=== PATIENT | male | born 1930 ===

== ENCOUNTER 2016-09-08 23:09 | Emergency (ER) | payer MEDICARE, MEDICAID ==
[2016-09-08 23:09] VITALS: BMI 18.9
[2016-09-08 23:18] VITALS: BP 151/88; PULSE 79; RESP 20; TEMP 97.9; O2SAT 99
[2016-09-09 01:02] LABS: BASO # 0.1 K/uL (0.0-0.2); EOS # 0.2 K/uL (0.0-0.7); EOS % 2.8 % (0.0-4.0); HEMATOCRIT 38.7 % (35.0-51.0); LYMPH # 1.1 K/uL (1.0-4.3); LYMPH % 13.1 % (20.0-40.0); MEAN CELL VOLUME 88.7 fl (80.0-94.0); MEAN CORPUSCULAR HEMOGLOBIN 29.8 pg (27.0-31.0); MEAN CORPUSCULAR HGB CONC 33.6 g/dL (33.0-37.0); MEAN PLATELET VOLUME 9.3 fl (7.2-11.7); MONO # 1.2 K/uL (0.0-0.8); MONO % 14.7 % (0.0-10.0); NEUT # 5.5 K/uL (1.8-7.0); NEUT % 68.4 % (50.0-75.0); NRBC % 0.1 % (0.0-0.0); RED CELL DISTRIBUTION WIDTH 14.8 % (11.5-14.5); WHITE BLOOD COUNT 8.1 K/uL (4.8-10.8)
[2016-09-09 01:03] LABS: BLOOD UREA NITROGEN 23 mg/dl (9-20); CALCIUM 8.6 mg/dL (8.4-10.2); CARBON DIOXIDE 27 mmol/L (22-30); CHLORIDE 104 mmol/L (98-107); GFR AFRICAN-AMERICAN > 60; GLUCOSE,RANDOM 75 mg/dL (75-110); POTASSIUM 4.3 MMOL/L (3.6-5.0); SODIUM 140 mmol/l (132-148)
--- NOTE | 2016-09-09 01:03 | ED PDOC ---
- ECG O2 Sat by Pulse Oximetry: 99 (RA) Pulse Ox Interpretation: Normal Medical Decision Making Medical Decision Making: Time: 2025 Initial impression: Strep Throat, Atypical ACS Initial plan: --EKG --BMP --TROPONIN I --EKG-ED --CBC --RAPID STREP GROUP Scribe Attestation: Documented by Sandee Alvares, acting as a scribe for Meliza Patino MD MD Scribe Attestation: All medical record entries made by the Scribe were at my direction and personally dictated by me. I have reviewed the chart and agree that the record accurately reflects my personal performance of the history, physical exam, medical decision making, and the department course for this patient. I have also personally directed, reviewed, and agree with the discharge instructions and disposition.
--- NOTE | 2016-09-09 01:06 | ED PDOC ---
HPI: General Adult Time Seen by Provider: 09/08/16 23:27 Chief Complaint (Nursing): Flu-like Symptoms Chief Complaint (Provider): Flu-Like Symptoms History Per: Patient History/Exam Limitations: no limitations Onset/Duration Of Symptoms: Persistent Have you had recent travel within the past 21 days to any of the following countries: [place], [place], [place] or [place]?: No Current Symptoms Are (Timing): Still Present Severity: Mild Recently: Treated By A Physician Additional Complaint(s): 85 y/o male patient presenting to the ED with throat pain. PT states that he has chronically been suffering from the throat pain and he has been seeing ENT physician Dr. Bustillos in addition to taking medication for the problem. What made him come to the ED tonight was the result of chills and shivering. He states that he only took Tylenol today and the PT denies chest pain and fever. The PT has a past medical history that includes: Atrial Fibrillation, diabetes and Hypertension. Past Medical History Reviewed: Historical Data, Nursing Documentation, Vital Signs Vital Signs: Last Vital Signs Temp 97.9 F 09/08/16 23:14 Pulse 79 09/08/16 23:14 Resp 20 09/08/16 23:14 BP 151/88 H 09/08/16 23:14 Pulse Ox 99 09/09/16 01:12 - Medical History PMH: Arthritis, Atrial Fibrillation, CAD, CHF, Diabetes, HTN, Hypothyroidism Denies: HIV, Chronic Kidney Disease - Surgical History Surgical History: CABG, Pacemaker - Family History Family History: States: Unknown Family Hx - Home Medications Home Medications: Ambulatory Orders Medication Instructions Recorded Aspirin [Ecotrin] 81 mg PO DAILY #0 tabec 07/21/14 Docusate Sodium/Sennosides A 1 tab PO DAILY 07/16/15 [Senokot S 50 MG-8.6 MG] Polyethylene Glycol 3350 [Miralax] 17 gm PO DAILY 07/16/15 Repaglinide [Prandin] 0.5 mg PO BID 07/16/15 Temazepam [Restoril] 30 mg PO HS 07/16/15 Levothyroxine [Synthroid] 50 mcg PO DAILY #30 tab 01/21/16 Atorvastatin [Lipitor] 10 mg PO DAILY 03/30/16 Metoprolol Tartrate [Lopressor] 25 mg PO DAILY 03/30/16 Pantoprazole Sodium [Protonix] 40 mg PO DAILY 03/30/16 Warfarin [Coumadin] 3 mg PO DAILY 03/30/16 Cetirizine HCl [Zyrtec] 10 mg PO DAILY #10 capsule 05/10/16 valACYclovir [Valtrex] 1 gm PO TID #30 tab 05/10/16 - Allergies Allergies/Adverse Reactions: Allergies Allergy/AdvReac Type Severity Reaction Status Date / Time No Known Allergies Allergy Verified 09/30/15 13:46 Review of Systems ROS Statement: Except As Marked, All Systems Reviewed And Found Negative Constitutional: Positive for: Chills. Negative for: Fever ENT: Positive for: Throat Pain Cardiovascular: Negative for: Chest Pain Respiratory: Negative for: Shortness of Breath Physical Exam - Reviewed Nursing Documentation Reviewed: Yes Vital Signs Reviewed: Yes - Physical Exam Appears: Positive for: Non-toxic, No Acute Distress Head Exam: Positive for: ATRAUMATIC, NORMAL INSPECTION, NORMOCEPHALIC Skin: Positive for: Normal Color, Warm ENT: Positive for: Normal ENT Inspection Neck: Positive for: Normal, Painless ROM, Supple Cardiovascular/Chest: Positive for: Regular Rate, Rhythm. Negative for: Murmur Respiratory: Positive for: Normal Breath Sounds. Negative for: Respiratory Distress Neurologic/Psych: Positive for: Alert, Oriented. Negative for: Motor/Sensory Deficits - Laboratory Results Result Diagrams: 09/09/16 00:01 09/09/16 00:01 - ECG O2 Sat by Pulse Oximetry: 99 (RA) Pulse Ox Interpretation: Normal Medical Decision Making Medical Decision Making: Time: 2016 Initial impression: Strep Throat, Atypical ACS Initial plan: --EKG --BMP --TROPONIN I --EKG-ED --CBC --RAPID STREP GROUP Scribe Attestation: Documented by Sandee Alvares, acting as a scribe for Meliza Patino MD MD Scribe Attestation: All medical record entries made by the Scribe were at my direction and personally dictated by me. I have reviewed the chart and agree that the record accurately reflects my personal performance of the history, physical exam, medical decision making, and the department course for this patient. I have also personally directed, reviewed, and agree with the discharge instructions and disposition. Disposition - Clinical Impression Clinical Impression: Pharyngitis - Patient ED Disposition Is Patient to be Admitted: No Doctor Will See Patient In The: Office Counseled Patient/Family Regarding: Studies Performed, Diagnosis, Need For Followup - Disposition Referrals: Lucio Carmen MD [Family Provider] - Jae Bustillos MD [Staff Provider] - Disposition: Routine/Home Disposition Time: 02:06 Condition: GOOD Additional Instructions: Follow up with your PCP in 2-3 days. Instructions: Pharyngitis (ED) Print Language: [place]LAND[place]
--- NOTE | 2016-09-09 13:59 | CARD ---
APPROVED REPORT EKG Measurement Heart [id number] <Conclusion> AV dual-paced rhythm with prolonged AV conduction Abnormal ECG
== END 2016-09-09 02:32 | disposition home or self-care (01) ==
LOC: H.ER 23:09
DX: J02.9 Acute pharyngitis, unspecified (principal)

== ENCOUNTER 2016-11-07 08:00 | Day surgery (SDC) | payer MEDICARE, MEDICAID ==
[2016-11-07] MEDS ORDERED: Lactated Ringer's 500 ML IV ONE (10:01)
[2016-11-07 10:25] VITALS: BP 143/733; PULSE 69; RESP 13; TEMP 96.4; O2SAT 100
[2016-11-07] MEDS ORDERED: Propofol 10 mg/ml Inj (20 ML) ONE (11:47)
== END 2016-11-07 13:01 | disposition home or self-care (01) ==
LOC: H.ENDO 08:00
PROVIDERS: ATTEND Internal Medicine Gastroenterology
DX: R13.10 Dysphagia, unspecified (principal); I48.91 Unspecified atrial fibrillation; E11.9 Type 2 diabetes mellitus without complications; E03.9 Hypothyroidism, unspecified; K44.9 Diaphragmatic hernia without obstruction or gangrene; K31.9 Disease of stomach and duodenum, unspecified; Z98.0 Intestinal bypass and anastomosis status
CPT/HCPCS: 43239; 88305; J2001; J2704; J7120

== ENCOUNTER 2016-12-15 08:45 | Inpatient (IN) | payer MEDICARE, MEDICAID ==
[2016-12-15 08:46] VITALS: BMI 18.9
--- NOTE | 2016-12-15 09:52 | ED PDOC ---
Syncope/Near Syncope/Dizziness Time Seen by Provider: 12/15/16 09:14 Chief Complaint (Nursing): Dizziness/Lightheaded Chief Complaint (Provider): Dizziness/Lightheaded History Per: Patient History/Exam Limitations: no limitations Current Symptoms Are (Timing): Still Present Additional Complaint(s): 86 y/o male presents to the emergency department after experiencing syncopal episode this morning. Associated with generalized weakness and lightheadedness. Reports he woke up around 6am, felt hot, walked to the bathroom, and when he made it back to the bed he passed out. States he then woke up and was still on the bed. Patient has been ambulating since syncopal episode. Also complaints of a throat pain x2 months, after evaluated by ears, nose, throat doctor and given Cepacol. Denies chest pain, palpitations, shortness of breath, headache, paresthesias, or focal weakness. Past Medical History Reviewed: Historical Data, Nursing Documentation, Vital Signs Vital Signs: Last Vital Signs Temp 96 F L 12/15/16 08:59 Pulse 69 12/15/16 08:59 Resp 18 12/15/16 08:59 BP 150/69 12/15/16 08:59 Pulse Ox 100 12/15/16 08:59 - Medical History PMH: Arthritis, Atrial Fibrillation, CAD, Cardia Arrhythmia (A-FIB), CHF, Diabetes, HTN, Hypothyroidism Denies: HIV, Chronic Kidney Disease - Surgical History Surgical History: CABG, Pacemaker - Family History Family History: States: Unknown Family Hx - Social History Current smoker - smoking cessation education provided: No Alcohol: None Drugs: Denies - Home Medications Home Medications: Ambulatory Orders Medication Instructions Recorded Atorvastatin [Lipitor] 10 mg PO HS 12/15/16 Hyoscyamine [Levsin] 0.125 mg PO BID 12/15/16 Loratadine [Claritin] 10 mg PO DAILY PRN 12/15/16 Metoprolol Tartrate [Lopressor] 25 mg PO DAILY 12/15/16 Repaglinide [Prandin] 0.5 mg PO BID 12/15/16 Temazepam [Restoril] 30 mg PO HS 12/15/16 Warfarin [Coumadin] 3 mg PO DAILY 12/15/16 - Allergies Allergies/Adverse Reactions: Allergies Allergy/AdvReac Type Severity Reaction Status Date / Time No Known Allergies Allergy Verified 09/30/15 13:46 Review of Systems ROS Statement: Except As Marked, All Systems Reviewed And Found Negative Constitutional: Positive for: Weakness (Generalized), Other (Lightheadedness) ENT: Positive for: Throat Pain Cardiovascular: Negative for: Chest Pain, Palpitations Respiratory: Negative for: Shortness of Breath Musculoskeletal: Negative for: Other (Paresthesias) Neurological: Positive for: Other (Syncope). Negative for: Weakness (No focal weakness), Headache Physical Exam - Reviewed Nursing Documentation Reviewed: Yes Vital Signs Reviewed: Yes - Physical Exam Appears: Positive for: Non-toxic, No Acute Distress Head Exam: Positive for: ATRAUMATIC, NORMAL INSPECTION, NORMOCEPHALIC Skin: Positive for: Normal Color, Warm, Dry Eye Exam: Positive for: Normal appearance ENT: Positive for: Normal ENT Inspection. Negative for: Pharyngeal Erythema, Tonsillar Swelling Neck: Positive for: Normal, Supple Cardiovascular/Chest: Positive for: Regular Rate, Rhythm. Negative for: Murmur Respiratory: Positive for: Normal Breath Sounds. Negative for: Accessory Muscle Use, Respiratory Distress Gastrointestinal/Abdominal: Positive for: Normal Exam, Soft. Negative for: Tenderness Back: Positive for: Normal Inspection Extremity: Positive for: Normal ROM. Negative for: Pedal Edema Neurologic/Psych: Positive for: Alert, diagnostic radiologist II-XII (Intact. ), Oriented (x3), Cerebellar Tests (Normal. ). Negative for: Motor/Sensory Deficits, Facial Droop - Laboratory Results Result Diagrams: 12/17/16 05:30 12/17/16 05:30 - ECG O2 Sat by Pulse Oximetry: 100 (RA) Pulse Ox Interpretation: Normal Medical Decision Making Medical Decision Making: Time: 09:37 Initial Impression: Syncope and chronic throat pain Initial Plan: --VBG Shock Panel --Head CT --EKG --CMP --Troponin I --Urine DIP --CBC w. diff --PTT & Prothrombin --Chest x-ray --Blood and throat culture --AccuCheck --Rapid Strep Group --Urinalysis --Reevaluation Time: 10:03 --Head CT FINDINGS: HEMORRHAGE: No acute hemorrhage. Bilateral frontal extra-axial low-density fluid collections with mild sulcal flattening likely representing chronic subdural hygromas. Differential diagnosis would include bilateral frontal atrophy. This is grossly unchanged in appearance and extent when compared to prior CT examination. No evidence of acute extra-axial hemorrhage. BRAIN: No mass effect or edema. Mild generalized atrophy consistent with patient age. VENTRICLES: Unremarkable. No hydrocephalus. CALVARIUM: Unremarkable. PARANASAL SINUSES: Minimal chronic right maxillary sinusitis. Small polyp/retention cyst at right frontoethmoidal recess. MASTOID AIR CELLS: Unremarkable as visualized. No inflammatory changes. OTHER FINDINGS: None. 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 No acute intracranial hemorrhage. No intracranial mass or evidence of acute infarct. Chronic right maxillary sinusitis. Small retention cyst/polyp at right frontoethmoidal recess. Time: 11:56 --Admit to hospital routine: As Inpatient in telemetry for syncope and throat pain under the care of Dr. vIette Farias MD Scribe Attestation: Documented by Marisol Clifford, acting as a scribe for Naa Hernandez MD. Provider Scribe Attestation: All medical record entries made by the Scribe were at my direction and personally dictated by me. I have reviewed the chart and agree that the record accurately reflects my personal performance of the history, physical exam, medical decision making, and the department course for this patient. I have also personally directed, reviewed, and agree with the discharge instructions and disposition. Disposition - Clinical Impression Clinical Impression: Syncope and collapse, Throat pain - Patient ED Disposition Is Patient to be Admitted: Yes (As Inpatient in telemetry under the care of Dr. Ivette Farias MD) Counseled Patient/Family Regarding: Studies Performed, Diagnosis - Disposition Disposition Time: 11:56 Condition: STABLE
--- NOTE | 2016-12-15 10:05 | CT ---
PROCEDURE: CT HEAD WITHOUT CONTRAST. HISTORY: Syncope COMPARISON: 01/21/2016 TECHNIQUE: Axial computed tomography images were obtained through the head/brain without intravenous contrast. Radiation dose: Total exam DLP = 888.51 mGy-cm. This CT exam was performed using one or more of the following dose reduction techniques: Automated exposure control, adjustment of the mA and/or kV according to patient size, and/or use of iterative reconstruction technique. FINDINGS: HEMORRHAGE: No acute hemorrhage. Bilateral frontal extra-axial low-density fluid collections with mild sulcal flattening likely representing chronic subdural hygromas. Differential diagnosis would include bilateral frontal atrophy. This is grossly unchanged in appearance and extent when compared to prior CT examination. No evidence of acute extra-axial hemorrhage. BRAIN: No mass effect or edema. Mild generalized atrophy consistent with patient age. VENTRICLES: Unremarkable. No hydrocephalus. CALVARIUM: Unremarkable. PARANASAL SINUSES: Minimal chronic right maxillary sinusitis. Small polyp/retention cyst at right frontoethmoidal recess. MASTOID AIR CELLS: Unremarkable as visualized. No inflammatory changes. OTHER FINDINGS: None. 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 No acute intracranial hemorrhage. No intracranial mass or evidence of acute infarct. Chronic right maxillary sinusitis. Small retention cyst/polyp at right frontoethmoidal recess.
[2016-12-15 10:17] LABS: BASO % 0.6 % (0.0-2.0); EOS # 0.1 K/uL (0.0-0.7); EOS % 1.5 % (0.0-4.0); HEMATOCRIT 43.8 % (35.0-51.0); LYMPH # 0.8 K/uL (1.0-4.3); LYMPH % 12.6 % (20.0-40.0); MEAN CELL VOLUME 88.1 fl (80.0-94.0); MEAN CORPUSCULAR HEMOGLOBIN 28.9 pg (27.0-31.0); MEAN CORPUSCULAR HGB CONC 32.8 g/dL (33.0-37.0); MEAN PLATELET VOLUME 9.2 fl (7.2-11.7); MONO # 0.7 K/uL (0.0-0.8); NEUT # 4.6 K/uL (1.8-7.0); NEUT % 74.3 % (50.0-75.0); NRBC % 0.1 % (0.0-0.0); WHITE BLOOD COUNT 6.2 K/uL (4.8-10.8)
[2016-12-15 10:22] LABS: VENOUS BLOOD GAS BASE EXCESS 5.7 mmol/L (0.0-2.0); VENOUS BLOOD GAS PCO2 53 mmHg (40-60); VENOUS BLOOD PH 7.39 (7.32-7.43)
[2016-12-15 10:27] LABS: ALB/GLOB RATIO 1.3 (1.0-2.1); ALKALINE PHOSPHATASE 115 U/L (38-126); ALT/SGPT 41 U/L (21-72); AST/SGOT 46 U/L (17-59); BILIRUBIN,TOTAL 0.7 mg/dl (0.2-1.3); BLOOD UREA NITROGEN 23 mg/dl (9-20); CALCIUM 9.7 mg/dL (8.4-10.2); CARBON DIOXIDE 27 mmol/L (22-30); CHLORIDE 103 mmol/L (98-107); GFR AFRICAN-AMERICAN > 60; GLUCOSE,RANDOM 110 mg/dL (75-110); SODIUM 146 mmol/l (132-148)
[2016-12-15 10:33] LABS: PARTIAL THROMBOPLASTIN TIME 39.8 Seconds (25.6-37.1); POTASSIUM 5.1 MMOL/L (3.6-5.0)
--- NOTE | 2016-12-15 11:53 | RAD ---
HISTORY: Syncope COMPARISON: No prior. FINDINGS: LUNGS: No infiltrate. Mild pulmonary hyperinflation suggestive of emphysema. Correlate clinically. PLEURA: No significant pleural effusion identified, no pneumothorax apparent. CARDIOVASCULAR: Normal heart size. Status post CABG. Permanent pacemaker. OSSEOUS STRUCTURES: No significant abnormalities. VISUALIZED UPPER ABDOMEN: Normal. OTHER FINDINGS: None. IMPRESSION: No acute infiltrate.
[2016-12-15 12:06] LABS: RBC URINE 1 /hpf (0-3); URINE BACTERIA RARE (<OCC); URINE BILIRUBIN NEGATIVE (NEGATIVE); URINE BLOOD NEGATIVE (NEGATIVE); URINE COLOR STRAW (YELLOW); URINE GLUCOSE (UA) NEG (Normal); URINE KETONE NEGATIVE (NEGATIVE); URINE LEUKOCYTE ESTERASE NEG Leu/uL (Negative); URINE PROTEIN NEGATIVE (NEGATIVE); URINE UROBILINOGEN 0.2-1.0 mg/dL (0.2-1.0); WBC URINE < 1 /hpf (0-5)
[2016-12-15] MEDS ORDERED: Iodixanol 320 mg/ml 50 ml Sol IV ONE (12:50)
[2016-12-15] MEDS ORDERED: Sodium Chloride 0.9% 50 ML IV ONE (12:50)
--- NOTE | 2016-12-15 14:19 | CP.PCM.CON ---
History of Present Illness - History of Present Illness History of Present Illness: Mr. Sarmiento is an 86-year-old man with a past medical history of arthritis, hearing loss, previous otitis media, Atrial Fibrillation, CAD, atrial fibrillation, CHF, Diabetes, HTN, Hypothyroidism, who presented to the ED after an episode of syncope. According to the patient, he got out of bed in the morning and felt light-headed, weak and thought he would pass out. He went back to bed, where he lost consciousness for about 5-10 minutes. He woke up and did not have any tongue biting, urinary/bowel incontinence or any evidence of convulsions or muscle aches. He woke up and was still feeling a little light -headed, but he was able to ambulate to the ED. Review of Systems - Review of Systems All systems: reviewed and no additional remarkable complaints except Past Patient History - Infectious Disease Hx of Infectious Diseases: None - Past Medical History & Family History Past Medical History?: Yes - Past Social History Alcohol: None Drugs: Denies - CARDIAC Hx Cardiac Disorders: Yes - PULMONARY Hx Respiratory Disorders: No - NEUROLOGICAL Hx Neurological Disorder: No - HEENT Hx HEENT Problems: No - RENAL Hx Chronic Kidney Disease: No - ENDOCRINE/METABOLIC Hx Endocrine Disorders: Yes - HEMATOLOGICAL/ONCOLOGICAL Hx Blood Disorders: No - INTEGUMENTARY Hx Dermatological Problems: No - MUSCULOSKELETAL/RHEUMATOLOGICAL Hx Musculoskeletal Disorders: No - GASTROINTESTINAL Hx Gastrointestinal Disorders: No - GENITOURINARY/GYNECOLOGICAL Hx Genitourinary Disorders: No - PSYCHIATRIC Hx Psychophysiologic Disorder: No - SURGICAL HISTORY Hx Coronary Artery Bypass Graft: Yes - ANESTHESIA Hx Anesthesia: Yes Hx Anesthesia Reactions: No Hx Malignant Hyperthermia: No Meds Allergies/Adverse Reactions: Allergies Allergy/AdvReac Type Severity Reaction Status Date / Time No Known Allergies Allergy Verified 09/30/15 13:46 - Medications Medications: Current Medications Aspirin (Ecotrin) 81 mg PO DAILY [facility] Last Admin: 12/15/16 12:20 Dose: 81 mg Atorvastatin Calcium (Lipitor) 10 mg PO DAILY [facility] Physical Exam - Constitutional Appears: Well - Head Exam Head Exam: ATRAUMATIC, NORMAL INSPECTION, NORMOCEPHALIC - Eye Exam Eye Exam: EOMI, Normal appearance, PERRL - ENT Exam ENT Exam: Mucous Membranes Moist, Normal Exam - Neck Exam Neck exam: Positive for: Normal Inspection - Respiratory Exam Respiratory Exam: Clear to Auscultation Bilateral, NORMAL BREATHING PATTERN - Cardiovascular Exam Cardiovascular Exam: Irregular Rhythm, +S1, +S2 - GI/Abdominal Exam GI & Abdominal Exam: Normal Bowel Sounds, Soft. absent: Tenderness - Rectal Exam Rectal Exam: Deferred - Extremities Exam Extremities exam: Positive for: normal inspection - Back Exam Back exam: NORMAL INSPECTION - Neurological Exam Neurological exam: Alert, CN II-XII Intact, Normal Gait, Oriented x3, Reflexes Normal - Expanded Neurological Exam Expanded Patient oriented to: person, place, time Ataxia: No Cerebellar Function: Finger to Nose: Normal, Heel to [place]: Normal Upper motor neuron: Babinski Sign: Normal Sensory exam: Lower Extremity Light Touch: Normal, Lower Extremity Pin Prick: Normal, Upper Extremity Light Touch: Normal, Upper Extremity Pin Prick: Normal Neuro motor strength exam: Left Upper Extremity: 5, Right Upper Extremity: 5, Left Lower Extremity: 5, Right Lower Extremity: 5 DTR: Achilles Tendon Left: 2+, Achilles Tendon Right: 2+, Bicep Left: 2+, Bicep Right: 2+, Brachioradialis Left: 2+, Brachioradialis Right: 2+, Patellar Left: 2 +, Patellar Right: 2+, Tricep Left: 2+, Tricep Right: 2+ - Psychiatric Exam Psychiatric exam: Normal Affect, Normal Mood - Skin Skin Exam: Dry, Intact, Normal Color, Warm Results - Vital Signs Recent Vital Signs: Last Vital Signs Temp 96 F L 12/15/16 08:59 Pulse 69 12/15/16 08:59 Resp 18 12/15/16 08:59 BP 150/69 12/15/16 08:59 Pulse Ox 100 12/15/16 12:00 - Labs Result Diagrams: 12/15/16 10:04 12/15/16 10:04 Labs: Laboratory Results - last 24 hr 12/15/16 12/15/16 12/15/16 09:11 09:52 10:04 WBC 6.2 RBC 4.97 Hgb 14.4 Hct 43.8 MCV 88.1 MCH 28.9 MCHC 32.8 L RDW 15.0 H Plt Count 166 MPV 9.2 Neut % (Auto) 74.3 Lymph % (Auto) 12.6 L [place] % (Auto) 11.0 H Eos % (Auto) 1.5 Baso % (Auto) 0.6 Neut # 4.6 Lymph # 0.8 L [place] # 0.7 Eos # 0.1 Baso # 0.0 PT INR APTT pO2 VBG pH VBG pCO2 VBG HCO3 VBG Total CO2 VBG O2 Sat (Calc) VBG Base Excess VBG Potassium Glucose Lactate FiO2 Sodium Potassium Chloride Carbon Dioxide Anion Gap BUN Creatinine Est GFR ( Amer) Est GFR (Non-Af Amer) POC Glucose (mg/dL) 98 Random Glucose Calcium Total Bilirubin AST ALT Alkaline Phosphatase Troponin I Total Protein Albumin Globulin Albumin/Globulin Ratio Venous Blood Potassium Urine Color Urine Clarity Urine pH Ur Specific [place] Urine Protein Urine Glucose (UA) Urine Ketones Urine Blood Urine Nitrate Urine Bilirubin Urine Urobilinogen Ur Leukocyte Esterase Urine RBC (Auto) Urine Microscopic WBC Urine Bacteria Grp A Beta Strep Ag Negative 12/15/16 12/15/16 12/15/16 10:04 10:04 10:15 WBC RBC Hgb Hct MCV MCH MCHC RDW Plt Count MPV Neut % (Auto) Lymph % (Auto) [place] % (Auto) Eos % (Auto) Baso % (Auto) Neut # Lymph # [place] # Eos # Baso # PT 20.1 H INR 1.9 H APTT 39.8 H pO2 13 L VBG pH 7.39 VBG pCO2 53 VBG HCO3 27.1 VBG Total CO2 33.7 H VBG O2 Sat (Calc) 17.1 L VBG Base Excess 5.7 H VBG Potassium 5.1 Glucose 115 H Lactate 2.1 FiO2 21.0 Sodium 146 140.0 Potassium 5.1 H Chloride 103 104.0 Carbon Dioxide 27 Anion Gap 21 H BUN 23 H Creatinine 1.1 Est GFR ( Amer) > 60 Est GFR (Non-Af Amer) > 60 POC Glucose (mg/dL) Random Glucose 110 Calcium 9.7 Total Bilirubin 0.7 AST 46 ALT 41 Alkaline Phosphatase 115 Troponin I < 0.0120 Total Protein 8.0 Albumin 4.5 Globulin 3.5 Albumin/Globulin Ratio 1.3 Venous Blood Potassium 5.1 Urine Color Urine Clarity Urine pH Ur Specific [place] Urine Protein Urine Glucose (UA) Urine Ketones Urine Blood Urine Nitrate Urine Bilirubin Urine Urobilinogen Ur Leukocyte Esterase Urine RBC (Auto) Urine Microscopic WBC Urine Bacteria Grp A Beta Strep Ag 12/15/16 11:50 WBC RBC Hgb Hct MCV MCH MCHC RDW Plt Count MPV Neut % (Auto) Lymph % (Auto) [place] % (Auto) Eos % (Auto) Baso % (Auto) Neut # Lymph # [place] # Eos # Baso # PT INR APTT pO2 VBG pH VBG pCO2 VBG HCO3 VBG Total CO2 VBG O2 Sat (Calc) VBG Base Excess VBG Potassium Glucose Lactate FiO2 Sodium Potassium Chloride Carbon Dioxide Anion Gap BUN Creatinine Est GFR ( Amer) Est GFR (Non-Af Amer) POC Glucose (mg/dL) Random Glucose Calcium Total Bilirubin AST ALT Alkaline Phosphatase Troponin I Total Protein Albumin Globulin Albumin/Globulin Ratio Venous Blood Potassium Urine Color Straw Urine Clarity Clear Urine pH 7.0 Ur Specific [place] 1.010 Urine Protein Negative Urine Glucose (UA) Neg Urine Ketones Negative Urine Blood Negative Urine Nitrate Negative Urine Bilirubin Negative Urine Urobilinogen 0.2-1.0 Ur Leukocyte Esterase Neg Urine RBC (Auto) 1 Urine Microscopic WBC < 1 Urine Bacteria Rare Grp A Beta Strep Ag Assessment & Plan (1) Syncope and collapse Assessment and Plan: Based on the history, the patient likely had neuro-cardiogenic or vasovagal syncope. No indication this was a seizure. I recommend obtaining orthostatics , and a CTA of the head/neck to rule out vertebrobasilar insufficiency. Otherwise, a cardiac work-up is recommended. Continue fluids with NS at 100 mL/ hr and treat any potential infectious etiology. MRI of the brain may be obtain without contrast to rule out posterior circulation infarction. Thank you. Status: Acute Priority: Medium
--- NOTE | 2016-12-15 14:32 | CP.PCM.HP ---
History of Present Illness - History of Present Illness History of Present Illness: 86yo M with extensive PMHx CAD, CHF, Afib, pacemaker, HTN, HLD, DM, hypothyroidism admitted for syncope. syncopal episode today upon awakening from sleep to go to bathroom with LOC on bed for ~5-15 minutes unwitnessed at ~6AM today. a/w dizziness x2 months. h/o prior admission 01/2016 for dizziness and inner ear issue. Denies fever, chills, n/v, chest pain, SOB, focal weakness, new neuro deficits, slurring speech, vision change, bladder/bowel incontinence. a/w sore throat x 2 months, evaluated by ENT Dr. Bahena and GI Dr Epperson with findings of gastritis. pt not compliant with medication. PMD: [facility] Cardiology Dr. Shelley PMHx: CAD, CHF, Afib, pacemaker, HTN, HLD, DM, hypothyroidism SHx: CABG, Pacemaker Allergies: NKDA Social hx: denies smoking, EtOH, drugs. 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 Medications: checked with [facility] ED course: GBS neg CBC no leukocytosis, no anemia CT head no acute change, Chronic sinusitis CXR no acute change orthostatic vitals EKG CMP troponin neg Present on Admission - Present on Admission Any Indicators Present on Admission: No Review of Systems - Review of Systems All systems: reviewed and no additional remarkable complaints except - Neurological Neurological: Dizziness, Syncope Past Patient History - Infectious Disease Hx of Infectious Diseases: None - Past Medical History & Family History Past Medical History?: Yes - Past Social History Alcohol: None Drugs: Denies - CARDIAC Hx Cardiac Disorders: Yes - PULMONARY Hx Respiratory Disorders: No - NEUROLOGICAL Hx Neurological Disorder: No - HEENT Hx HEENT Problems: No - RENAL Hx Chronic Kidney Disease: No - ENDOCRINE/METABOLIC Hx Endocrine Disorders: Yes - HEMATOLOGICAL/ONCOLOGICAL Hx Blood Disorders: No - INTEGUMENTARY Hx Dermatological Problems: No - MUSCULOSKELETAL/RHEUMATOLOGICAL Hx Musculoskeletal Disorders: No - GASTROINTESTINAL Hx Gastrointestinal Disorders: No - GENITOURINARY/GYNECOLOGICAL Hx Genitourinary Disorders: No - PSYCHIATRIC Hx Psychophysiologic Disorder: No - SURGICAL HISTORY Hx Coronary Artery Bypass Graft: Yes - ANESTHESIA Hx Anesthesia: Yes Hx Anesthesia Reactions: No Hx Malignant Hyperthermia: No Meds Allergies/Adverse Reactions: Allergies Allergy/AdvReac Type Severity Reaction Status Date / Time No Known Allergies Allergy Verified 09/30/15 13:46 Physical Exam - Constitutional Appears: Non-toxic, No Acute Distress - Head Exam Head Exam: NORMAL INSPECTION - Eye Exam Eye Exam: EOMI, PERRL - ENT Exam ENT Exam: Mucous Membranes Moist - Neck Exam Neck exam: Positive for: Lymphadenopathy, Normal Inspection - Respiratory Exam Respiratory Exam: Clear to Auscultation Bilateral - Cardiovascular Exam Cardiovascular Exam: REGULAR RHYTHM Additional comments: pacemaker paced - GI/Abdominal Exam GI & Abdominal Exam: Normal Bowel Sounds, Soft - Extremities Exam Extremities exam: Positive for: normal inspection, pedal edema - Back Exam Back exam: NORMAL INSPECTION - Neurological Exam Neurological exam: Alert, CN II-XII Intact, Oriented x3 - Skin Skin Exam: Dry, Warm Results - Vital Signs Recent Vital Signs: Last Vital Signs Temp 96 F L 12/15/16 08:59 Pulse 69 12/15/16 08:59 Resp 18 12/15/16 08:59 BP 150/69 12/15/16 08:59 Pulse Ox 100 12/15/16 12:00 - Labs Result Diagrams: 12/15/16 10:04 12/15/16 10:04 Labs: Laboratory Results - last 24 hr 12/15/16 12/15/16 12/15/16 09:11 09:52 10:04 WBC 6.2 RBC 4.97 Hgb 14.4 Hct 43.8 MCV 88.1 MCH 28.9 MCHC 32.8 L RDW 15.0 H Plt Count 166 MPV 9.2 Neut % (Auto) 74.3 Lymph % (Auto) 12.6 L Hancock % (Auto) 11.0 H Eos % (Auto) 1.5 Baso % (Auto) 0.6 Neut # 4.6 Lymph # 0.8 L Hancock # 0.7 Eos # 0.1 Baso # 0.0 PT INR APTT pO2 VBG pH VBG pCO2 VBG HCO3 VBG Total CO2 VBG O2 Sat (Calc) VBG Base Excess VBG Potassium Glucose Lactate FiO2 Sodium Potassium Chloride Carbon Dioxide Anion Gap BUN Creatinine Est GFR ( Amer) Est GFR (Non-Af Amer) POC Glucose (mg/dL) 98 Random Glucose Calcium Total Bilirubin AST ALT Alkaline Phosphatase Troponin I Total Protein Albumin Globulin Albumin/Globulin Ratio Triglycerides Cholesterol LDL Cholesterol Direct HDL Cholesterol Vitamin B12 TSH 3rd Generation Venous Blood Potassium Urine Color Urine Clarity Urine pH Ur Specific [place] Urine Protein Urine Glucose (UA) Urine Ketones Urine Blood Urine Nitrate Urine Bilirubin Urine Urobilinogen Ur Leukocyte Esterase Urine RBC (Auto) Urine Microscopic WBC Urine Bacteria Grp A Beta Strep Ag Negative 12/15/16 12/15/16 12/15/16 10:04 10:04 10:15 WBC RBC Hgb Hct MCV MCH MCHC RDW Plt Count MPV Neut % (Auto) Lymph % (Auto) Hancock % (Auto) Eos % (Auto) Baso % (Auto) Neut # Lymph # Hancock # Eos # Baso # PT 20.1 H INR 1.9 H APTT 39.8 H pO2 13 L VBG pH 7.39 VBG pCO2 53 VBG HCO3 27.1 VBG Total CO2 33.7 H VBG O2 Sat (Calc) 17.1 L VBG Base Excess 5.7 H VBG Potassium 5.1 Glucose 115 H Lactate 2.1 FiO2 21.0 Sodium 146 140.0 Potassium 5.1 H Chloride 103 104.0 Carbon Dioxide 27 Anion Gap 21 H BUN 23 H Creatinine 1.1 Est GFR ( Amer) > 60 Est GFR (Non-Af Amer) > 60 POC Glucose (mg/dL) Random Glucose 110 Calcium 9.7 Total Bilirubin 0.7 AST 46 ALT 41 Alkaline Phosphatase 115 Troponin I < 0.0120 Total Protein 8.0 Albumin 4.5 Globulin 3.5 Albumin/Globulin Ratio 1.3 Triglycerides Cholesterol LDL Cholesterol Direct HDL Cholesterol Vitamin B12 413 TSH 3rd Generation 13.20 H Venous Blood Potassium 5.1 Urine Color Urine Clarity Urine pH Ur Specific [place] Urine Protein Urine Glucose (UA) Urine Ketones Urine Blood Urine Nitrate Urine Bilirubin Urine Urobilinogen Ur Leukocyte Esterase Urine RBC (Auto) Urine Microscopic WBC Urine Bacteria Grp A Beta Strep Ag 12/15/16 12/15/16 11:50 12:29 WBC RBC Hgb Hct MCV MCH MCHC RDW Plt Count MPV Neut % (Auto) Lymph % (Auto) [place] % (Auto) Eos % (Auto) Baso % (Auto) Neut # Lymph # Hancock # Eos # Baso # PT INR APTT pO2 VBG pH VBG pCO2 VBG HCO3 VBG Total CO2 VBG O2 Sat (Calc) VBG Base Excess VBG Potassium Glucose Lactate FiO2 Sodium Potassium Chloride Carbon Dioxide Anion Gap BUN Creatinine Est GFR ( Amer) Est GFR (Non-Af Amer) POC Glucose (mg/dL) Random Glucose Calcium Total Bilirubin AST ALT Alkaline Phosphatase Troponin I Total Protein Albumin Globulin Albumin/Globulin Ratio Triglycerides Cancelled Cholesterol Cancelled LDL Cholesterol Direct Cancelled HDL Cholesterol Cancelled Vitamin B12 Cancelled TSH 3rd Generation Cancelled Venous Blood Potassium Urine Color Straw Urine Clarity Clear Urine pH 7.0 Ur Specific [place] 1.010 Urine Protein Negative Urine Glucose (UA) Neg Urine Ketones Negative Urine Blood Negative Urine Nitrate Negative Urine Bilirubin Negative Urine Urobilinogen 0.2-1.0 Ur Leukocyte Esterase Neg Urine RBC (Auto) 1 Urine Microscopic WBC < 1 Urine Bacteria Rare Grp A Beta Strep Ag Assessment & Plan - Assessment and Plan (Free Text) Assessment: 86yo M with extensive PMHx CAD, CHF, Afib, pacemaker, HTN, HLD, DM, hypothyroidism admitted for syncope. syncope with h/o extensive cardiac comorbidites -consider vasovagal, orthostatic hypotension, chronic sinusitis -ECHO -CTA head/neck -orthostatic vitals -neuro c/s, appreciate input chronic sinusitis -CT head, chronic sinustitis -start augmentin CAD -c/w ASA CHF -ECHO Afib (s/p pacemaker) -INR 1.9 -AM INR check -coumadin for tomorrow as pt not sure if he took it HLD -c/w statin -lipid panel DM -hold prandin -HgbA1c -SSI -accuchecks hypothyroidism -TFTs, elevated TSH -restart synthroid 50mcg DVT ppx -coumadin tomorrow Decision To Admit - Pt Status Changed To: Hospital Disposition Of: Inpatient - Admit Certification Admit to Inpatient:: After my assessment, the patient will require hospitalization for at least two midnights. This is because of the severity of symptoms shown, intensity of services needed, and/or the medical risk in this patient being treated as an outpatient. - . Bed Request Type: Telemetry Admitting Physician: Ivette Farias
[2016-12-15 14:34] LABS: CHOLESTEROL 165 mg/dL (0-199)
[2016-12-15] MEDS ORDERED: Glucagon Recombinant 1 mg Inj IM PRN (14:58)
[2016-12-15] MEDS ORDERED: Dextrose 50% SYRINGE Inj (50 ml) IV PRN (14:58)
--- NOTE | 2016-12-15 15:55 | CT ---
PROCEDURE: CT Angiography of the Brain. HISTORY: syncope COMPARISON: None available. TECHNIQUE: CT angiography of the intracranial arteries was performed. Coronal and sagittal maximum intensity projection reformated images were generated. Total radiation dose DLP: 2259.[address] exam was performed using one or more of the following dose reduction techniques: Automated exposure control, adjustment of the mA and/or kV according to patient size, and/or use of iterative reconstruction technique. FINDINGS: INTERNAL CEREBRAL ARTERIES: Unremarkable. The skull base, petrous, cavernous and supraclinoid segments are bilaterally widely patient. ANTERIOR CEREBRAL ARTERIES: Unremarkable. A1 and A2 segments are widely patent. Smaller distal branches unremarkable, as visualized. MIDDLE CEREBRAL ARTERIES: Unremarkable. M1 and M2 segments are widely patent. Perisylvian branches grossly symmetric. POSTERIOR CIRCULATION: Basilar Artery: Unremarkable. Distal Vertebral Arteries: Unremarkable. Posterior Cerebral Arteries: Unremarkable. Posterior Inferior Cerebellar Arteries: Unremarkable. ANEURYSM/ VASCULAR MALFORMATIONS: None. OTHER FINDINGS: CERVICAL CTA RESULTS: Common carotid arteries: The bilateral common carotid appear widely patent from their origins to their bifurcations with no significant stenosis appreciated. No evidence to suggest common carotid artery dissection. Limited bilateral carotid bulbar atherosclerosis appreciated. Internal carotid arteries: No significant stenosis is appreciated throughout the cervical internal carotid artery segments bilaterally and there is no evidence of dissection either. Vertebral arteries: The bilateral vertebral artery normal in caliber from their origins to their union with the basilar artery. Vertebrobasilar system appears left dominant. No significant stenosis or definite pattern of dissection. Incidentally, the bilateral subclavian arteries are widely patent as well as the brachiocephalic artery, though mildly atherosclerotic. IMPRESSION: Unremarkable CT Angiography of the Brain.
[2016-12-15] MEDS: Sodium Chloride 0.9% 500 ML IV SCH (16:00)
[2016-12-15] MEDS ORDERED: Influenza Vaccine 18yr & older 0.5 ML/45 MCG SYR IM ONE (17:00)
[2016-12-15] MEDS ORDERED: Pneumococcal 23-Valent Vaccine IM ONE (17:00)
[2016-12-15] MEDS: Hyoscyamine 0.125 mg SL Tab PO SCH (17:35)
[2016-12-15] MEDS: Insulin Regular 100 units/ml SC SCH ×2 (17:35→21:31)
[2016-12-15] MEDS: Benzocaine/Menthol (Cepacol) Lozenge PO PRN ×2 (18:39→21:30)
[2016-12-15] MEDS: Amoxicillin-Clav 875-125 mg Tab PO SCH (21:30)
[2016-12-16] MEDS: Sodium Chloride 0.9% 500 ML IV SCH ×2 (01:00→12:04)
[2016-12-16] MEDS: Levothyroxine 50 MCG TAB PO SCH (06:34)
[2016-12-16] MEDS: Insulin Regular 100 units/ml SC SCH ×4 (06:34→21:40)
[2016-12-16 07:31] LABS: BLOOD UREA NITROGEN 20 mg/dl (9-20); CALCIUM 9.1 mg/dL (8.4-10.2); CARBON DIOXIDE 27 mmol/L (22-30); CHLORIDE 103 mmol/L (98-107); GFR AFRICAN-AMERICAN > 60; GLUCOSE,RANDOM 114 mg/dL (75-110); POTASSIUM 4.2 MMOL/L (3.6-5.0); SODIUM 144 mmol/l (132-148)
[2016-12-16] MEDS: Amoxicillin-Clav 875-125 mg Tab PO SCH ×2 (08:40→21:39)
[2016-12-16] MEDS: Hyoscyamine 0.125 mg SL Tab PO SCH ×2 (08:41→16:53)
--- NOTE | 2016-12-16 11:18 | CARD ---
APPROVED REPORT EXAM: Two-dimensional and M-mode echocardiogram with Doppler and color Doppler. Other Information Quality : GoodRhythm : NSR INDICATION Syncope 2D DIMENSIONS Left Atrium (2D)3.39 (1.6-4.0cm)IVSd1.37 (0.7-1.1cm) Aortic Root (2D)3.47 (2.0-3.7cm)LVDd3.64 (3.9-5.9cm) LVOT Diameter2.35 (1.8-2.4cm)PWd0.99 (0.7-1.1cm) IVSs1.41 (0.8-1.2cm)LVDs2.22 (2.5-4.0cm) FS (%) 38.8 %PWs1.14 (0.8-1.2cm) M-Mode DIMENSIONS Left Atrium (MM)3.20 (2.5-4.0cm)IVSd0.98 (0.7-1.1cm) Aortic Root3.03 (2.2-3.7cm)LVDd4.57 (4.0-5.6cm) Aortic Cusp Exc.1.65 (1.5-2.0cm)PWd0.97 (0.7-1.1cm) IVSs1.01 cmFS (%) 22 % LVDs3.58 (2.0-3.8cm)PWs1.45 cm Aortic Valve AI P 1/2 [id number] Mitral Valve MV E Xmwfiljl88.4cm/sMV DECEL [id number] A Sjpiskcs40.5cm/s MV ECC98ccX/A ratio0.8MVA (PHT)3.52cm2 TDI Lateral E' Peak V9.13cm/sMedial E' Peak V7.09cm/sE/Lateral E'6.6 E/Medial E'8.5 Pulmonary Valve PV Peak Tfhvmrba55.1cm/s Tricuspid Valve TR Peak Tawaqbxi987wn/sRAP [id number] Peak Gr.17mmHg [id number] LEFT VENTRICLE The left ventricle is normal in size. There is normal left ventricular wall thickness. The left ventricular function is normal. The left ventricular ejection fraction is - 55-60%. The apex and the apical one-third of the septal wall are mildly dyskinetic in some 2D apical 4 chamber views. The other segments of the left ventricle have good contraction. Transmitral Doppler flow pattern is Grade I-abnormal relaxation pattern. No left ventricle thrombus noted on this study. There is no ventricular septal defect visualized. There is no left ventricular aneurysm. There is no mass noted in the left ventricle. RIGHT VENTRICLE The right ventricle is normal size. There is normal right ventricular wall thickness. The right ventricular systolic function is normal. A pacemaker lead is seen in the RV. ATRIA The left atrium size is normal. There is no thrombus suspected in the left atrium. The right atrium is mildly dilated. A pacemaker lead is seen in the right atrium. The interatrial septum is intact with no evidence for an atrial septal defect. AORTIC VALVE The aortic valve is mildly thickened. There is mild aortic regurgitation. There is no aortic valvular stenosis. MITRAL VALVE The mitral valve is normal in structure and function. There is no evidence of mitral valve prolapse. There is no mitral valve stenosis. Mitral regurgitation is mild. TRICUSPID VALVE The tricuspid valve is normal in structure and function. There is mild to moderate tricuspid regurgitation. Right ventricular systolic pressure is estimated at 27 mmHg. There is no tricuspid valve prolapse or vegetation. There is no tricuspid valve stenosis. PULMONIC VALVE The pulmonic valve is not well visualized. There is no pulmonic valvular regurgitation. GREAT VESSELS The aortic root is normal in size. The IVC was not well visualized. PERICARDIAL EFFUSION The pericardium appears normal. There is no pleural effusion. <Conclusion> The left ventricle is normal in size and wall thickness. The overall left ventricular function is normal. The left ventricular ejection fraction is - 55-60%. The right atrium is mildly dilated. The aortic valve is mildly thickened but not stenotic and there is mild aortic regurgitation.. The mitral valve is normal and there is mild mitral regurgitation. The tricuspid valve is normal and there is mild to moderate tricuspid regurgitation.
--- NOTE | 2016-12-16 12:13 | CARD ---
APPROVED REPORT EKG Measurement Heart [id number] <Conclusion> AV dual-paced rhythm with prolonged AV conduction Abnormal ECG
--- NOTE | 2016-12-16 13:21 | CP.PCM.PN ---
Subjective - Date & Time of Evaluation Date of Evaluation: 12/16/16 Time of Evaluation: 08:05 - Subjective Subjective: patient seen and examined in telemetry this morning. Feels better, but still c/ o mild dizziness described as lightheadedness, denies Cp, SOB, N/V, abdominal pain, diarrheas. Afebrile, VS stable WNL. No event overnight. Objective - Vital Signs/Intake and Output Vital Signs (last 24 hours): Temp Pulse Resp BP Pulse Ox 98.1 F 66 18 144/70 98 12/16/16 12:12/16/16 12:12/16/16 12:12/16/16 12:12/16/16 12:09 - Medications Medications: Current Medications Amoxicillin/Clavulanate Potassium (Augmentin 875 Mg-125 Mg Tab) 1 tab PO Q12 [facility] Last Admin: 12/16/16 08:40 Dose: 1 tab Aspirin (Ecotrin) 81 mg PO DAILY [facility] Last Admin: 12/16/16 08:41 Dose: 81 mg Atorvastatin Calcium (Lipitor) 10 mg PO HS [facility] Benzocaine/Menthol (Cepacol Sore Throat) 1 clayton PO Q3 PRN PRN Reason: Sore Throat Last Admin: 12/15/16 21:30 Dose: 1 clayton Dextrose (Dextrose 50% Inj) 0 ml IV STAT PRN; Protocol PRN Reason: Hyglycemia Protocol Dextrose (Glutose 15) 0 gm PO ONCE PRN; Protocol PRN Reason: Hypoglycemia Protocol Glucagon (Glucagen Diagnostic Kit) 0 mg IM STAT PRN; Protocol PRN Reason: Hypoglycemia Protocol Hyoscyamine (Levsin) 0.125 mg PO BID [facility] Last Admin: 12/16/16 08:41 Dose: 0.125 mg Sodium Chloride (Sodium Chloride 0.9%) 500 mls @ 50 mls/hr IV .Q10H [facility] Stop: 12/16/16 15:00 Last Admin: 12/16/16 12:04 Dose: Not Given Insulin Human Regular (Humulin R) 0 units SC ACHS [facility] PRN Reason: Protocol Last Admin: 12/16/16 11:59 Dose: Not Given Levothyroxine Sodium (Synthroid) 50 mcg PO DAILY@0630 [facility] Last Admin: 12/16/16 06:34 Dose: 50 mcg Loratadine (Claritin) 10 mg PO DAILY PRN PRN Reason: Allergy symptoms Metoprolol Tartrate (Lopressor) 25 mg PO BID [facility] Last Admin: 12/16/16 08:41 Dose: 25 mg Sennosides (Senokot Tab) 8.6 mg PO HS [facility] Last Admin: 12/15/16 22:49 Dose: 8.6 mg Temazepam (Restoril) 30 mg PO HS [facility] Last Admin: 12/15/16 22:48 Dose: 30 mg Warfarin Sodium (Coumadin) 3 mg PO QD5 ONE PRN Reason: Protocol Stop: 12/16/16 17:01 - Labs Labs: 12/15/16 10:04 12/16/16 06:00 PT 19.6 Seconds (9.8-13.1) H 12/16/16 06:00 INR 1.9 (0.9-1.2) H 12/16/16 06:00 APTT 39.8 Seconds (25.6-37.1) H 12/15/16 10:04 - Constitutional Appears: No Acute Distress - ENT Exam ENT Exam: Mucous Membranes Moist - Respiratory Exam Respiratory Exam: Clear to Ausculation Bilateral, NORMAL BREATHING PATTERN - Cardiovascular Exam Cardiovascular Exam: REGULAR RHYTHM, +S1, +S2 - GI/Abdominal Exam GI & Abdominal Exam: Soft, Normal Bowel Sounds. absent: Distended, Guarding, Rigid, Tenderness - Extremities Exam Extremities Exam: Normal Inspection. absent: Calf Tenderness, Pedal Edema - Neurological Exam Neurological Exam: Alert, Awake, Oriented x3. absent: Motor Sensory Deficit Neuro motor strength exam: Left Upper Extremity: 5, Right Upper Extremity: 5, Left Lower Extremity: 5, Right Lower Extremity: 5 - Psychiatric Exam Psychiatric exam: Normal Affect, Normal Mood - Skin Skin Exam: Dry, Intact, Normal Color Assessment and Plan - Assessment and Plan (Free Text) Assessment: 86yo M with extensive PMHx CAD, CHF, Afib, pacemaker, HTN, HLD, DM, hypothyroidism admitted for syncope. Plan: Syncope with h/o extensive cardiac comorbidites -consider vasovagal, chronic sinusitis, dehydration -Orthostatic BP done on 12/15/16 negative -ECHO: LV function normal, EF:55-60 % -CTA head/neck was read as unremarkable -neuro on board, f/u recommendations Chronic sinusitis -CT head, chronic sinusitis -c/w augmentin CAD chronic, asymptomatic -c/w ASA CHF chronic, no exacerbation -c/w Metoprolol -ECHO: LV function normal, EF:55-60 % Chronic A fib (s/p pacemaker) -INR 1.9 -f/u AM INR -resume Coumadin 3 mg PO daily ( home dose) HLD -c/w statin -lipid panel normal DM type 2 -hold prandin. Consider decrease dose or frequency vs DC med -HgbA1c on 12/15/16 6.7. adequate for his age -SSI -accuchecks Hypothyroidism -TFTs, elevated TSH -c/w synthroid 50 mcg PO DVT ppx -on coumadin
[2016-12-16] MEDS: Benzocaine/Menthol (Cepacol) Lozenge PO PRN (20:16)
[2016-12-17] MEDS: Levothyroxine 50 MCG TAB PO SCH (06:14)
[2016-12-17 06:56] LABS: HEMATOCRIT 42.2 % (35.0-51.0); MEAN CELL VOLUME 88.2 fl (80.0-94.0); MEAN CORPUSCULAR HEMOGLOBIN 29.1 pg (27.0-31.0); WHITE BLOOD COUNT 7.1 K/uL (4.8-10.8)
[2016-12-17 07:02] LABS: BLOOD UREA NITROGEN 25 mg/dl (9-20); CALCIUM 9.1 mg/dL (8.4-10.2); CARBON DIOXIDE 27 mmol/L (22-30); CHLORIDE 103 mmol/L (98-107); GFR AFRICAN-AMERICAN > 60; GLUCOSE,RANDOM 90 mg/dL (75-110); POTASSIUM 4.7 MMOL/L (3.6-5.0); SODIUM 142 mmol/l (132-148)
[2016-12-17] MEDS: Insulin Regular 100 units/ml SC SCH ×4 (07:40→21:40)
[2016-12-17 08:07] LABS: PARTIAL THROMBOPLASTIN TIME 40.4 Seconds (25.6-37.1)
[2016-12-17] MEDS: Amoxicillin-Clav 875-125 mg Tab PO SCH ×2 (08:53→21:39)
[2016-12-17] MEDS: Benzocaine/Menthol (Cepacol) Lozenge PO PRN ×3 (08:53→19:41)
[2016-12-17] MEDS: Hyoscyamine 0.125 mg SL Tab PO SCH (08:53)
--- NOTE | 2016-12-17 10:00 | CP.PCM.PN ---
Subjective - Date & Time of Evaluation Date of Evaluation: 12/17/16 Time of Evaluation: 08:00 - Subjective Subjective: CC: admitted for syncope/vasovagal episode Patient seen and examined in telemetry this morning. Feels better, ambulating without assistance, denies Cp, SOB, N/V, abdominal pain, diarrheas. Afebrile, VS stable WNL. Objective - Vital Signs/Intake and Output Vital Signs (last 24 hours): Temp Pulse Resp BP Pulse Ox 97.6 F 63 16 116/65 98 12/17/16 05:00 12/17/16 08:54 12/17/16 05:00 12/17/16 08:54 12/17/16 05:00 - Medications Medications: Current Medications Amoxicillin/Clavulanate Potassium (Augmentin 875 Mg-125 Mg Tab) 1 tab PO Q12 [facility] Last Admin: 12/17/16 08:53 Dose: 1 tab Aspirin (Ecotrin) 81 mg PO DAILY [facility] Last Admin: 12/17/16 08:54 Dose: 81 mg Atorvastatin Calcium (Lipitor) 10 mg PO HS [facility] Last Admin: 12/16/16 21:39 Dose: 10 mg Benzocaine/Menthol (Cepacol Sore Throat) 1 clayton PO Q3 PRN PRN Reason: Sore Throat Last Admin: 12/17/16 08:53 Dose: 1 clayton Dextrose (Dextrose 50% Inj) 0 ml IV STAT PRN; Protocol PRN Reason: Hyglycemia Protocol Dextrose (Glutose 15) 0 gm PO ONCE PRN; Protocol PRN Reason: Hypoglycemia Protocol Glucagon (Glucagen Diagnostic Kit) 0 mg IM STAT PRN; Protocol PRN Reason: Hypoglycemia Protocol Hyoscyamine (Levsin) 0.125 mg PO BID [facility] Last Admin: 12/17/16 08:53 Dose: 0.125 mg Insulin Human Regular (Humulin R) 0 units SC ACHS [facility] PRN Reason: Protocol Last Admin: 12/17/16 07:40 Dose: Not Given Levothyroxine Sodium (Synthroid) 50 mcg PO DAILY@0630 [facility] Last Admin: 12/17/16 06:14 Dose: 50 mcg Loratadine (Claritin) 10 mg PO DAILY PRN PRN Reason: Allergy symptoms Last Admin: 12/17/16 08:54 Dose: 10 mg Metoprolol Tartrate (Lopressor) 25 mg PO BID [facility] Last Admin: 12/17/16 08:54 Dose: 25 mg Sennosides (Senokot Tab) 8.6 mg PO HS [facility] Last Admin: 12/16/16 21:40 Dose: 8.6 mg Temazepam (Restoril) 30 mg PO HS [facility] Last Admin: 12/16/16 21:39 Dose: 30 mg - Labs Labs: 12/17/16 05:30 12/17/16 05:30 PT 18.8 Seconds (9.8-13.1) H 12/17/16 05:30 INR 1.8 (0.9-1.2) H 12/17/16 05:30 APTT 40.4 Seconds (25.6-37.1) H 12/17/16 05:30 - Constitutional Appears: Non-toxic, No Acute Distress - Eye Exam Eye Exam: EOMI Pupil Exam: PERRL - ENT Exam ENT Exam: Mucous Membranes Moist - Neck Exam Neck Exam: Full ROM - Respiratory Exam Respiratory Exam: Clear to Ausculation Bilateral - Cardiovascular Exam Cardiovascular Exam: +S1, +S2 - GI/Abdominal Exam GI & Abdominal Exam: Soft. absent: Tenderness - Extremities Exam Extremities Exam: absent: Pedal Edema, Tenderness - Neurological Exam Neurological Exam: Alert, Awake, Oriented x3 - Skin Skin Exam: Dry, Normal Color, Warm Assessment and Plan - Assessment and Plan (Free Text) Plan: 86yo M with extensive PMHx CAD, CHF, Afib, pacemaker, HTN, HLD, DM, hypothyroidism admitted for syncope. Syncope with h/o extensive cardiac comorbidites -consider vasovagal, chronic sinusitis, dehydration -Orthostatic BP done on 12/15/16 negative -ECHO: LV function normal, EF:55-60 % -CTA head/neck was read as unremarkable -neuro on board, f/u recommendations - PT eval and treat Chronic A fib (s/p pacemaker) - INR 1.8 - subtherapeutic due to missed warfarin doses - f/u AM INR - resume Coumadin 3 mg PO daily ( home dose) - given one dose of therapeutic lovenox (1mg/kg) - Cr.Cl: 33 Chronic sinusitis -CT head, chronic sinusitis -c/w augmentin CAD chronic, asymptomatic -c/w ASA CHF chronic, no exacerbation -c/w Metoprolol -ECHO: LV function normal, EF:55-60 % HLD -c/w statin -lipid panel normal DM type 2 -hold prandin. Consider decrease dose or frequency vs DC med -HgbA1c on 12/15/16 6.7. adequate for his age -SSI -accuchecks Hypothyroidism -TFTs, elevated TSH -c/w synthroid 50 mcg PO DVT ppx -on coumadin
[2016-12-17] MEDS ORDERED: Enoxaparin 60 mg Syringe SC STA (10:20)
[2016-12-18 05:23] LABS: HEMATOCRIT 42.1 % (35.0-51.0); MEAN CELL VOLUME 88.8 fl (80.0-94.0); MEAN CORPUSCULAR HEMOGLOBIN 29.1 pg (27.0-31.0); MEAN CORPUSCULAR HGB CONC 32.7 g/dL (33.0-37.0); RED CELL DISTRIBUTION WIDTH 15.2 % (11.5-14.5); WHITE BLOOD COUNT 8.4 K/uL (4.8-10.8)
[2016-12-18 05:39] LABS: ALB/GLOB RATIO 1.1 (1.0-2.1); ALKALINE PHOSPHATASE 96 U/L (38-126); ALT/SGPT 32 U/L (21-72); AST/SGOT 33 U/L (17-59); BLOOD UREA NITROGEN 25 mg/dl (9-20); CALCIUM 8.9 mg/dL (8.4-10.2); CARBON DIOXIDE 27 mmol/L (22-30); CHLORIDE 103 mmol/L (98-107); GFR AFRICAN-AMERICAN > 60; GLUCOSE,RANDOM 105 mg/dL (75-110); POTASSIUM 4.5 MMOL/L (3.6-5.0); SODIUM 144 mmol/l (132-148)
[2016-12-18] MEDS: Levothyroxine 50 MCG TAB PO SCH (06:26)
[2016-12-18] MEDS: Insulin Regular 100 units/ml SC SCH ×3 (06:32→16:22)
[2016-12-18 07:51] VITALS: RESP 18
[2016-12-18 08:31] LABS: T4 5.17 ug/dl (5.5-11.0)
[2016-12-18] MEDS: Amoxicillin-Clav 875-125 mg Tab PO SCH (09:27)
[2016-12-18] MEDS: Benzocaine/Menthol (Cepacol) Lozenge PO PRN (09:28)
--- NOTE | 2016-12-18 10:27 | CP.PCM.PN ---
Subjective - Date & Time of Evaluation Date of Evaluation: 12/18/16 Objective - Vital Signs/Intake and Output Vital Signs (last 24 hours): Temp Pulse Resp BP Pulse Ox 97.8 F 63 18 115/70 97 12/18/16 09:00 12/18/16 09:28 12/18/16 09:00 12/18/16 09:28 12/18/16 09:00 - Medications Medications: Current Medications Amoxicillin/Clavulanate Potassium (Augmentin 875 Mg-125 Mg Tab) 1 tab PO Q12 [facility] Last Admin: 12/18/16 09:27 Dose: 1 tab Aspirin (Ecotrin) 81 mg PO DAILY [facility] Last Admin: 12/18/16 09:28 Dose: 81 mg Atorvastatin Calcium (Lipitor) 10 mg PO HS [facility] Last Admin: 12/17/16 21:39 Dose: 10 mg Benzocaine/Menthol (Cepacol Sore Throat) 1 clayton PO Q3 PRN PRN Reason: Sore Throat Last Admin: 12/18/16 09:28 Dose: 1 clayton Dextrose (Dextrose 50% Inj) 0 ml IV STAT PRN; Protocol PRN Reason: Hyglycemia Protocol Dextrose (Glutose 15) 0 gm PO ONCE PRN; Protocol PRN Reason: Hypoglycemia Protocol Glucagon (Glucagen Diagnostic Kit) 0 mg IM STAT PRN; Protocol PRN Reason: Hypoglycemia Protocol Insulin Human Regular (Humulin R) 0 units SC [facility] PRN Reason: Protocol Last Admin: 12/18/16 06:32 Dose: Not Given Levothyroxine Sodium (Synthroid) 50 mcg PO DAILY@0630 [facility] Last Admin: 12/18/16 06:26 Dose: 50 mcg Metoprolol Tartrate (Lopressor) 25 mg PO BID [facility] Last Admin: 12/18/16 09:28 Dose: 25 mg Sennosides (Senokot Tab) 8.6 mg PO HS [facility] Last Admin: 12/17/16 21:39 Dose: 8.6 mg - Labs Labs: 12/18/16 04:15 12/18/16 04:15 PT 18.5 Seconds (9.8-13.1) H 12/18/16 04:15 INR 1.8 (0.9-1.2) H 12/18/16 04:15 APTT 40.4 Seconds (25.6-37.1) H 12/17/16 05:30 - Constitutional Appears: Well, No Acute Distress - Eye Exam Eye Exam: EOMI, Normal appearance - Neck Exam Neck Exam: Full ROM - Respiratory Exam Respiratory Exam: Clear to Ausculation Bilateral, NORMAL BREATHING PATTERN - Cardiovascular Exam Cardiovascular Exam: REGULAR RHYTHM, +S1, +S2 - GI/Abdominal Exam GI & Abdominal Exam: Soft, Normal Bowel Sounds - Psychiatric Exam Psychiatric exam: Normal Affect, Normal Mood - Additional Findings Additional findings: Tele monitor 10:00 Pace Rhythm 60bpm.
--- NOTE | 2016-12-18 12:29 | PQF GENQUE ---
Dr. Farias, Please specify the type of heart failure in your progress notes: Combined systolic and diastolic Diastolic Systolic Other (please specify) Clinically unable to determine Unknown 12/17: Residents progress note: CHF chronic, no exacerbation -c/w Metoprolol -ECHO: LV function normal, EF:55-60 % This form is a permanent part of the medical record Clarification of your documentation is requested to better reflect the severity of illness and intensity of treatment of your patient. Indicators present [] Specify: [] [] Specify: [] [] Specify: [] [] Specify: [] Location in the medical record that reflects the above clinical findings: [] Treatment Provided: [] PHYSICIAN'S RESPONSE Based on your medical judgment of the clinical indicators outlined above please clarify the following: [] Practitioner response [] If unable to determine, please check the box, sign and date. Present On Admission (POA) Indicator: [] Present at the time of admission [] Not present at the time of admission [] Clinically Undetermined In responding to this query, please exercise your independent professional judgment. The fact that a question is asked does not imply that any particular answer is desired or expected. Thank you for your clarification on this documentation. If you have any questions please call. * Thank you, Payton Gleason RN ext. #[phone]: Nicole Fisher RN MTDD
--- NOTE | 2016-12-18 12:35 | CP.PCM.PN ---
Subjective - Date & Time of Evaluation Date of Evaluation: 12/18/16 Time of Evaluation: 12:32 - Subjective Subjective: Mr. Sarmiento was seen and examined at the bedside using a telephone grubber with wet machine operator ID [id number]. He denies any headache, very minimal dizziness on and off. at present denies dizziness, lightheadedness, weakness, numbness, nausea, or vomiting. He is not in any kind of distress. There was no untoward events overnight. Objective - Vital Signs/Intake and Output Vital Signs (last 24 hours): Temp Pulse Resp BP Pulse Ox 98 F 62 18 122/67 99 12/18/16 12:18 12/18/16 12:18 12/18/16 12:18 12/18/16 12:18 12/18/16 12:18 - Medications Medications: Current Medications Amoxicillin/Clavulanate Potassium (Augmentin 875 Mg-125 Mg Tab) 1 tab PO Q12 [facility] Last Admin: 12/18/16 09:27 Dose: 1 tab Aspirin (Ecotrin) 81 mg PO DAILY [facility] Last Admin: 12/18/16 09:28 Dose: 81 mg Atorvastatin Calcium (Lipitor) 10 mg PO HS [facility] Last Admin: 12/17/16 21:39 Dose: 10 mg Benzocaine/Menthol (Cepacol Sore Throat) 1 clayton PO Q3 PRN PRN Reason: Sore Throat Last Admin: 12/18/16 09:28 Dose: 1 clayton Dextrose (Dextrose 50% Inj) 0 ml IV STAT PRN; Protocol PRN Reason: Hyglycemia Protocol Dextrose (Glutose 15) 0 gm PO ONCE PRN; Protocol PRN Reason: Hypoglycemia Protocol Glucagon (Glucagen Diagnostic Kit) 0 mg IM STAT PRN; Protocol PRN Reason: Hypoglycemia Protocol Insulin Human Regular (Humulin R) 0 units SC ACHS [facility] PRN Reason: Protocol Last Admin: 12/18/16 06:32 Dose: Not Given Levothyroxine Sodium (Synthroid) 50 mcg PO DAILY@0630 [facility] Last Admin: 12/18/16 06:26 Dose: 50 mcg Metoprolol Tartrate (Lopressor) 25 mg PO BID [facility] Last Admin: 12/18/16 09:28 Dose: 25 mg Sennosides (Senokot Tab) 8.6 mg PO HS [facility] Last Admin: 12/17/16 21:39 Dose: 8.6 mg - Labs Labs: 12/18/16 04:15 12/18/16 04:15 PT 18.5 Seconds (9.8-13.1) H 12/18/16 04:15 INR 1.8 (0.9-1.2) H 12/18/16 04:15 APTT 40.4 Seconds (25.6-37.1) H 12/17/16 05:30 - Constitutional Appears: Well - Head Exam Head Exam: ATRAUMATIC, NORMAL INSPECTION, NORMOCEPHALIC - Neurological Exam Neurological Exam: Alert, Awake, CN II-XII Intact, Normal Gait, Oriented x3 Neuro motor strength exam: Left Upper Extremity: 5, Right Upper Extremity: 5, Left Lower Extremity: 5, Right Lower Extremity: 5 Additional comments: Neurological unchanged from previous examination Assessment and Plan (1) Syncope and collapse Assessment & Plan: Case discussed with Dr. Ambrocio, will continue current medical, physical therapies. No new recommendation from neurology. Status: Acute
--- NOTE | 2016-12-18 13:06 | CP.PCM.PCO ---
Additional Comments - Additional Comments Additional Comments: DC home with PMD follow up in 1-2 days Patient to follow up with Cardiology Dr Shelley for further management of A fib , CAD, s/p pacemaker Following meds were discontinued: warfarin ( per patient's night court magistrate), prandin, restoril and hyocyamine Patient's pharmacy was called and these new medication changes were communicated Take all medication as directed
--- NOTE | 2016-12-18 13:22 | CP.PCM.DIS ---
Addendum entered and electronically signed by Justen Lazo MD 12/22/16 11:18: Correction to note below: CHF: chronic diastolic; Addendum entered and electronically signed by Justen Lazo MD 12/20/16 14:14: acute CHF: systolic based on Echo finding; Present at time of admission. Addendum entered and electronically signed by Justen Lazo MD 12/19/16 12:43: Pt BMI 17.2 kg/m2: underweight; unclear etiology Justen Lazo, PGY1 Original Note: Provider - Provider Date of Admission: 12/15/16 11:56 Attending physician: Ivette Farias MD Time Spent in preparation of Discharge (in minutes): 20 Hospital Course - Lab Results Lab Results: Micro Results 12/15/16 10:35 Blood-Venous Blood Culture - Preliminary NO GROWTH AFTER 3 DAYS 12/15/16 10:04 Blood-Venous Blood Culture - Preliminary NO GROWTH AFTER 3 DAYS 12/15/16 11:00 Throat Group A Strep Throat Culture - Final NO BETA STREP GROUP A ISOLATED. Most Recent Lab Values WBC 8.4 K/uL (4.8-10.8) 12/18/16 04:15 RBC 4.73 Mil/uL (4.40-5.90) 12/18/16 04:15 Hgb 13.8 g/dL (12.0-18.0) 12/18/16 04:15 Hct 42.1 % (35.0-51.0) 12/18/16 04:15 MCV 88.8 fl (80.0-94.0) 12/18/16 04:15 MCH 29.1 pg (27.0-31.0) 12/18/16 04:15 MCHC 32.7 g/dL (33.0-37.0) L 12/18/16 04:15 RDW 15.2 % (11.5-14.5) H 12/18/16 04:15 Plt Count 163 K/uL (130-400) 12/18/16 04:15 MPV 9.2 fl (7.2-11.7) 12/15/16 10:04 Neut % (Auto) 74.3 % (50.0-75.0) 12/15/16 10:04 Lymph % (Auto) 12.6 % (20.0-40.0) L 12/15/16 10:04 [place] % (Auto) 11.0 % (0.0-10.0) H 12/15/16 10:04 Eos % (Auto) 1.5 % (0.0-4.0) 12/15/16 10:04 Baso % (Auto) 0.6 % (0.0-2.0) 12/15/16 10:04 Neut # 4.6 K/uL (1.8-7.0) 12/15/16 10:04 Lymph # 0.8 K/uL (1.0-4.3) L 12/15/16 10:04 [place] # 0.7 K/uL (0.0-0.8) 12/15/16 10:04 Eos # 0.1 K/uL (0.0-0.7) 12/15/16 10:04 Baso # 0.0 K/uL (0.0-0.2) 12/15/16 10:04 PT 18.5 Seconds (9.8-13.1) H 12/18/16 04:15 INR 1.8 (0.9-1.2) H 12/18/16 04:15 APTT 40.4 Seconds (25.6-37.1) H 12/17/16 05:30 pO2 13 mm/Hg (30-55) L 12/15/16 10:15 VBG pH 7.39 (7.32-7.43) 12/15/16 10:15 VBG pCO2 53 mmHg (40-60) 12/15/16 10:15 VBG HCO3 27.1 mmol/L 12/15/16 10:15 VBG Total CO2 33.7 mmol/L (22-28) H 12/15/16 10:15 VBG O2 Sat (Calc) 17.1 % (40-65) L 12/15/16 10:15 VBG Base Excess 5.7 mmol/L (0.0-2.0) H 12/15/16 10:15 VBG Potassium 5.1 mmol/L (3.6-5.2) 12/15/16 10:15 Sodium 140.0 mmol/L (132-148) 12/15/16 10:15 Chloride 104.0 mmol/L (98-107) 12/15/16 10:15 Glucose 115 mg/dL (75-110) H 12/15/16 10:15 Lactate 2.1 mmol/L (0.7-2.1) 12/15/16 10:15 FiO2 21.0 % 12/15/16 10:15 Sodium 144 mmol/l (132-148) 12/18/16 04:15 Potassium 4.5 MMOL/L (3.6-5.0) 12/18/16 04:15 Chloride 103 mmol/L (98-107) 12/18/16 04:15 Carbon Dioxide 27 mmol/L (22-30) 12/18/16 04:15 Anion Gap 19 (10-20) 12/18/16 04:15 BUN 25 mg/dl (9-20) H 12/18/16 04:15 Creatinine 1.1 mg/dL (0.8-1.5) 12/18/16 04:15 Est GFR ( Amer) > 60 12/18/16 04:15 Est GFR (Non-Af Amer) > 60 12/18/16 04:15 POC Glucose (mg/dL) 124 mg/dL (65-110) H 12/18/16 11:51 Random Glucose 105 mg/dL (75-110) 12/18/16 04:15 Hemoglobin A1c 6.7 % (4.2-6.5) H 12/15/16 10:00 Calcium 8.9 mg/dL (8.4-10.2) 12/18/16 04:15 Total Bilirubin 1.0 mg/dl (0.2-1.3) 12/18/16 04:15 AST 33 U/L (17-59) 12/18/16 04:15 ALT 32 U/L (21-72) 12/18/16 04:15 Alkaline Phosphatase 96 U/L (38-126) 12/18/16 04:15 Troponin I < 0.0120 ng/mL (0.00-0.120) 12/15/16 10:04 Total Protein 7.0 G/DL (6.3-8.2) 12/18/16 04:15 Albumin 3.8 g/dL (3.5-5.0) 12/18/16 04:15 Globulin 3.3 gm/dL (2.2-3.9) 12/18/16 04:15 Albumin/Globulin Ratio 1.1 (1.0-2.1) 12/18/16 04:15 Triglycerides Cancelled 12/15/16 12:29 Cholesterol Cancelled 12/15/16 12:29 LDL Cholesterol Direct Cancelled 12/15/16 12:29 HDL Cholesterol Cancelled 12/15/16 12:29 Vitamin B12 Cancelled 12/15/16 12:29 Thyroxine (T4) 5.17 ug/dl (5.5-11.0) L 12/15/16 10:04 TSH 3rd Generation 16.50 mIU/ML (0.46-4.68) H 12/17/16 13:20 Venous Blood Potassium 5.1 mmol/L (3.6-5.2) 12/15/16 10:15 Urine Color Straw (YELLOW) 12/15/16 11:50 Urine Clarity Clear (Clear) 12/15/16 11:50 Urine pH 7.0 (5.0-8.0) 12/15/16 11:50 Ur Specific [place] 1.010 (1.003-1.030) 12/15/16 11:50 Urine Protein Negative mg/dL (NEGATIVE) 12/15/16 11:50 Urine Glucose (UA) Neg mg/dL (Normal) 12/15/16 11:50 Urine Ketones Negative mg/dL (NEGATIVE) 12/15/16 11:50 Urine Blood Negative (NEGATIVE) 12/15/16 11:50 Urine Nitrate Negative (NEGATIVE) 12/15/16 11:50 Urine Bilirubin Negative (NEGATIVE) 12/15/16 11:50 Urine Urobilinogen 0.2-1.0 mg/dL (0.2-1.0) 12/15/16 11:50 Ur Leukocyte Esterase Neg April/uL (Negative) 12/15/16 11:50 Urine RBC (Auto) 1 /hpf (0-3) 12/15/16 11:50 Urine Microscopic WBC < 1 /hpf (0-5) 12/15/16 11:50 Urine Bacteria Rare (<OCC) 12/15/16 11:50 Grp A Beta Strep Ag Negative (NEGATIVE) 12/15/16 09:52 - Hospital Course Hospital Course: Maynor Sarmiento is an 86 yo male with pmhx of CAD, CHF, Afib, HTN, DM, pacemaker , hypothyroid, and chronic sinusitis who presented with a syncopal episode possibly vasovagal in nature; ECHO: LV norm and EF 55-60% CT head and neck: unremarkable Pt shares of improved symptoms of dizziness; He is able to ambulate freely, however, with caution. Denies SOB, cough, n/v. Per patient, his son was also instructed by Dr. Shelley for him to discontinue Warfarin for [address] Carmen (PCP) about his medical history. Called his Pharmacy to verify his medications; They stated that last fill for warfarin was 10/16. Discontinued benzos, prandine, hyosyamine, warfarin as per slab conditioner supervisor. HbA1c 6.7 on 12/15/2016 Neurology consult: cleared Pt to follow upwith cardio op Medication reconciliation for him and review with his son ([phone]) on discharge. Justen Lazo, PGY1 Discharge Exam - Head Exam Head Exam: ATRAUMATIC, NORMAL INSPECTION, NORMOCEPHALIC - Eye Exam Eye Exam: EOMI, Normal appearance - Respiratory Exam Respiratory Exam: NORMAL BREATHING PATTERN - Cardiovascular Exam Cardiovascular Exam: REGULAR RHYTHM - GI/Abdominal Exam GI & Abdominal Exam: Normal Bowel Sounds, Soft Discharge Plan - Discharge Medications Prescriptions: Amoxicillin/Clavulanate [Augmentin 875 MG-125 MG Tab] 1 tab PO Q12 4 Days tab Aspirin [Ecotrin] 81 mg PO DAILY #30 tabec Atorvastatin [Lipitor] 10 mg PO HS #30 tab Metoprolol Tartrate [Lopressor] 25 mg PO DAILY #30 tab - Follow Up Plan Condition: STABLE Disposition: HOME/ ROUTINE Additional Instructions: DC home with PMD follow up in 1-2 days Patient to follow up with Cardiology Dr Shelley for further management of A fib , CAD, s/p pacemaker Following meds were discontinued: warfarin ( per patient's slab conditioner supervisor), prandin, restoril and hyocyamine Patient's pharmacy was called and these new medication changes were communicated Take all medication as directed Referrals: Stoney Shelley MD [Staff Provider] - Lucio Carmen MD [Family Provider] -
--- NOTE | 2016-12-18 13:33 | PQF GENQUE ---
Dr. Farias, Is there an associated dx. to go along with the BMI: 17.2 ; listed in the RD note? OR: Disagree OR: Other explanation of clinical finding RD consult: 5ft 7in : [address] note: BMI 17.2: Classification: Underweight; pt.reported unexplained weight loss TUBE ROOM CASHIER: monitor po intake, pertinent labs etc. Pureed Dysphagia diet This form is a permanent part of the medical record Clarification of your documentation is requested to better reflect the severity of illness and intensity of treatment of your patient. Indicators present [] Specify: [] [] Specify: [] [] Specify: [] [] Specify: [] Location in the medical record that reflects the above clinical findings: [] Treatment Provided: [] PHYSICIAN'S RESPONSE Based on your medical judgment of the clinical indicators outlined above please clarify the following: [] Practitioner response [] If unable to determine, please check the box, sign and date. Present On Admission (POA) Indicator: [] Present at the time of admission [] Not present at the time of admission [] Clinically Undetermined In responding to this query, please exercise your independent professional judgment. The fact that a question is asked does not imply that any particular answer is desired or expected. Thank you for your clarification on this documentation. If you have any questions please call. * Thank you, Payton Gleason RN ext. #[phone]: Nicole Fisher RN MTDD
[2016-12-18 15:45] VITALS: BP 114/61; PULSE 64; TEMP 97.5; O2SAT 97
== END 2016-12-18 16:35 | DRG 312 ==
LOC: H.ER 08:45 → H.ERHOLD 11:56 → H.TEL 15:25
PROVIDERS: ADMIT Family Medicine Geriatric Medicine; ATTEND Family Medicine Geriatric Medicine
PROC: 3E0234Z Introduction of Serum, Toxoid and Vaccine into Muscle, Percutaneous Approach (ICD-10-PCS; principal; 2016-12-15)
DX: R55 Syncope and collapse (principal); I48.2 Chronic atrial fibrillation; I50.32 Chronic diastolic (congestive) heart failure; I11.0 Hypertensive heart disease with heart failure; E11.9 Type 2 diabetes mellitus without complications; J32.0 Chronic maxillary sinusitis; Z68.1 Body mass index [BMI] 19.9 or less, adult; E03.9 Hypothyroidism, unspecified; Z79.01 Long term (current) use of anticoagulants; Z23 Encounter for immunization; I25.10 Atherosclerotic heart disease of native coronary artery without angina pectoris; Z95.1 Presence of aortocoronary bypass graft; Z95.0 Presence of cardiac pacemaker; R07.0 Pain in throat; E78.5 Hyperlipidemia, unspecified; K29.70 Gastritis, unspecified, without bleeding; Z91.14 Patient's other noncompliance with medication regimen; M19.90 Unspecified osteoarthritis, unspecified site; H91.90 Unspecified hearing loss, unspecified ear; R63.6 Underweight

== ENCOUNTER 2017-06-15 08:54 | Day surgery (SDC) | payer MEDICARE, MEDICAID ==
[2017-06-15 10:05] VITALS: BMI 17.7
[2017-06-15] MEDS ORDERED: Lactated Ringer's 500 ML IV ONE (10:12)
[2017-06-15 10:33] VITALS: TEMP 96.8; O2SAT 100
[2017-06-15] MEDS ORDERED: Propofol 10 mg/ml Inj (20 ML) ONE (11:23)
[2017-06-15 11:57] VITALS: BP 116/65; PULSE 60; RESP 16
== END 2017-06-15 13:22 | disposition home or self-care (01) ==
LOC: H.ENDO 08:54
PROVIDERS: ATTEND Internal Medicine Gastroenterology
DX: K21.9 Gastro-esophageal reflux disease without esophagitis (principal); K29.50 Unspecified chronic gastritis without bleeding; I25.10 Atherosclerotic heart disease of native coronary artery without angina pectoris; I10 Essential (primary) hypertension; E03.9 Hypothyroidism, unspecified; K31.9 Disease of stomach and duodenum, unspecified; K30 Functional dyspepsia
CPT/HCPCS: 43239; 82948; 88305; J2704; J7120

== ENCOUNTER 2017-07-19 17:09 | Emergency (ER) | payer MEDICARE, MEDICAID ==
[2017-07-19 17:09] VITALS: BMI 17.7
[2017-07-19] MEDS ORDERED: Iohexol 240 (50 ml) PO ONE (17:40)
[2017-07-19] MEDS ORDERED: Sodium Chloride 0.9% 1,000 ML IV STA (17:40)
--- NOTE | 2017-07-19 17:46 | ED PDOC ---
HPI: Abdomen Time Seen by Provider: 07/19/17 17:19 Chief Complaint (Nursing): Abdominal Pain Chief Complaint (Provider): Abd pain History Per: Patient History/Exam Limitations: no limitations Onset/Duration Of Symptoms: Days (yesterday) Additional Complaint(s): Pt. with abd pain, like constipation. Had same pain last week and got better. Seen by clinic today and told to come to the ER. Pt. also with dizziness. No chest pain, dyspnea, weakness, headches, neck pain. No numbness, tingles. No back pain. Takes his multiple meds and sometimes help move stool. PCP: [facility]. Past Medical History Reviewed: Nursing Documentation, Vital Signs Vital Signs: Last Vital Signs Temp 97.9 F 07/19/17 17:13 Pulse 72 07/19/17 17:13 Resp 16 07/19/17 17:13 BP 126/74 07/19/17 17:13 Pulse Ox 98 07/19/17 17:46 - Medical History PMH: Anxiety, Arthritis, Atrial Fibrillation, CAD, Cardia Arrhythmia, CHF, Depression, Diabetes, HTN, Hypercholesterolemia, Hypothyroidism Denies: HIV, Chronic Kidney Disease - Surgical History Surgical History: CABG, Pacemaker - Family History Family History: States: Unknown Family Hx - Home Medications Home Medications: Ambulatory Orders Medication Instructions Recorded Clopidogrel [Plavix] 75 mg PO BID 06/15/17 Levothyroxine Sodium [Levoxyl] 50 mcg PO DAILY 06/15/17 Metoprolol Succinate [Toprol XL] 50 mg PO DAILY 06/15/17 Omeprazole [Omeprazole] 20 mg PO DAILY 06/15/17 Repaglinide [Prandin] 0.5 mg PO DAILY 06/15/17 Tamsulosin [Flomax] 0.4 mg PO DAILY 06/15/17 Temazepam [Restoril] 30 mg PO DAILY 06/15/17 - Allergies Allergies/Adverse Reactions: Allergies Allergy/AdvReac Type Severity Reaction Status Date / Time No Known Allergies Allergy Verified 07/19/17 17:13 Review of Systems ROS Statement: Except As Marked, All Systems Reviewed And Found Negative Gastrointestinal: Positive for: Abdominal Pain Neurological: Positive for: Dizziness Physical Exam - Reviewed Nursing Documentation Reviewed: Yes Vital Signs Reviewed: Yes - Physical Exam Appears: Positive for: Non-toxic, No Acute Distress Head Exam: Positive for: ATRAUMATIC, NORMAL INSPECTION, NORMOCEPHALIC Skin: Positive for: Normal Color, Warm, DRY Eye Exam: Positive for: EOMI, Normal appearance, PERRL ENT: Positive for: Normal ENT Inspection. Negative for: Nasal Congestion Neck: Positive for: Normal, Painless ROM, Supple Cardiovascular/Chest: Positive for: Regular Rate, Rhythm Respiratory: Positive for: CNT, Normal Breath Sounds Gastrointestinal/Abdominal: Positive for: Soft, Tenderness (mild diffuse) Back: Positive for: Normal Inspection. Negative for: L CVA Tenderness, R CVA Tenderness Extremity: Positive for: Normal ROM. Negative for: Tenderness, Pedal Edema Neurologic/Psych: Positive for: Alert, stock parts inspector II-XII, Oriented. Negative for: Motor/Sensory Deficits, Facial Droop - ECG O2 Sat by Pulse Oximetry: 98 Pulse Ox Interpretation: Normal - Progress ED Course And Treament: 1833: Stable. AAOx3. Dr. Dye to take over care. Disposition - Clinical Impression Clinical Impression: Abdominal discomfort - Patient ED Disposition Is Patient to be Admitted: Transfer of Care - Disposition Disposition Time: 18:34 Condition: STABLE Patient Signed Over To: Dominic Dye
[2017-07-19] MEDS ORDERED: Iohexol 240 (50 ml) ONE (18:44)
[2017-07-19 18:47] LABS: BASO # 0.1 K/uL (0.0-0.2); BASO % 1.1 % (0.0-2.0); EOS # 0.1 K/uL (0.0-0.7); EOS % 2.2 % (0.0-4.0); HEMOGLOBIN 12.8 g/dL (12.0-18.0); LYMPH # 1.3 K/uL (1.0-4.3); LYMPH % 21.3 % (20.0-40.0); MEAN CORPUSCULAR HEMOGLOBIN 29.8 pg (27.0-31.0); MEAN CORPUSCULAR HGB CONC 33.5 g/dL (33.0-37.0); MEAN PLATELET VOLUME 9.5 fl (7.2-11.7); MONO # 0.8 K/uL (0.0-0.8); NEUT # 3.7 K/uL (1.8-7.0); NEUT % 61.4 % (50.0-75.0); RBC 4.29 Mil/uL (4.40-5.90); RED CELL DISTRIBUTION WIDTH 15.2 % (11.5-14.5)
[2017-07-19 19:12] LABS: ALB/GLOB RATIO 1.1 (1.0-2.1); ALBUMIN 3.8 g/dL (3.5-5.0); ALT/SGPT 42 U/L (21-72); AST/SGOT 33 U/L (17-59); BLOOD UREA NITROGEN 24 mg/dl (9-20); CALCIUM 8.9 mg/dL (8.4-10.2); GFR AFRICAN-AMERICAN > 60; GFR NON-AFRICAN AMERICAN 57
[2017-07-19] MEDS ORDERED: Iohexol 300 100 ML IJ ONE (21:23)
[2017-07-19] MEDS ORDERED: Sodium Chloride 0.9% 100 ML ONE (21:23)
--- NOTE | 2017-07-19 22:40 | CT ---
EXAM: CT Head Without Intravenous Contrast EXAM DATE/TIME: 07/19/2017 5:41 PM CLINICAL HISTORY: 86 years old, male; Pain; Headache; Headache not specified TECHNIQUE: Axial computed tomography images of the head/brain without intravenous contrast. All CT scans at this facility use one or more dose reduction techniques, viz.: automated exposure control; ma/kV adjustment per patient size (including targeted exams where dose is matched to indication; i.e. head); or iterative reconstruction technique. Coronal and sagittal reformatted images were created and reviewed. COMPARISON: CT - HEAD W/O CONTRAST 2017-01-25 13:47 FINDINGS: Again seen are bilateral frontal extra-axial low density fluid collections likely representing chronic subdural hygromas. No intracranial hemorrhage. No intracranial edema. No evidence of infarct. There is partial opacification of the right maxillary sinus with thickening of the adjacent wall supportive of chronic sinusitis. There is opacification of a single ethmoid air cell unchanged. Again seen is a small mucosal retention cyst at right frontal ethmoidal recess. Again seen are under aerated mastoid air cells w a small amount of fluid. Again seen is fluid within the middle auditory canals, greater on the left. IMPRESSION: No acute intracranial findings. Chronic sinusitis, mastoiditis, otitis media. Chronic bilateral frontal subdural hygromas.
--- NOTE | 2017-07-19 23:10 | CT ---
EXAM: CT Abdomen and Pelvis With Intravenous Contrast EXAM DATE/TIME: 07/19/2017 5:40 PM CLINICAL HISTORY: 86 years old, male; Pain; Abdominal pain; Generalized; Additional info: Abd pain. Sent phy. Doc. Sent CT a/p report TECHNIQUE: Axial computed tomography images of the abdomen and pelvis with intravenous contrast. All CT scans at this facility use one or more dose reduction techniques, viz.: automated exposure control; ma/kV adjustment per patient size (including targeted exams where dose is matched to indication; i.e. head); or iterative reconstruction technique. Coronal and sagittal reformatted images were created and reviewed. CONTRAST: 90 mL of [id number] administered intravenously. COMPARISON: CT - ABD PELVIS PO IV CONTRAST 2016-01-20 21:30 FINDINGS: Sternotomy wires. Cardiac leads. Clips in the region of the GE junction. Small amount of consolidation in the right lung base. The suprarenal aorta measures 2.8 cm in diameter unchanged. No aortic dissection. The liver is normal. Multiple small nodules of splenic tissue in the left upper quadrant. Stable pancreatic atrophy. No gallstones. No hydronephrosis or perinephric stranding. Stable right hydroureter. Underdistended stomach. The right colon is distended with stool consistent with mild constipation. Terminal ileum identified on coronal image 37.The appendix is not identified however there are no secondary signs of appendicitis such as pericecal stranding. The prostate is enlarged. Asymmetry of the seminal vesicles more prominent on the right similar to prior. Minimal stable wall thickening urinary bladder possibly secondary to bladder outlet obstruction from enlarged prostate. Recommend correlation with urinalysis if clinically indicated. Small amount of stranding/fluid in the right inguinal region unchanged. IMPRESSION: Findings similar to prior study as described in detail above. Enlarged prostate. Recommend correlation with PSA level. Mild stable anterior wall thickening of the urinary bladder. Mild right -sided constipation.
--- NOTE | 2017-07-19 23:38 | ED PDOC ---
"- Laboratory Results Result Diagrams: 07/19/17 18:25 07/19/17 18:25 - ECG O2 Sat by Pulse Oximetry: 98 Pulse Ox Interpretation: Normal Medical Decision Making Medical Decision MakinPM Patient endorsed to me by Dr. Phan pending workup 9PM Patient pacing hallway, comfortable, no distress 11PM EXAM: CT Abdomen and Pelvis With Intravenous Contrast EXAM DATE/TIME: 07/19/2017 5:40 PM CLINICAL HISTORY: 86 years old, male; Pain; Abdominal pain; Generalized; Additional info: Abd pain. Sent phy. Doc. Sent CT a/p report TECHNIQUE: Axial computed tomography images of the abdomen and pelvis with intravenous contrast. All CT scans at this facility use one or more dose reduction techniques, viz.: automated exposure control; ma/kV adjustment per patient size (including targeted exams where dose is matched to indication; i.e. head); or iterative reconstruction technique. Coronal and sagittal reformatted images were created and reviewed. CONTRAST: 90 mL of [id number] administered intravenously. COMPARISON: CT - ABD PELVIS PO IV CONTRAST 2016-01-20 21:30 FINDINGS: Sternotomy wires. Cardiac leads. Clips in the region of the GE junction. Small amount of consolidation in the right lung base. The suprarenal aorta measures 2.8 cm in diameter unchanged. No aortic dissection. The liver is normal. Multiple small nodules of splenic tissue in the left upper quadrant. Stable pancreatic atrophy. JUVENCIO LUA | Final Radiology Report CONFIDENTIALITY STATEMENT This report is intended only for use by the referring physician, and only in accordance with law. If you received this in error, call [phone]. Page 2 of 2 No gallstones. No hydronephrosis or perinephric stranding. Stable right hydroureter. Underdistended stomach. The right colon is distended with stool consistent with mild constipation. Terminal ileum identified on coronal image 37.The appendix is not identified however there are no secondary signs of appendicitis such as pericecal stranding. The prostate is enlarged. Asymmetry of the seminal vesicles more prominent on the right similar to prior. Minimal stable wall thickening urinary bladder possibly secondary to bladder outlet obstruction from enlarged prostate. Recommend correlation with urinalysis if clinically indicated. Small amount of stranding/fluid in the right inguinal region unchanged. IMPRESSION: Findings similar to prior study as described in detail above. Enlarged prostate. Recommend correlation with PSA level. Mild stable anterior wall thickening of the urinary bladder. Mild right -sided constipation EXAM: CT Head Without Intravenous Contrast EXAM DATE/TIME: 07/19/2017 5:41 PM CLINICAL HISTORY: 86 years old, male; Pain; Headache; Headache not specified TECHNIQUE: Axial computed tomography images of the head/brain without intravenous contrast. All CT scans at this facility use one or more dose reduction techniques, viz.: automated exposure control; ma/kV adjustment per patient size (including targeted exams where dose is matched to indication; i.e. head); or iterative reconstruction technique. Coronal and sagittal reformatted images were created and reviewed. COMPARISON: CT - HEAD W/O CONTRAST 2017-01-25 13:47 FINDINGS: Again seen are bilateral frontal extra-axial low density fluid collections likely representing chronic subdural hygromas. No intracranial hemorrhage. No intracranial edema. No evidence of infarct. There is partial opacification of the right maxillary sinus with thickening of the adjacent wall supportive of chronic sinusitis. There is opacification of a single ethmoid air cell unchanged. Again seen is a small mucosal retention cyst at right frontal ethmoidal recess. Again seen are under aerated mastoid air cells w a small amount of fluid. Again seen is fluid within the middle auditory canals, greater on the left. DELLABLAIRZENAIDAJUVENCIO Ugalde | Final Radiology Report CONFIDENTIALITY STATEMENT This report is intended only for use by the referring physician, and only in accordance with law. If you received this in error, call [phone]. Page 2 of 2 IMPRESSION: No acute intracranial findings. Chronic sinusitis, mastoiditis, otitis media. Chronic bilateral frontal subdural hygromas. Thank you for allowing us to participate in the care of your patient. Dictated and Authenticated by: Naa Walker MD 07/19/2017 10:40 PM Eastern Time ([place] & [place]) Patient feeling well, wants to eat and go home. Informed of results, states that he has chronic constipation and dizziness. Spoke with FP resident Dr. Tanner who states that patient's current complaints are chronic complaints, states he will expedite followup for patient. Patient stable, well appearing, tolerating PO upon discharge. Disposition - Clinical Impression Clinical Impression: Abdominal discomfort, Constipation, Dizziness - POA Present On Arrival: None - Disposition Referrals: Lucio Carmen MD [Family Provider] - Disposition: Routine/Home Disposition Time: 23:38 Condition: STABLE Prescriptions: Docusate Sodium [Dulcolax Stool Softener] 100 mg PO BID #8 capsule Instructions: Constipation in Adults, Dizziness, Nonvertigo, (DC) Print Language: PERSIAN"
[2017-07-19 23:59] VITALS: BP 124/77; PULSE 71; RESP 15; TEMP 98.5; O2SAT 97
--- NOTE | 2017-07-20 18:45 | CARD ---
APPROVED REPORT EKG Measurement Heart [id number] <Conclusion> Atrial-sensed ventricular-paced rhythm with prolonged AV conduction with frequent AV dual-paced complexes Abnormal ECG
== END 2017-07-19 23:59 | disposition home or self-care (01) ==
LOC: H.ER 17:09
DX: R10.9 Unspecified abdominal pain (principal); K59.09 Other constipation; R42 Dizziness and giddiness; E03.9 Hypothyroidism, unspecified; E11.9 Type 2 diabetes mellitus without complications; E78.00 Pure hypercholesterolemia, unspecified; F32.9 Major depressive disorder, single episode, unspecified; F41.9 Anxiety disorder, unspecified; I11.0 Hypertensive heart disease with heart failure; Z95.0 Presence of cardiac pacemaker; Z95.1 Presence of aortocoronary bypass graft; N40.0 Benign prostatic hyperplasia without lower urinary tract symptoms; I50.9 Heart failure, unspecified
CPT/HCPCS: 70450; 74177; 80053; 82948; 84484; 85025; 93005; 96374; 96375; 99283; J2270; J7030; Q9966; Q9967

== ENCOUNTER 2017-08-14 21:56 | Observation (INO) | payer MEDICARE, MEDICAID ==
[2017-08-14 21:58] VITALS: BMI 17.7
--- NOTE | 2017-08-14 23:15 | ED PDOC ---
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 Symptoms associated with nausea, denies syncope, orthopnea, edema or fever/cough. Past Medical History Reviewed: Historical Data, Nursing Documentation, Vital Signs Vital Signs: Last Vital Signs Temp 98.0 F 08/14/17 22:10 Pulse 65 08/14/17 22:10 Resp 18 08/14/17 22:10 BP 165/72 H 08/14/17 22:10 Pulse Ox 99 08/14/17 22:10 - Medical History PMH: Anxiety, Arthritis, Atrial Fibrillation, CAD, Cardia Arrhythmia, CHF, Depression, Diabetes, HTN, Hypercholesterolemia, Hypothyroidism Denies: HIV, Chronic Kidney Disease - Surgical History Surgical History: CABG, Pacemaker - Family History Family History: States: Unknown Family Hx - Living Arrangements Living Arrangements: With Family - Social History Current smoker - smoking cessation education provided: No - Home Medications Home Medications: Ambulatory Orders Medication Instructions Recorded Clopidogrel [Plavix] 75 mg PO BID 06/15/17 Levothyroxine Sodium [Levoxyl] 50 mcg PO DAILY 06/15/17 Metoprolol Succinate [Toprol XL] 50 mg PO DAILY 06/15/17 Omeprazole [Omeprazole] 20 mg PO DAILY 06/15/17 Repaglinide [Prandin] 0.5 mg PO DAILY 06/15/17 Tamsulosin [Flomax] 0.4 mg PO DAILY 06/15/17 Temazepam [Restoril] 30 mg PO DAILY 06/15/17 Docusate Sodium [Dulcolax Stool 100 mg PO BID #8 capsule 07/19/17 Softener] - Allergies Allergies/Adverse Reactions: Allergies Allergy/AdvReac Type Severity Reaction Status Date / Time No Known Allergies Allergy Verified 07/19/17 17:13 Review of Systems Constitutional: Negative for: Fever, Chills Cardiovascular: Positive for: Chest Pain, Palpitations Respiratory: Positive for: Shortness of Breath Gastrointestinal: Positive for: Nausea. Negative for: Abdominal Pain Genitourinary Male: Negative for: Dysuria Musculoskeletal: Negative for: Neck Pain, Back Pain Skin: Negative for: Rash, Lesions Neurological: Positive for: Dizziness. Negative for: Weakness Psych: Negative for: Depression Physical Exam - Reviewed Nursing Documentation Reviewed: Yes Vital Signs Reviewed: Yes - Physical Exam Appears: Positive for: Non-toxic Head Exam: Positive for: ATRAUMATIC, NORMAL INSPECTION, NORMOCEPHALIC Skin: Positive for: Normal Color, Warm, DRY Eye Exam: Positive for: EOMI, Normal appearance, PERRL ENT: Positive for: Normal ENT Inspection Neck: Positive for: Normal, Painless ROM Cardiovascular/Chest: Positive for: Regular Rate, Rhythm Respiratory: Positive for: CNT, Normal Breath Sounds Gastrointestinal/Abdominal: Positive for: Normal Exam, Soft. Negative for: Tenderness, Guarding Back: Positive for: Normal Inspection Extremity: Positive for: Normal ROM. Negative for: Swelling Neurologic/Psych: Positive for: Alert, Oriented. Negative for: Motor/Sensory Deficits - ECG ECG: Positive for: Interpreted By Nh ECG Rhythm: Positive for: Venticular Paced, Nonspecific Changes Rate: 65 O2 Sat by Pulse Oximetry: 99 Pulse Ox Interpretation: Normal - Radiology X-Ray: Interpreted by Nh X-Ray Interpretation: No Acute Disease (pacer, sternal wires) Disposition - Disposition
[2017-08-14 23:45] LABS: BASO # 0.1 K/uL (0.0-0.2); BASO % 1.2 % (0.0-2.0); EOS # 0.2 K/uL (0.0-0.7); EOS % 4.5 % (0.0-4.0); LYMPH # 1.7 K/uL (1.0-4.3); LYMPH % 31.2 % (20.0-40.0); MEAN CELL VOLUME 88.8 fl (80.0-94.0); MEAN CORPUSCULAR HEMOGLOBIN 29.5 pg (27.0-31.0); MEAN CORPUSCULAR HGB CONC 33.3 g/dL (33.0-37.0); MEAN PLATELET VOLUME 9.1 fl (7.2-11.7); MONO # 0.9 K/uL (0.0-0.8); MONO % 16.7 % (0.0-10.0); NEUT # 2.5 K/uL (1.8-7.0); NEUT % 46.4 % (50.0-75.0); NRBC % 0.1 % (0.0-0.0); RBC 4.39 Mil/uL (4.40-5.90); RED CELL DISTRIBUTION WIDTH 15.1 % (11.5-14.5); WHITE BLOOD COUNT 5.4 K/uL (4.8-10.8)
[2017-08-14 23:57] LABS: ALB/GLOB RATIO 1.1 (1.0-2.1); ALT/SGPT 36 U/L (21-72); AST/SGOT 40 U/L (17-59); BLOOD UREA NITROGEN 29 mg/dl (9-20); CALCIUM 8.7 mg/dL (8.4-10.2); GFR AFRICAN-AMERICAN > 60; GFR NON-AFRICAN AMERICAN 57
[2017-08-14 23:58] LABS: INR 4.8 (0.9-1.2); PARTIAL THROMBOPLASTIN TIME 68.4 Seconds (25.6-37.1); PROTHROMBIN TIME 54.4 Seconds (9.8-13.1)
[2017-08-15 00:08] LABS: B-TYPE NATRIURETIC PEPTIDE 163 pg/ml (0-900)
[2017-08-15] MEDS ORDERED: Sodium Chloride 0.9% 1,000 ML IV SCH ×2 (00:45→17:19)
[2017-08-15] MEDS: Sodium Chloride 0.9% 1,000 ML IV SCH ×2 (01:49→09:00)
[2017-08-15 02:05] LABS: URINE BACTERIA RARE (<OCC); URINE BILIRUBIN NEGATIVE (NEGATIVE); URINE BLOOD NEGATIVE (NEGATIVE); URINE CLARITY CLEAR (Clear); URINE COLOR COLORLESS (YELLOW); URINE GLUCOSE (UA) NEG (Normal); URINE LEUKOCYTE ESTERASE NEG Leu/uL (Negative); URINE PROTEIN NEGATIVE (NEGATIVE); URINE UROBILINOGEN 0.2-1.0 mg/dL (0.2-1.0)
--- NOTE | 2017-08-15 02:37 | CP.PCM.HP ---
History of Present Illness - History of Present Illness History of Present Illness: 86 YO M w/ PMH of HTN, CAD, Diastolic CHF, A fib, Diet controlled DM2, hypothyroidism presents to the ER for pressure type of pain on the left side of his chest associated with dizziness. State he has this in the past as well but today as he was walking home around 7pm it worsened. Denies any SOB or palpitations. He is unable to quantify how many blocks he can walk before developing symptoms. When asked if he feels lightheaded or like the room is spinning, patients states that he feels as if he is drunk and unsteady. However denies any alcohol or illicit drug usage. Denies any falls or head trauma. PMD: NCC: Last visit on 08/14/17: Dr. Angie NGUYEN Cardiology Dr. Shelley: Last visit 2 weeks ago PMHx: CAD, CHF, Afib, pacemaker, HTN, HLD, DM, hypothyroidism SHx: CABG, Pacemaker Allergies: NKDA Social hx: denies smoking, EtOH, drugs. Medications: checked with [facility] ER Course EKG: Ventricular paced nonspecific changes Troponin x 1 negative X Ray: No acute changes noted CBC CMP PT/INR Update: Chest pain was relieved with nitrate. Dizziness was resolved after IVF. Full code Next of kin: Son: Maynor Garcia: [phone] Present on Admission - Present on Admission Any Indicators Present on Admission: No Review of Systems - Review of Systems All systems: reviewed and no additional remarkable complaints except Past Patient History - Infectious Disease Hx of Infectious Diseases: None - Tetanus Immunizations Tetanus Immunization: Unknown - Past Medical History & Family History Past Medical History?: Yes - Past Social History Smoking Status: Never Smoked - CARDIAC Hx Atrial Fibrillation: Yes Hx Cardia Arrhythmia: Yes Hx Congestive Heart Failure: Yes Hx Hypercholesterolemia: Yes Hx Hypertension: Yes Hx Pacemaker: Yes - PULMONARY Hx Respiratory Disorders: No - NEUROLOGICAL Hx Neurological Disorder: No - HEENT Hx HEENT Problems: No - RENAL Hx Chronic Kidney Disease: No - ENDOCRINE/METABOLIC Hx Hypothyroidism: Yes - HEMATOLOGICAL/ONCOLOGICAL Hx Human Immunodeficiency Virus (HIV): No - INTEGUMENTARY Hx Dermatological Problems: No - MUSCULOSKELETAL/RHEUMATOLOGICAL Hx Arthritis: Yes - GASTROINTESTINAL Hx Gastrointestinal Disorders: Yes - GENITOURINARY/GYNECOLOGICAL Hx Genitourinary Disorders: Yes Hx Prostate Problems: Yes - PSYCHIATRIC Hx Anxiety: Yes Hx Depression: Yes - SURGICAL HISTORY Hx Coronary Artery Bypass Graft: Yes - ANESTHESIA Hx Anesthesia: Yes Hx Anesthesia Reactions: No Hx Malignant Hyperthermia: No Meds Allergies/Adverse Reactions: Allergies Allergy/AdvReac Type Severity Reaction Status Date / Time No Known Allergies Allergy Verified 07/19/17 17:13 Physical Exam - Constitutional Appears: No Acute Distress - Head Exam Head Exam: NORMAL INSPECTION - Eye Exam Eye Exam: Normal appearance Pupil Exam: NORMAL ACCOMODATION - Neck Exam Neck exam: Positive for: Normal Inspection - Respiratory Exam Respiratory Exam: Clear to Auscultation Bilateral, NORMAL BREATHING PATTERN. absent: Rhonchi, Wheezes - Cardiovascular Exam Cardiovascular Exam: REGULAR RHYTHM, +S1, +S2 - GI/Abdominal Exam GI & Abdominal Exam: Normal Bowel Sounds, Soft. absent: Tenderness - Extremities Exam Extremities exam: Positive for: normal inspection. Negative for: calf tenderness - Neurological Exam Neurological exam: Alert, Oriented x3 Additional comments: Motor and sensation grossly intact - Psychiatric Exam Psychiatric exam: Normal Affect - Skin Skin Exam: Normal Color, Warm Results - Vital Signs Recent Vital Signs: Last Vital Signs Temp 98.0 F 08/14/17 22:10 Pulse 65 08/14/17 23:18 Resp 18 08/14/17 22:10 BP 165/72 H 08/14/17 22:10 Pulse Ox 99 08/14/17 23:18 - Labs Result Diagrams: 08/14/17 23:19 08/15/17 04:45 Labs: Laboratory Results - last 24 hr 08/14/17 08/14/17 08/14/17 23:17 23:19 23:19 WBC 5.4 RBC 4.39 L Hgb 13.0 Hct 39.0 MCV 88.8 MCH 29.5 MCHC 33.3 RDW 15.1 H Plt Count 168 MPV 9.1 Neut % (Auto) 46.4 L Lymph % (Auto) 31.2 [place] % (Auto) 16.7 H Eos % (Auto) 4.5 H Baso % (Auto) 1.2 Neut # (Auto) 2.5 Lymph # (Auto) 1.7 [place] # (Auto) 0.9 H Eos # (Auto) 0.2 Baso # (Auto) 0.1 PT INR APTT Sodium 142 Potassium 5.2 H Chloride 101 Carbon Dioxide 28 Anion Gap 18 BUN 29 H Creatinine 1.2 Est GFR ( Amer) > 60 Est GFR (Non-Af Amer) 57 POC Glucose (mg/dL) 99 Random Glucose 81 Calcium 8.7 Total Bilirubin 0.4 AST 40 ALT 36 Alkaline Phosphatase 107 Troponin I < 0.0120 NT-Pro-B Natriuret Pep 163 Total Protein 7.6 Albumin 4.0 Globulin 3.7 Albumin/Globulin Ratio 1.1 08/14/17 23:19 WBC RBC Hgb Hct MCV MCH MCHC RDW Plt Count MPV Neut % (Auto) Lymph % (Auto) [place] % (Auto) Eos % (Auto) Baso % (Auto) Neut # (Auto) Lymph # (Auto) [place] # (Auto) Eos # (Auto) Baso # (Auto) PT 54.4 H* INR 4.8 H APTT 68.4 H Sodium Potassium Chloride Carbon Dioxide Anion Gap BUN Creatinine Est GFR ( Amer) Est GFR (Non-Af Amer) POC Glucose (mg/dL) Random Glucose Calcium Total Bilirubin AST ALT Alkaline Phosphatase Troponin I NT-Pro-B Natriuret Pep Total Protein Albumin Globulin Albumin/Globulin Ratio Assessment & Plan - Assessment and Plan (Free Text) Assessment: 86 y/o M with PMH including HTN, Afib, Diet controlled DM2, Hypothyroidism, Chronic constipation is being admitted for dizziness and chest pain. 1) Chest pain - EKG: No acute ischemic changes noted - Troponin x 1 negative - Troponin Q8 - Pain relieved with nitrates - Consider Cardiology consult - Repeat EKG in AM 2) Dizziness - BUN/Creatinine ration > 20:1: Dehydration - Dizziness improved after IVF - Patient has been advised to D/C Restoril in past visit, because can cause worsening dizziness, however patient states he needs it for his tinnitus. On previous notes have talked to patients PMD and patient has been taking for years and is stable on it. Will talk to patients PMD and reconsider. - C/W IVF 3) Afib, chronic -Rate, rhythm controlled s/p pacemaker - Supratherapeutic INR : INR 4.8 on warfarin 3mg - Will skip dose tomorrow morning and adjust dose 4) Diastolic CHF -Chronic, no acute exacerbation -Last echo performed on 12/15/16 detected grade 1 abnormal relaxation pattern and EF of 55% -On B-aby 5) DM 2 Patient continues to take Prandin after being told on multiple occasions to D/C medication because of overcontrolled HBA1C: 07/28/17: HBA1C: 6.6 6)Hypothyroidism -Patient had hitory of non compliance with levothyroxine on previous admission but states he has been taking all medicine -TSH 14.4 on 07/28/17 -Will resume levothyroxine 50 mcg PO daily and follow repeat TSH 7) DVT prophylaxis - On warfarin : Supratherapeutic INR
[2017-08-15] MEDS ORDERED: Sod Polystyrene Sulf 15 gm/60 ml Susp PO ONE (02:54)
[2017-08-15] MEDS ORDERED: Sod Polystyrene Sulf 15 gm/60 ml Susp ONE ×2 (04:47→04:50)
[2017-08-15 05:08] LABS: ALB/GLOB RATIO 0.9 (1.0-2.1); ALBUMIN 3.2 g/dL (3.5-5.0); ALT/SGPT 30 U/L (21-72); AST/SGOT 33 U/L (17-59); BLOOD UREA NITROGEN 25 mg/dl (9-20); CALCIUM 8.2 mg/dL (8.4-10.2); GFR AFRICAN-AMERICAN > 60; GFR NON-AFRICAN AMERICAN > 60
[2017-08-15] MEDS: Levothyroxine 50 MCG TAB PO SCH (06:42)
[2017-08-15 08:24] LABS: T4 5.54 ug/dl (5.5-11.0)
[2017-08-15] MEDS: Metoprolol Succinate 50 mg XL Tab PO SCH (08:58)
[2017-08-15] MEDS: Pantoprazole 40 mg EC Tab PO SCH (08:58)
--- NOTE | 2017-08-15 09:11 | RAD ---
HISTORY: SOB COMPARISON: Portable chest 01/25/2017. FINDINGS: LUNGS: No acute pulmonary disease appreciated bilaterally. PLEURA: No significant pleural effusion identified, no pneumothorax apparent. CARDIOVASCULAR: Normal cardiac size. No pulmonary vascular congestion. Sternotomy wires and post CABG related surgical clips are seen at the mediastinum once again with permanent cardiac pacemaker reiterated. OSSEOUS STRUCTURES: No significant abnormalities. VISUALIZED UPPER ABDOMEN: Normal. OTHER FINDINGS: None. IMPRESSION: No interval acute cardiopulmonary disease appreciated. Pacemaker and post CABG changes again appreciated.
[2017-08-15 11:25] LABS: INR 4.7 (0.9-1.2)
[2017-08-15 11:26] LABS: PARTIAL THROMBOPLASTIN TIME 59.9 Seconds (25.6-37.1)
--- NOTE | 2017-08-15 17:18 | CARD ---
APPROVED REPORT EKG Measurement Heart [id number] <Conclusion> Atrial-sensed ventricular-paced rhythm with prolonged AV conduction Abnormal ECG
--- NOTE | 2017-08-15 18:18 | CP.PCM.CON ---
History of Present Illness - History of Present Illness History of Present Illness: I was asked to see patient for Dr Spencer, who I am covering. 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 Patient is a 86 year old male with PMH HTN, hypercholesterolemia, CAD s/p CABG, sick sinus syndrome s/p PPM, who presents with dizziness and chest pain. The patient's pain is present at rest. There was no associated dyspnea. The patient was brought to ER and found to have a supratherapeutic INR. The patient last saw Dr Shelley 2 weeks ago. Review of Systems - Constitutional Constitutional: absent: As Per HPI, Anorexia, Chills, Daytime Sleepiness, Excessive Sweating, Fatigue, Fever, Frequent Falls, Headache, Increased Appetite , Lethargy, Malaise, Night Sweats, Snoring, Sleep Apnea, Weight Gain, Weight Loss, Weakness, Other - EENT Eyes: absent: As Per HPI, Blind Spots, Blurred Vision, Change in Vision, Decreased Night Vision, Diplopia, Discharge, Dry Eye, Exophthalmos, Floaters, Irritation, Itchy Eyes, Loss of Peripheral Vision, Pain, Photophobia, Requires Corrective Lenses, Sees Flashes, Spots in Vision, Tunnel Vision, Other Visual Disturbances, Loss of Vision, Other Ears: absent: As Per HPI, Decreased Hearing, Ear Discharge, Ear Pain, Tinnitus, Abnormal Hearing, Disequilibrium, Dizziness, Other Nose/Mouth/Throat: absent: As Per HPI, Epistaxis, Nasal Congestion, Nasal Discharge, Nasal Obstruction, Nasal Trauma, Nose Pain, Post Nasal Drip, Sinus Pain, Sinus Pressure, Bleeding Gums, Change in Voice, Dental Pain, Dry Mouth, Dysphagia, Halitosis, Hoarsness, Lip Swelling, Mouth Lesions, Mouth Pain, Odynophagia, Sore Throat, Throat Swelling, Tongue Swelling, Facial Pain, Neck Pain, Neck Mass, Other - Cardiovascular Cardiovascular: absent: As Per HPI, Acrocyanosis, Chest Pain, Chest Pain at Rest , Chest Pain with Activity, Claudication, Diaphoresis, Dyspnea, Dyspnea on Exertion, Edema, Irregular Heart Rhythm, Pain Radiating to Arm/Neck/Jaw, Leg Edema, Leg Ulcers, Lightheadedness, Orthopnea, Palpitations, Paroxysmal Nocturnal Dyspnea, Pedal Edema, Radiating Pain, Rapid Heart Rate, Slow Heart Rate, Syncope, Other - Respiratory Respiratory: absent: As Per HPI, Cough, Dyspnea, Hemoptysis, Dyspnea on Exertion , Wheezing, Snoring, Stridor, Pain on Inspiration, Chest Congestion, Excessive Mucous Production, Change in Mucous Color, Pain with Coughing, Other - Gastrointestinal Gastrointestinal: absent: As Per HPI, Abdominal Pain, Belching, Bloating, Change in Bowel Habits, Change in Stool Character, Coffee Ground Emesis, Constipation, Cramping, Diarrhea, Dyspepsia, Dysphagia, Early Satiety, Excessive Flatus, Fecal Incontinence, Heartburn, Hematemesis, Hematochezia, Loose Stools, Melena, Nausea, Odynophagia, Temesmus, Vomiting, Other - Musculoskeletal Musculoskeletal: absent: As Per HPI, Abnormal Gait, Arthralgias, Atrophy, Back Pain, Deformity, Joint Swelling, Limited Range of Motion, Loss of Height, Muscle Cramps, Muscle Weakness, Myalgias, Neck Pain, Numbness, Radiating Pain into Limb, Stiffness, Tingling, Other - Integumentary Integumentary: absent: As Per HPI, Acne, Alopecia, Bleeding Lesions, Change in Hair, Change in Nails, Change in Pigmentation, Changing Lesions, Dry Skin, Erythema, Furuncle, Hirsutism, Lesions, New Lesions, Non-Healing Lesions, Photosensitivity, Pruritus, Rash, Skin Pain, Skin Ulcer, Sores, Striae, Swelling , Unusual Bruising, Wounds, Jaundice, Other - Neurological Neurological: absent: As Per HPI, Abnormal Gait, Abnormal Hearing, Abnormal Movements, Abnormal Speech, Behavioral Changes, Burning Sensations, Confusion, Convulsions, Disequilibrium, Dizziness, Numbness, Focal Weakness, Frequent Falls , Headaches, Lack of Coordination, Loss of Vision, Memory Loss, Paresthesias, Radicular Pain, Restless Legs, Sensory Deficit, Syncope, Tingling, Tremor, Vertigo, Weakness, Other Visual Disturbances, Other - Psychiatric Psychiatric: absent: As Per HPI, Abnormal Sleep Pattern, Anhedonia, Anxiety, Auditory Hallucinations, Behavioral Changes, Change in Appetite, Change in Libido, Confusion, Depression, Difficulty Concentrating, Hallucinations, Homicidal Ideation, Hopelessness, Irritability, Memory Loss, Mood Swings, Panic Attacks, Paranoia, Suicidal Ideation, Visual Hallucinations, Tactile Hallucinations, Other - Endocrine Endocrine: absent: As Per HPI, Change in Body Appearance, Change in Libido, Cold Intolorance, Deepening of Voice, Excessive Sweating, Fatigue, Flushing, Heat Intolorance, Increase in Ring/Shoe/Hat Size, Palpitations, Polydipsia, Polyphagia, Polyuria, Other - Hematologic/Lymphatic Hematologic: absent: As Per HPI, Easy Bleeding, Easy Bruising, Lymphadenopathy, Other Past Patient History - Infectious Disease Hx of Infectious Diseases: None - Tetanus Immunizations Tetanus Immunization: Unknown - Past Medical History & Family History Past Medical History?: Yes - Past Social History Smoking Status: Former Smoker - CARDIAC Hx Atrial Fibrillation: Yes Hx Cardia Arrhythmia: Yes Hx Congestive Heart Failure: Yes Hx Hypercholesterolemia: Yes Hx Hypertension: Yes Hx Pacemaker: Yes - PULMONARY Hx Respiratory Disorders: No - NEUROLOGICAL Hx Neurological Disorder: No - HEENT Hx HEENT Problems: No - RENAL Hx Chronic Kidney Disease: No - ENDOCRINE/METABOLIC Hx Diabetes Mellitus Type 2: Yes Hx Hypothyroidism: Yes - HEMATOLOGICAL/ONCOLOGICAL Hx AIDS: No Hx Human Immunodeficiency Virus (HIV): No - INTEGUMENTARY Hx Dermatological Problems: No - MUSCULOSKELETAL/RHEUMATOLOGICAL Hx Arthritis: Yes Hx Falls: No - GASTROINTESTINAL Hx Gastrointestinal Disorders: Yes - GENITOURINARY/GYNECOLOGICAL Hx Genitourinary Disorders: Yes Hx Prostate Problems: Yes - PSYCHIATRIC Hx Anxiety: Yes Hx Depression: Yes Hx Substance Use: No - SURGICAL HISTORY Hx Coronary Artery Bypass Graft: Yes - ANESTHESIA Hx Anesthesia: Yes Hx Anesthesia Reactions: No Hx Malignant Hyperthermia: No Has any member of the family had a problem w/ anesthesia?: No Meds Allergies/Adverse Reactions: Allergies Allergy/AdvReac Type Severity Reaction Status Date / Time No Known Allergies Allergy Verified 07/19/17 17:13 - Medications Medications: Current Medications Clopidogrel Bisulfate (Plavix) 75 mg PO DAILY [facility] Docusate Sodium (Colace) 100 mg PO BID [facility] Last Admin: 08/15/17 17:16 Dose: 100 mg Sodium Chloride (Sodium Chloride 0.9%) 1,000 mls @ 80 mls/hr IV .[id number] [facility] Stop: 08/16/17 00:43 Levothyroxine Sodium (Synthroid) 50 mcg PO DAILY@0630 [facility] Last Admin: 08/15/17 06:42 Dose: 50 mcg Metoprolol Succinate (Toprol Xl) 50 mg PO DAILY [facility] Last Admin: 08/15/17 08:58 Dose: 50 mg Pantoprazole Sodium (Protonix Ec Tab) 40 mg PO DAILY [facility] Last Admin: 08/15/17 08:58 Dose: 40 mg Tamsulosin HCl (Flomax) 0.4 mg PO DAILY [facility] Last Admin: 08/15/17 08:57 Dose: 0.4 mg Temazepam (Restoril) [address] [facility] Physical Exam - Constitutional Appears: Non-toxic - Head Exam Head Exam: NORMAL INSPECTION - Eye Exam Eye Exam: Normal appearance Pupil Exam: NORMAL ACCOMODATION - ENT Exam ENT Exam: Mucous Membranes Moist - Neck Exam Neck exam: Positive for: Normal Inspection - Respiratory Exam Respiratory Exam: NORMAL BREATHING PATTERN - Cardiovascular Exam Cardiovascular Exam: REGULAR RHYTHM - GI/Abdominal Exam GI & Abdominal Exam: Normal Bowel Sounds - Rectal Exam Rectal Exam: Deferred - Extremities Exam Extremities exam: Negative for: pedal edema - Back Exam Back exam: NORMAL INSPECTION - Neurological Exam Neurological exam: Alert, Oriented x3 - Psychiatric Exam Psychiatric exam: Normal Affect - Skin Skin Exam: Normal Color Results - Vital Signs Recent Vital Signs: Last Vital Signs Temp 97.8 F 08/15/17 15:59 Pulse 63 08/15/17 15:59 Resp 20 08/15/17 15:59 BP 111/64 08/15/17 15:59 Pulse Ox 98 08/15/17 15:59 - Labs Result Diagrams: 08/14/17 23:19 08/15/17 04:45 Labs: Laboratory Results - last 24 hr 08/14/17 08/14/17 08/14/17 23:17 23:19 23:19 WBC 5.4 RBC 4.39 L Hgb 13.0 Hct 39.0 MCV 88.8 MCH 29.5 MCHC 33.3 RDW 15.1 H Plt Count 168 MPV 9.1 Neut % (Auto) 46.4 L Lymph % (Auto) 31.2 [place] % (Auto) 16.7 H Eos % (Auto) 4.5 H Baso % (Auto) 1.2 Neut # (Auto) 2.5 Lymph # (Auto) 1.7 [place] # (Auto) 0.9 H Eos # (Auto) 0.2 Baso # (Auto) 0.1 PT INR APTT Sodium 142 Potassium 5.2 H Chloride 101 Carbon Dioxide 28 Anion Gap 18 BUN 29 H Creatinine 1.2 Est GFR ( Amer) > 60 Est GFR (Non-Af Amer) 57 POC Glucose (mg/dL) 99 Random Glucose 81 Calcium 8.7 Magnesium Total Bilirubin 0.4 AST 40 ALT 36 Alkaline Phosphatase 107 Troponin I < 0.0120 NT-Pro-B Natriuret Pep 163 Total Protein 7.6 Albumin 4.0 Globulin 3.7 Albumin/Globulin Ratio 1.1 Thyroxine (T4) TSH 3rd Generation Urine Color Urine Clarity Urine pH Ur Specific [place] Urine Protein Urine Glucose (UA) Urine Ketones Urine Blood Urine Nitrate Urine Bilirubin Urine Urobilinogen Ur Leukocyte Esterase Urine Microscopic WBC Urine Bacteria 08/14/17 08/15/17 08/15/17 23:19 01:56 04:45 WBC RBC Hgb Hct MCV MCH MCHC RDW Plt Count MPV Neut % (Auto) Lymph % (Auto) [place] % (Auto) Eos % (Auto) Baso % (Auto) Neut # (Auto) Lymph # (Auto) [place] # (Auto) Eos # (Auto) Baso # (Auto) PT 54.4 H* INR 4.8 H APTT 68.4 H Sodium 139 Potassium 4.4 Chloride 104 Carbon Dioxide 27 Anion Gap 12 BUN 25 H Creatinine 1.0 Est GFR ( Amer) > 60 Est GFR (Non-Af Amer) > 60 POC Glucose (mg/dL) Random Glucose 94 Calcium 8.2 L Magnesium Total Bilirubin 0.5 AST 33 ALT 30 Alkaline Phosphatase 94 Troponin I NT-Pro-B Natriuret Pep Total Protein 6.8 Albumin 3.2 L Globulin 3.6 Albumin/Globulin Ratio 0.9 L Thyroxine (T4) TSH 3rd Generation Urine Color Colorless Urine Clarity Clear Urine pH 7.0 Ur Specific [place] 1.008 Urine Protein Negative Urine Glucose (UA) Neg Urine Ketones Negative Urine Blood Negative Urine Nitrate Negative Urine Bilirubin Negative Urine Urobilinogen 0.2-1.0 Ur Leukocyte Esterase Neg Urine Microscopic WBC < 1 Urine Bacteria Rare 08/15/17 08/15/17 08/15/17 05:55 06:30 06:52 WBC RBC Hgb Hct MCV MCH MCHC RDW Plt Count MPV Neut % (Auto) Lymph % (Auto) [place] % (Auto) Eos % (Auto) Baso % (Auto) Neut # (Auto) Lymph # (Auto) [place] # (Auto) Eos # (Auto) Baso # (Auto) PT INR APTT Sodium Potassium Chloride Carbon Dioxide Anion Gap BUN Creatinine Est GFR ( Amer) Est GFR (Non-Af Amer) POC Glucose (mg/dL) 89 Random Glucose Calcium Magnesium 2.3 Total Bilirubin AST ALT Alkaline Phosphatase Troponin I < 0.0120 NT-Pro-B Natriuret Pep Total Protein Albumin Globulin Albumin/Globulin Ratio Thyroxine (T4) 5.54 TSH 3rd Generation 15.80 H Urine Color Urine Clarity Urine pH Ur Specific [place] Urine Protein Urine Glucose (UA) Urine Ketones Urine Blood Urine Nitrate Urine Bilirubin Urine Urobilinogen Ur Leukocyte Esterase Urine Microscopic WBC Urine Bacteria 08/15/17 08/15/17 08/15/17 10:57 11:00 15:51 WBC RBC Hgb Hct MCV MCH MCHC RDW Plt Count MPV Neut % (Auto) Lymph % (Auto) [place] % (Auto) Eos % (Auto) Baso % (Auto) Neut # (Auto) Lymph # (Auto) [place] # (Auto) Eos # (Auto) Baso # (Auto) PT 54.0 H* INR 4.7 H APTT 59.9 H D Sodium Potassium Chloride Carbon Dioxide Anion Gap BUN Creatinine Est GFR ( Amer) Est GFR (Non-Af Amer) POC Glucose (mg/dL) 108 102 Random Glucose Calcium Magnesium Total Bilirubin AST ALT Alkaline Phosphatase Troponin I NT-Pro-B Natriuret Pep Total Protein Albumin Globulin Albumin/Globulin Ratio Thyroxine (T4) TSH 3rd Generation Urine Color Urine Clarity Urine pH Ur Specific [place] Urine Protein Urine Glucose (UA) Urine Ketones Urine Blood Urine Nitrate Urine Bilirubin Urine Urobilinogen Ur Leukocyte Esterase Urine Microscopic WBC Urine Bacteria 08/15/17 16:09 WBC RBC Hgb Hct MCV MCH MCHC RDW Plt Count MPV Neut % (Auto) Lymph % (Auto) [place] % (Auto) Eos % (Auto) Baso % (Auto) Neut # (Auto) Lymph # (Auto) [place] # (Auto) Eos # (Auto) Baso # (Auto) PT INR APTT Sodium Potassium Chloride Carbon Dioxide Anion Gap BUN Creatinine Est GFR ( Amer) Est GFR (Non-Af Amer) POC Glucose (mg/dL) Random Glucose Calcium Magnesium Total Bilirubin AST ALT Alkaline Phosphatase Troponin I < 0.0120 NT-Pro-B Natriuret Pep Total Protein Albumin Globulin Albumin/Globulin Ratio Thyroxine (T4) TSH 3rd Generation Urine Color Urine Clarity Urine pH Ur Specific [place] Urine Protein Urine Glucose (UA) Urine Ketones Urine Blood Urine Nitrate Urine Bilirubin Urine Urobilinogen Ur Leukocyte Esterase Urine Microscopic WBC Urine Bacteria - EKG Data EKG Interpreted by: Myself Assessment & Plan (1) Chest pain Assessment and Plan: no current chest pain. EKG shows no ischemia. recommend serial cardaic enzymes x 3. if negative can continue workup with Dr Shelley. Status: Acute Priority: High (2) INR (international normal ratio) abnormal Assessment and Plan: no active bleeding currently. can hold coumadin and observe. Status: Acute (3) HTN (hypertension) Assessment and Plan: blood pressure control Status: Acute
[2017-08-15] MEDS ORDERED: Benzocaine/Menthol (Cepacol) Lozenge PO PRN (23:58)
[2017-08-16] MEDS ORDERED: Mag&Al/Simet/Diphen/Lido 237 ML KIT PO PRN (00:12)
[2017-08-16 00:13] VITALS: RESP 18
[2017-08-16] MEDS: Levothyroxine 50 MCG TAB PO SCH (05:50)
[2017-08-16 06:41] LABS: HEMOGLOBIN 12.9 g/dL (12.0-18.0); MEAN CELL VOLUME 88.5 fl (80.0-94.0); MEAN CORPUSCULAR HEMOGLOBIN 29.6 pg (27.0-31.0); MEAN CORPUSCULAR HGB CONC 33.5 g/dL (33.0-37.0); RBC 4.34 Mil/uL (4.40-5.90); RED CELL DISTRIBUTION WIDTH 14.9 % (11.5-14.5); WHITE BLOOD COUNT 5.1 K/uL (4.8-10.8)
[2017-08-16 06:47] LABS: PROTHROMBIN TIME 46.1 Seconds (9.8-13.1)
[2017-08-16] MEDS: Pantoprazole 40 mg EC Tab PO SCH (09:34)
[2017-08-16] MEDS: Metoprolol Succinate 50 mg XL Tab PO SCH (09:35)
--- NOTE | 2017-08-16 10:55 | CP.PCM.DIS ---
Provider - Provider Date of Admission: 08/14/17 23:45 Attending physician: Ivette Farias MD Primary care physician: Dr. Farias Consults: Dr. Rodas, [employer] Time Spent in preparation of Discharge (in minutes): 30 Diagnosis - Discharge Diagnosis (1) Chest pain Status: Resolved (2) INR (international normal ratio) abnormal Status: Acute (3) Hypothyroidism Status: Chronic Hospital Course - Lab Results Lab Results: Most Recent Lab Values WBC 5.1 K/uL (4.8-10.8) 08/16/17 05:30 RBC 4.34 Mil/uL (4.40-5.90) L 08/16/17 05:30 Hgb 12.9 g/dL (12.0-18.0) 08/16/17 05:30 Hct 38.5 % (35.0-51.0) 08/16/17 05:30 MCV 88.5 fl (80.0-94.0) 08/16/17 05:30 MCH 29.6 pg (27.0-31.0) 08/16/17 05:30 MCHC 33.5 g/dL (33.0-37.0) 08/16/17 05:30 RDW 14.9 % (11.5-14.5) H 08/16/17 05:30 Plt Count 170 K/uL (130-400) 08/16/17 05:30 MPV 9.1 fl (7.2-11.7) 08/14/17 23:19 Neut % (Auto) 46.4 % (50.0-75.0) L 08/14/17 23:19 Lymph % (Auto) 31.2 % (20.0-40.0) 08/14/17 23:19 [place] % (Auto) 16.7 % (0.0-10.0) H 08/14/17 23:19 Eos % (Auto) 4.5 % (0.0-4.0) H 08/14/17 23:19 Baso % (Auto) 1.2 % (0.0-2.0) 08/14/17 23:19 Neut # (Auto) 2.5 K/uL (1.8-7.0) 08/14/17 23:19 Lymph # (Auto) 1.7 K/uL (1.0-4.3) 08/14/17 23:19 [place] # (Auto) 0.9 K/uL (0.0-0.8) H 08/14/17 23:19 Eos # (Auto) 0.2 K/uL (0.0-0.7) 08/14/17 23:19 Baso # (Auto) 0.1 K/uL (0.0-0.2) 08/14/17 23:19 PT 46.1 Seconds (9.8-13.1) H* D 08/16/17 05:30 INR 4.0 (0.9-1.2) H 08/16/17 05:30 APTT 59.9 Seconds (25.6-37.1) H D 08/15/17 11:00 Sodium 139 mmol/l (132-148) 08/15/17 04:45 Potassium 4.4 MMOL/L (3.6-5.0) 08/15/17 04:45 Chloride 104 mmol/L (98-107) 08/15/17 04:45 Carbon Dioxide 27 mmol/L (22-30) 08/15/17 04:45 Anion Gap 12 (10-20) 08/15/17 04:45 BUN 25 mg/dl (9-20) H 08/15/17 04:45 Creatinine 1.0 mg/dl (0.8-1.5) 08/15/17 04:45 Est GFR ( Amer) > 60 08/15/17 04:45 Est GFR (Non-Af Amer) > 60 08/15/17 04:45 POC Glucose (mg/dL) 99 mg/dL (65-110) 08/16/17 05:33 Random Glucose 94 mg/dL (75-110) 08/15/17 04:45 Calcium 8.2 mg/dL (8.4-10.2) L 08/15/17 04:45 Magnesium 2.3 MG/DL (1.6-2.3) 08/15/17 06:30 Total Bilirubin 0.5 mg/dl (0.2-1.3) 08/15/17 04:45 AST 33 U/L (17-59) 08/15/17 04:45 ALT 30 U/L (21-72) 08/15/17 04:45 Alkaline Phosphatase 94 U/L (38-126) 08/15/17 04:45 Troponin I < 0.0120 ng/mL (0.00-0.120) 08/15/17 16:09 NT-Pro-B Natriuret Pep 163 pg/ml (0-900) 08/14/17 23:19 Total Protein 6.8 G/DL (6.3-8.2) 08/15/17 04:45 Albumin 3.2 g/dL (3.5-5.0) L 08/15/17 04:45 Globulin 3.6 gm/dL (2.2-3.9) 08/15/17 04:45 Albumin/Globulin Ratio 0.9 (1.0-2.1) L 08/15/17 04:45 Thyroxine (T4) 5.54 ug/dl (5.5-11.0) 08/15/17 06:30 TSH 3rd Generation 15.80 mIU/ML (0.46-4.68) H 08/15/17 06:30 Urine Color Colorless (YELLOW) 08/15/17 01:56 Urine Clarity Clear (Clear) 08/15/17 01:56 Urine pH 7.0 (5.0-8.0) 08/15/17 01:56 Ur Specific [place] 1.008 (1.003-1.030) 08/15/17 01:56 Urine Protein Negative mg/dL (NEGATIVE) 08/15/17 01:56 Urine Glucose (UA) Neg mg/dL (Normal) 08/15/17 01:56 Urine Ketones Negative mg/dL (NEGATIVE) 08/15/17 01:56 Urine Blood Negative (NEGATIVE) 08/15/17 01:56 Urine Nitrate Negative (NEGATIVE) 08/15/17 01:56 Urine Bilirubin Negative (NEGATIVE) 08/15/17 01:56 Urine Urobilinogen 0.2-1.0 mg/dL (0.2-1.0) 08/15/17 01:56 Ur Leukocyte Esterase Neg April/uL (Negative) 08/15/17 01:56 Urine Microscopic WBC < 1 /hpf (0-5) 08/15/17 01:56 Urine Bacteria Rare (<OCC) 08/15/17 01:56 - Hospital Course Hospital Course: 86 year old male with PMH including HTN, Afib, Diet controlled DM2, Hypothyroidism, hypercholesterolemia, CAD s/p CABG, sick sinus syndrome s/p PPM was admitted for dizziness and chest pain. Patient was given fluids, aspirin, and kayexelate for mild hyperkalemia. Patient was noted to have supratherapeutic INR, no active bleeding/symptoms. EKG unremarkable. Troponin x [address] Rodas covering for patient's [employer], Dr. Shelley, was consulted. Patient to follow up with piano accompanist in 1 week and primary care doctor. Patient instructed to decrease warfarin from 3 -> 2mg and to start on Sunday. Check INR before patient's appointment August 21. Also patient was noted to have elevated TSH, increased levothyroxine dose. Discharged in stable condition. Discharge Exam - Head Exam Head Exam: ATRAUMATIC, NORMAL INSPECTION, NORMOCEPHALIC - Eye Exam Eye Exam: Normal appearance - Neck Exam Neck exam: Normal Inspection - Respiratory Exam Respiratory Exam: Clear to PA & Lateral, NORMAL BREATHING PATTERN, UNREMARKABLE - Cardiovascular Exam Cardiovascular Exam: REGULAR RHYTHM, +S1, +S2. absent: Systolic Murmur - GI/Abdominal Exam GI & Abdominal Exam: Normal Bowel Sounds, Soft, Unremarkable. absent: Tenderness - Extremities Exam Extremities exam: normal inspection - Back Exam Back exam: NORMAL INSPECTION - Neurological Exam Neurological exam: Alert, Oriented x3 - Psychiatric Exam Psychiatric exam: Normal Affect, Normal Mood - Skin Skin Exam: Dry, Intact, Normal Color, Warm Discharge Plan - Discharge Medications Prescriptions: Levothyroxine [Synthroid] 75 mcg PO DAILY #30 tab Warfarin [Coumadin] 2 mg PO DAILY #30 tab - Follow Up Plan Condition: STABLE Disposition: HOME/ ROUTINE Additional Instructions: Patient to follow up with Primary Care Dr. Pantoja August, at 8:30am. Patient to follow up with [employer], Dr. Shelley in 1 week. Please bring discharge papers to appt. Patient to warfarin Sunday at 2mg daily If any new/worsening symptoms, please return to ED. Referrals: Stoney Shelley MD [Staff Provider] - Lucio Carmen MD [Family Provider] -
[2017-08-16 12:10] VITALS: BP 112/61; PULSE 64; TEMP 97.8; O2SAT 98
== END 2017-08-16 14:30 | disposition home or self-care (01) ==
LOC: H.ER 21:56 → H.ERHOLD 23:45 → H.TEL 08-15 05:32
PROVIDERS: ADMIT Family Medicine Geriatric Medicine; ATTEND Family Medicine Geriatric Medicine
DX: R07.9 Chest pain, unspecified (principal); R79.1 Abnormal coagulation profile; E03.9 Hypothyroidism, unspecified; E11.9 Type 2 diabetes mellitus without complications; E78.00 Pure hypercholesterolemia, unspecified; E78.5 Hyperlipidemia, unspecified; E87.5 Hyperkalemia; I11.0 Hypertensive heart disease with heart failure; I50.32 Chronic diastolic (congestive) heart failure; I48.2 Chronic atrial fibrillation; I25.10 Atherosclerotic heart disease of native coronary artery without angina pectoris; Z95.1 Presence of aortocoronary bypass graft; Z95.0 Presence of cardiac pacemaker; F32.9 Major depressive disorder, single episode, unspecified; F41.9 Anxiety disorder, unspecified; K59.09 Other constipation; M19.90 Unspecified osteoarthritis, unspecified site; E86.0 Dehydration; H93.19 Tinnitus, unspecified ear; Z79.01 Long term (current) use of anticoagulants
CPT/HCPCS: 36415; 71045; 80053; 81003; 82948; 83735; 83880; 84436; 84443; 84484; 85025; 85027; 85610; 85730; 93005; 96360; 96361; 99285; G0378; J7030

== ENCOUNTER 2018-01-20 08:32 | Emergency (ER) | payer MEDICARE, MEDICAID ==
[2018-01-20 08:43] VITALS: BMI 20.5
[2018-01-20] MEDS ORDERED: Sodium Chloride 0.9% 1,000 ML IV STA (08:58)
--- NOTE | 2018-01-20 09:03 | ED PDOC ---
HPI: General Adult Time Seen by Provider: 01/20/18 08:48 Chief Complaint (Nursing): Dizziness/Lightheaded Chief Complaint (Provider): Throat pain and dizziness History Per: Patient History/Exam Limitations: no limitations Onset/Duration Of Symptoms: Other (x few weeks) Current Symptoms Are (Timing): Still Present Additional Complaint(s): 87 year old male, with a past medical history of CAD, presents to the ED complaining of sore throat and dizziness for a few weeks. Denies nausea, vomiting, fever, and cough. PMD: Lucio Mayfield Past Medical History Reviewed: Historical Data, Nursing Documentation, Vital Signs Vital Signs: Last Vital Signs Temp 98.5 F 01/20/18 08:54 Pulse 85 01/20/18 08:54 Resp 19 01/20/18 08:54 BP 145/84 01/20/18 08:54 Pulse Ox 99 01/20/18 08:54 - Medical History PMH: Anxiety, Arthritis, Atrial Fibrillation, CAD, Cardia Arrhythmia, CHF, Depression, Diabetes, HTN, Hypercholesterolemia, Hypothyroidism Denies: HIV, Chronic Kidney Disease - Surgical History Surgical History: CABG, Pacemaker - Family History Family History: States: Unknown Family Hx - Social History Current smoker - smoking cessation education provided: No Ex-Smoker (has not smoked in the last 12 months): Yes Alcohol: None Drugs: Denies - Home Medications Home Medications: Ambulatory Orders Medication Instructions Recorded Metoprolol Succinate XL [Toprol XL] 25 mg PO DAILY 06/15/17 Omeprazole 20 mg PO DAILY 06/15/17 Tamsulosin [Flomax] 0.4 mg PO DAILY 06/15/17 Temazepam [Restoril] 30 mg PO HS 06/15/17 Clopidogrel [Plavix] 75 mg PO DAILY tab 08/16/17 Docusate [Colace] 100 mg PO BID cap 08/16/17 Levothyroxine [Synthroid] 75 mcg PO DAILY #30 tab 08/16/17 Atorvastatin [Lipitor] 10 mg PO DAILY 01/20/18 Meclizine [Meclizine*] 25 mg PO Q8 #15 tab 01/20/18 Valsartan [Diovan] 40 mg PO DAILY 01/20/18 Warfarin [Coumadin] 2.5 mg PO DAILY 01/20/18 - Allergies Allergies/Adverse Reactions: Allergies Allergy/AdvReac Type Severity Reaction Status Date / Time No Known Allergies Allergy Verified 07/19/17 17:13 Review of Systems ROS Statement: Except As Marked, All Systems Reviewed And Found Negative Constitutional: Negative for: Fever ENT: Positive for: Throat Pain Respiratory: Negative for: Cough Gastrointestinal: Negative for: Nausea, Vomiting Neurological: Positive for: Dizziness Physical Exam - Reviewed Nursing Documentation Reviewed: Yes Vital Signs Reviewed: Yes - Physical Exam Appears: Positive for: Non-toxic, No Acute Distress Head Exam: Positive for: ATRAUMATIC, NORMOCEPHALIC Skin: Positive for: Normal Color, Warm, Dry Eye Exam: Positive for: Normal appearance ENT: Negative for: Pharyngeal Erythema (or swelling or exudates) Neck: Positive for: Normal, Painless ROM, Supple Cardiovascular/Chest: Positive for: Regular Rate, Rhythm. Negative for: Murmur Respiratory: Positive for: Normal Breath Sounds. Negative for: Wheezing, Respiratory Distress Gastrointestinal/Abdominal: Positive for: Normal Exam, Soft. Negative for: Tenderness Extremity: Positive for: Normal ROM Neurologic/Psych: Positive for: Alert, Oriented (x3). Negative for: Motor/Sensory Deficits (focal deficits) - Laboratory Results Result Diagrams: 01/20/18 09:15 01/20/18 14:09 - ECG O2 Sat by Pulse Oximetry: 99 (RA) Pulse Ox Interpretation: Normal Medical Decision Making Medical Decision Making: Initial Plan: --ECG --CMP --CBC --Antivert 25mg PO --Sodium chloride 1000mL IV --Influenza A B stat --Rapid strep stat Scribe Attestation: Documented by Earl Cruz acting as a scribe for Chaz Scott MD. Provider Scribe Attestation: All medical record entries made by the Scribe were at my direction and personally dictated by me. I have reviewed the chart and agree that the record accurately reflects my personal performance of the history, physical exam, medical decision making, and the department course for this patient. I have also personally directed, reviewed, and agree with the discharge instructions and disposition. Disposition - Clinical Impression Clinical Impression: Vertigo - Patient ED Disposition Is Patient to be Admitted: No Counseled Patient/Family Regarding: Studies Performed, Diagnosis, Need For Followup, Rx Given - Disposition [facility]errals: [facility] [Outside] Disposition: Routine/Home Disposition Time: 14:47 Condition: FAIR Prescriptions: Meclizine [Meclizine*] 25 mg PO Q8 #15 tab Instructions: Vertigo (a Type of Dizziness) Forms: [facility] (Sinhala) Print Language: UKRAINIAN
[2018-01-20 09:39] LABS: BASO # 0.1 K/uL (0.0-0.2); BASO % 1.2 % (0.0-2.0); EOS # 0.2 K/uL (0.0-0.7); EOS % 3.4 % (0.0-4.0); HEMOGLOBIN 12.5 g/dL (12.0-18.0); LYMPH # 0.8 K/uL (1.0-4.3); LYMPH % 17.4 % (20.0-40.0); MEAN CELL VOLUME 90.4 fl (80.0-94.0); MEAN CORPUSCULAR HEMOGLOBIN 29.4 pg (27.0-31.0); MEAN CORPUSCULAR HGB CONC 32.5 g/dL (33.0-37.0); MEAN PLATELET VOLUME 9.2 fl (7.2-11.7); MONO # 0.6 K/uL (0.0-0.8); MONO % 13.1 % (0.0-10.0); NEUT # 2.9 K/uL (1.8-7.0); NEUT % 64.9 % (50.0-75.0); NRBC % 0.2 % (0.0-0.0); RBC 4.26 Mil/uL (4.40-5.90); RED CELL DISTRIBUTION WIDTH 15.7 % (11.5-14.5); WHITE BLOOD COUNT 4.4 K/uL (4.8-10.8)
[2018-01-20 09:45] LABS: ALB/GLOB RATIO 1.1 (1.0-2.1); ALBUMIN 3.8 g/dL (3.5-5.0); ALT/SGPT 26 U/L (21-72); AST/SGOT 33 U/L (17-59); BLOOD UREA NITROGEN 22 mg/dl (9-20); CALCIUM 8.9 mg/dL (8.4-10.2); GFR NON-AFRICAN AMERICAN > 60
[2018-01-20] MEDS ORDERED: Dextrose 5%/0.45% NS 1,000 ML IV SCH (10:30)
[2018-01-20 13:46] VITALS: BP 138/83; PULSE 79; RESP 16; TEMP 98.7
[2018-01-20 14:25] LABS: ALBUMIN 3.7 g/dL (3.5-5.0); ALT/SGPT 24 U/L (21-72); AST/SGOT 31 U/L (17-59); BLOOD UREA NITROGEN 19 mg/dl (9-20); CALCIUM 8.5 mg/dL (8.4-10.2); GFR NON-AFRICAN AMERICAN > 60
[2018-01-20 14:48] VITALS: O2SAT 99
--- NOTE | 2018-01-20 21:03 | CARD ---
APPROVED REPORT Date of service: 01/20/2018 EKG Measurement Heart [id number] <Conclusion> AV dual-paced rhythm with prolonged AV conduction Abnormal ECG
== END 2018-01-20 15:00 | disposition home or self-care (01) ==
LOC: H.ER 08:32
DX: R42 Dizziness and giddiness (principal); E03.9 Hypothyroidism, unspecified; E11.9 Type 2 diabetes mellitus without complications; E78.00 Pure hypercholesterolemia, unspecified; I11.0 Hypertensive heart disease with heart failure; Z79.01 Long term (current) use of anticoagulants; Z95.0 Presence of cardiac pacemaker; Z95.1 Presence of aortocoronary bypass graft
CPT/HCPCS: 80053; 85025; 87070; 87430; 87804; 93005; 96360; 99285; J7030; J7042

== ENCOUNTER 2018-03-30 10:34 | Inpatient (IN) | payer MEDICARE, MEDICAID ==
[2018-03-30] MEDS ORDERED: Heparin Sodium (Porcine) 1,000 Units/ML 30ML IV ONE (10:49)
--- NOTE | 2018-03-30 10:57 | ED PDOC ---
HPI: Chest Pain Time Seen by Provider: 03/30/18 10:39 Chief Complaint (Nursing): Chest Pain History Per: Patient Onset/Duration Of Symptoms: Days (1) Current Symptoms Are (Timing): Still Present Severity: Moderate Quality: Aching Associated Symptoms: Syncope Modifying Factors: None Exacerbating Factors: None Alleviating Factors: None Additional Complaint(s): Chest pain radiating to throat since yesterday assoc with dizziness. Denies nausea or SOB. Past Medical History - Medical History PMH: Anxiety, Arthritis, Atrial Fibrillation, CAD, Cardia Arrhythmia, CHF, Depression, Diabetes, HTN, Hypercholesterolemia, Hypothyroidism Denies: HIV, Chronic Kidney Disease - Surgical History Surgical History: CABG, Pacemaker - Family History Family History: States: Unknown Family Hx - Home Medications Home Medications: Ambulatory Orders Medication Instructions Recorded Metoprolol Succinate XL [Toprol XL] 25 mg PO DAILY 06/15/17 Omeprazole 20 mg PO DAILY 06/15/17 Tamsulosin [Flomax] 0.4 mg PO DAILY 06/15/17 Temazepam [Restoril] 30 mg PO HS 06/15/17 Clopidogrel [Plavix] 75 mg PO DAILY tab 08/16/17 Docusate [Colace] 100 mg PO BID cap 08/16/17 Levothyroxine [Synthroid] 75 mcg PO DAILY #30 tab 08/16/17 Atorvastatin [Lipitor] 10 mg PO DAILY 01/20/18 Meclizine [Meclizine*] 25 mg PO Q8 #15 tab 01/20/18 Valsartan [Diovan] 40 mg PO DAILY 01/20/18 Warfarin [Coumadin] 2.5 mg PO DAILY 01/20/18 - Allergies Allergies/Adverse Reactions: Allergies Allergy/AdvReac Type Severity Reaction Status Date / Time No Known Allergies Allergy Verified 03/30/18 10:54 Review of Systems ROS Statement: Except As Marked, All Systems Reviewed And Found Negative Cardiovascular: Positive for: Chest Pain Neurological: Positive for: Dizziness Physical Exam - Reviewed Nursing Documentation Reviewed: Yes Vital Signs Reviewed: Yes - Physical Exam Appears: Positive for: Non-toxic, Uncomfortable Head Exam: Positive for: ATRAUMATIC, NORMAL INSPECTION, NORMOCEPHALIC Skin: Positive for: Normal Color, Warm, DRY Eye Exam: Positive for: EOMI, Normal appearance, PERRL ENT: Positive for: Normal ENT Inspection Neck: Positive for: Normal, Painless ROM Cardiovascular/Chest: Positive for: Irregularly Irregular Respiratory: Positive for: CNT, Normal Breath Sounds Gastrointestinal/Abdominal: Positive for: Normal Exam, Soft Back: Positive for: Normal Inspection Extremity: Positive for: Normal ROM Neurologic/Psych: Positive for: Alert, Oriented - Progress Re-evaluation Time: 11:13 Condition: Unchanged - Physician Consult Information Time Consulting Physican Contacted: 10:45 Physician Contacted: John Limon - Critical Care Total Time (In Min): 30 Documented Critical Care: Time excludes all time spent performint seperately billable procedures Medical Decision Making Medical Decision Making: Initial EKG reveals afib with mod/rapid response. Abnormal ST segments V3-V5 showing possible post wall [place]. Previous EKG 01/20/2018 revealed paced rhythm with ST segments flat in V3-V5. EKG transmitted to Dr. Limon who does not feel thet current EKG represents STEMI but rather lateral waal ischemia. Recommends IV heparin and will electively cath pt on Sunday. Disposition - Clinical Impression Clinical Impression: ACS (acute coronary syndrome) - Patient ED Disposition Is Patient to be Admitted: Yes - Disposition Disposition Time: 11:15 Condition: FAIR Forms: [email or web address] ([place]) - Pt Status Changed To: Hospital Disposition Of: Inpatient - Admit Certification Admit to Inpatient:: After my assessment, the patient will require hospitalization for at least two midnights. This is because of the severity of symptoms shown, intensity of services needed, and/or the medical risk in this patient being treated as an outpatient. - POA Present On Arrival: None
[2018-03-30] MEDS ORDERED: Heparin 25,000units in D5W 25,000 UNITS/250 ML BAG IV ONE (11:17)
[2018-03-30 11:22] LABS: BASO # 0.1 K/uL (0.0-0.2); BASO % 0.9 % (0.0-2.0); EOS # 0.1 K/uL (0.0-0.7); EOS % 1.1 % (0.0-4.0); HEMOGLOBIN 13.4 g/dL (12.0-18.0); LYMPH # 0.9 K/uL (1.0-4.3); LYMPH % 14.2 % (20.0-40.0); MEAN CELL VOLUME 88.2 fl (80.0-94.0); MEAN CORPUSCULAR HEMOGLOBIN 29.7 pg (27.0-31.0); MEAN CORPUSCULAR HGB CONC 33.7 g/dL (33.0-37.0); MEAN PLATELET VOLUME 9.6 fl (7.2-11.7); MONO # 0.7 K/uL (0.0-0.8); MONO % 11.5 % (0.0-10.0); NEUT # 4.6 K/uL (1.8-7.0); NEUT % 72.3 % (50.0-75.0); RBC 4.52 Mil/uL (4.40-5.90); RED CELL DISTRIBUTION WIDTH 15.1 % (11.5-14.5); WHITE BLOOD COUNT 6.4 K/uL (4.8-10.8)
[2018-03-30] MEDS: Heparin 25,000units in D5W 25,000 UNITS/250 ML BAG IV SCH (11:23)
[2018-03-30 11:24] LABS: ALB/GLOB RATIO 1.1 (1.0-2.1); ALBUMIN 3.9 g/dL (3.5-5.0); ALT/SGPT 31 U/L (21-72); AST/SGOT 30 U/L (17-59); BLOOD UREA NITROGEN 21 mg/dl (9-20); CALCIUM 9.2 mg/dL (8.4-10.2); GFR NON-AFRICAN AMERICAN > 60
[2018-03-30 11:26] LABS: INR 2.3; PROTHROMBIN TIME 25.9 Seconds (9.8-13.1)
[2018-03-30 11:29] LABS: PARTIAL THROMBOPLASTIN TIME 46.6 Seconds (25.6-37.1)
[2018-03-30] MEDS ORDERED: Nitroglycerin 2% Ointment Foilpak UD TOP PRN (12:18)
--- NOTE | 2018-03-30 12:47 | RAD ---
Date of service: 03/30/2018 HISTORY: cough COMPARISON: Frontal chest 08/14/2017. FINDINGS: LUNGS: No active pulmonary disease. PLEURA: No significant pleural effusion identified, no pneumothorax apparent. CARDIOVASCULAR: Calcific atherosclerotic changes are seen related to the thoracic aorta. Multiple lower permanent cardiac pacemaker reiterated as well as post CABG changes. Normal cardiac size. No pulmonary vascular congestion. OSSEOUS STRUCTURES: No significant abnormalities. VISUALIZED UPPER ABDOMEN: Normal. OTHER FINDINGS: None. IMPRESSION: Pacemaker identified once again. No interval acute cardiopulmonary disease appreciable.
--- NOTE | 2018-03-30 13:13 | CP.PCM.HP ---
<Nida Tellez - Last Filed: 03/30/18 13:45> History of Present Illness - History of Present Illness History of Present Illness: 87 yo M with hx CAD (s/p CABG at [facility] more than 3 yrs ago), A-fib, pacemaker placement, hypothyroidism, BPH, diabetes mellitus type 2 (last known A1c July 2017 6.6), dysphasia, anxiety admitted for ACS. Pt presented to ED today with complaint of weakness and chest pain radiating to this neck (unclear if chronic or not). As per ED course: EKG showed a-fib with moderate/rapid response; abnormal ST segments V3-V5 showing possible post wall [place]; previous EKG 01/20/2018 revealed paced rhythm with ST segments flat in V3-V5. EKG transmitted to Dr. Limon who does not feel that current EKG represents STEMI but rather lateral wall ischemia- recommends IV heparin and will electively cath pt on Sunday. PMD: [facility] Manager Of Transportation: Dr. Shelley; pt states he sees Dr. Shelley at least yearly for pacemaker check Med hx: via eCW CAD (s/p CABG at [facility] more than 3 yrs ago), A-fib, pacemaker placement, hypothyroidism, BPH, diabetes mellitus type 2, anxiety Surg hx: CABG, multivessel at [facility] (pt does not know year, however mentioned in first eCW note in 2014), pacemaker placement Fam hx: noncontributory, no hx of cardiovasc disease as per pt Social hx: former smoker (age [age]), about 1-2 cig/day; denies alcohol or drug use. Lives alone, has homemaker 3 hrs a day M-F. Son lives in [place]. Allergies: nkda Meds: as per last eCW note 02/15/18: temazepam 30 mg qhs prn, levothyroxine 75 mcg qd, metoprolol succinate ER 25 mg qd, losartan 25 mg qd, atorvastatin 10 mg qd, coumadin 3 mg qd, omeprazole 20 mg qd, miralax 1 pckt qd, bisacodyl 5 mg prn, ranitidine 300mg qhs, flonase qd Code status discussed with pt - full code. Next of kin/person to notify: Maynor Sarmiento Jr, son In ED: Vitals: BP 103/72, HR 103, O2 sat on room air 100%, RR 20, Temp 98.1 EKG findings as above Manager Of Transportation Dr. Limon consulted for possible code heart; as per Dr. Limon, appe ars to not be STEMI but rather lateral wall ischemia; heparin recommended Troponin neg x1 CBC- WBC 6.4, Hgb 13.4, Hct 39.9, PLT 156 INR 2.3, PT 25.9, PTT 46.6 CMP unremarlable aside from BUN 21, Cr 1.1 (both baseline for pt); elevated glucose at 145 CXR - pacemaker; no interval acute cardiopulmonary disease Echo ordered Received: Aspirin 325 mg x1 Nitroglycerin 0.4 mg sublingual x1 Heparin bolus 3,200 units Heparin drip started 12units/kg/hr Present on Admission - Present on Admission Any Indicators Present on Admission: No Review of Systems - Constitutional Constitutional: Fatigue, Malaise. absent: Chills, Night Sweats - Cardiovascular Cardiovascular: Chest Pain, Pain Radiating to Arm/Neck/Jaw - Respiratory Respiratory: absent: Dyspnea - Gastrointestinal Gastrointestinal: absent: Abdominal Pain Past Patient History - Infectious Disease Hx of Infectious Diseases: None - Tetanus Immunizations Tetanus Immunization: Unknown - Past Medical History & Family History Past Medical History?: Yes - Past Social History Smoking Status: Former Smoker Alcohol: None Drugs: Denies Home Situation {Lives}: Alone - CARDIAC Hx Atrial Fibrillation: Yes Hx Cardia Arrhythmia: Yes Hx Hypercholesterolemia: Yes Hx Hypertension: Yes Hx Pacemaker: Yes - PULMONARY Hx Respiratory Disorders: No - NEUROLOGICAL Hx Neurological Disorder: No - HEENT Hx HEENT Problems: No - RENAL Hx Chronic Kidney Disease: No - ENDOCRINE/METABOLIC Hx Hypothyroidism: Yes - HEMATOLOGICAL/ONCOLOGICAL Hx Human Immunodeficiency Virus (HIV): No - INTEGUMENTARY Hx Dermatological Problems: No - MUSCULOSKELETAL/RHEUMATOLOGICAL Hx Arthritis: Yes - GASTROINTESTINAL Hx Gastrointestinal Disorders: Yes Hx Constipation: Yes - GENITOURINARY/GYNECOLOGICAL Hx Genitourinary Disorders: Yes Hx Prostate Problems: Yes - PSYCHIATRIC Hx Anxiety: Yes Hx Depression: Yes Hx Substance Use: No - SURGICAL HISTORY Hx Coronary Artery Bypass Graft: Yes - ANESTHESIA Hx Anesthesia: Yes Hx Anesthesia Reactions: No Hx Malignant Hyperthermia: No Meds Allergies/Adverse Reactions: Allergies Allergy/AdvReac Type Severity Reaction Status Date / Time No Known Allergies Allergy Verified 03/30/18 10:54 Physical Exam - Constitutional Appears: No Acute Distress Additional comments: tired appearing, appears stated age - Head Exam Head Exam: NORMAL INSPECTION - ENT Exam ENT Exam: Mucous Membranes Moist Additional comments: wearing NC - Respiratory Exam Respiratory Exam: NORMAL BREATHING PATTERN. absent: Respiratory Distress - Cardiovascular Exam Cardiovascular Exam: Irregular Rhythm Additional comments: + apparent midline scar from prior CABG + pacemaker right upper chest - GI/Abdominal Exam GI & Abdominal Exam: Soft. absent: Tenderness - Extremities Exam Extremities exam: Positive for: normal inspection - Neurological Exam Neurological exam: Alert - Skin Skin Exam: Dry, Warm Results - Vital Signs Recent Vital Signs: Last Vital Signs Temp 98.1 F 03/30/18 10:54 Pulse 103 H 03/30/18 10:54 Resp 20 03/30/18 10:54 BP 103/72 03/30/18 10:54 Pulse Ox 100 03/30/18 10:54 - Labs Result Diagrams: 03/30/18 11:00 03/30/18 11:00 Labs: Laboratory Results - last 24 hr 03/30/18 03/30/18 03/30/18 11:00 11:00 11:00 WBC 6.4 RBC 4.52 Hgb 13.4 Hct 39.9 MCV 88.2 D MCH 29.7 MCHC 33.7 RDW 15.1 H Plt Count 156 MPV 9.6 Neut % (Auto) 72.3 Lymph % (Auto) 14.2 L [place] % (Auto) 11.5 H Eos % (Auto) 1.1 Baso % (Auto) 0.9 Neut # (Auto) 4.6 Lymph # (Auto) 0.9 L [place] # (Auto) 0.7 Eos # (Auto) 0.1 Baso # (Auto) 0.1 PT 25.9 H INR 2.3 APTT 46.6 H Sodium 139 Potassium 3.8 Chloride 103 Carbon Dioxide 27 Anion Gap 13 BUN 21 H Creatinine 1.1 Est GFR ( Amer) > 60 Est GFR (Non-Af Amer) > 60 Random Glucose 145 H Calcium 9.2 Total Bilirubin 0.7 AST 30 ALT 31 Alkaline Phosphatase 117 Troponin I < 0.0120 Total Protein 7.5 Albumin 3.9 Globulin 3.6 Albumin/Globulin Ratio 1.1 Assessment & Plan - Assessment and Plan (Free Text) Assessment: 87 yo M with hx CAD (s/p CABG at [facility] more than 3 yrs ago), A-fib, pacemaker placement, hypothyroidism, BPH, diabetes mellitus type 2 (last known A1c July 2017 6.6), admitted for suspected ACS. EKG in ED showed ST changes in leads V3-V5 from prior EKG; cardio Dr. Limon consulted- does not believe to be STEMI - recommends heparin. Given 3200 U bolus; started on heparin drip 12 u/kg/hr. Hemodynamically stable at this time - admitted to ICU. Plan: ACS - Admitted to ICU; cardiac monitoring - Cardiology consult - Dr. Limon; recs heparin; recs appreciated, cath Sunday - S/p heparin bolus 3200 U; now on heparin drip 12 units/kg/hr; following ACS normogram, check PTT - Troponin Q6hrs x2; first trop negative - Echo - f/u official read - Repeat EKG - Nitropaste TOP Q4 prn for chest pain Coronary Artery Disease - Lipid panel - Resume home med atorvastatin Hypertension - Home med losartan, metoprolol - CMP, Mg, Phos, B12 - proBNP Atrial Fibrillation - Has pacemaker - Hold warfarin, as pt is on heparin drip - PT/INR/PTT Hypothyroidism - Resume home med levothyroxine (as per pharmacy last 3x picked up 75 mcg dose) - TSH Anxiety/Depression - Resume home med temazepam Constipation - Colace Diabetes Mellitus Type 2 - No home meds; last A1c 6.6; monitor glucose on BMP - HbA1c Diet and GI proph - Pureed modified consistency - Protonix IVP DVT prophylaxis - Pt on heparin drip <Malachi Pope D - Last Filed: 03/30/18 16:42> Results - Vital Signs Recent Vital Signs: Last Vital Signs Temp 97.8 F 03/30/18 16:00 Pulse 63 03/30/18 16:00 Resp 20 03/30/18 16:00 BP 136/69 03/30/18 16:00 Pulse Ox 100 03/30/18 16:00 - Labs Result Diagrams: 03/30/18 11:00 03/30/18 11:00 Labs: Laboratory Results - last 24 hr 03/30/18 03/30/18 03/30/18 11:00 11:00 11:00 WBC 6.4 RBC 4.52 Hgb 13.4 Hct 39.9 MCV 88.2 D MCH 29.7 MCHC 33.7 RDW 15.1 H Plt Count 156 MPV 9.6 Neut % (Auto) 72.3 Lymph % (Auto) 14.2 L [place] % (Auto) 11.5 H Eos % (Auto) 1.1 Baso % (Auto) 0.9 Neut # (Auto) 4.6 Lymph # (Auto) 0.9 L [place] # (Auto) 0.7 Eos # (Auto) 0.1 Baso # (Auto) 0.1 PT 25.9 H INR 2.3 APTT 46.6 H Sodium 139 Potassium 3.8 Chloride 103 Carbon Dioxide 27 Anion Gap 13 BUN 21 H Creatinine 1.1 Est GFR ( Amer) > 60 Est GFR (Non-Af Amer) > 60 Random Glucose 145 H Calcium 9.2 Total Bilirubin 0.7 AST 30 ALT 31 Alkaline Phosphatase 117 Troponin I < 0.0120 Total Protein 7.5 Albumin 3.9 Globulin 3.6 Albumin/Globulin Ratio 1.1 Attending/Attestation - Attestation I have personally seen and examined this patient.: Yes I have fully participated in the care of the patient.: Yes I have reviewed all pertinent clinical information: Yes Notes (Text): 03/30/18 16:41 Patient seen and examined with resident. Case discussed and agreed with assessment and plan of management
--- NOTE | 2018-03-30 21:02 | CARD ---
APPROVED REPORT Date of service: 03/30/2018 EKG Measurement Heart [id number] <Conclusion> Atrial-sensed ventricular-paced rhythm with prolonged AV conduction T wave abnormality, consider anterior ischemia Abnormal ECG
--- NOTE | 2018-03-30 21:05 | CARD ---
APPROVED REPORT Date of service: 03/30/2018 EKG Measurement Heart [id number] <Conclusion> Atrial-sensed ventricular-paced rhythm with prolonged AV conduction Abnormal ECG
--- NOTE | 2018-03-30 21:08 | CARD ---
APPROVED REPORT Date of service: 03/30/2018 EKG Measurement Heart [id number] <Conclusion> Atrial flutter with rapid ventricular response with occasional ventricular-paced complexes Right bundle branch block Inferior infarct, age undetermined Abnormal ECG
--- NOTE | 2018-03-30 22:29 | CARD ---
APPROVED REPORT Date of service: 03/30/2018 EXAM: Two-dimensional and M-mode echocardiogram with Doppler and color Doppler. Other Information Quality : GoodRhythm : NSR INDICATION ACS 2D DIMENSIONS IVSd1.58 (0.7-1.1cm)LVDd3.41 (3.9-5.9cm) LVOT Diameter2.30 (1.8-2.4cm)PWd1.02 (0.7-1.1cm) IVSs1.59 (0.8-1.2cm)LVDs2.55 (2.5-4.0cm) FS (%) 25.3 %PWs0.92 (0.8-1.2cm) M-Mode DIMENSIONS Left Atrium (MM)4.14 (2.5-4.0cm)Aortic Root3.08 (2.2-3.7cm) Aortic Valve AoV Peak Tvauprzg671.7cm/sAoV VTI23.4cmAO Peak GR.5mmHg LVOT Peak Izthtfon97.0cm/sLVOT VTI18.60cmAO Mean GR.3mmHg RAFAEL (VMAX)1.43mo4EYQ (VTI)2.58ez5AT P 1/2 Cikv274pd Mitral Valve MV E Hzapcpzd71.8cm/sMV E Peak Gr.34mmHgMV DECEL TAOK001re MV A Tgavrlfq67.8cm/sMV IWR57xnK/A ratio0.9 MVA (PHT)3.85cm2 TDI Lateral E' Peak V8.80cm/sMedial E' Peak V8.56cm/sE/Lateral E'7.5 E/Medial E'7.7 Pulmonary Valve RVOT VTI13.0cm Tricuspid Valve TR Peak Jjgzymln118jb/sTR Peak Gr.23syNaIXUH15szTi LEFT VENTRICLE The left ventricle is normal size. There is normal left ventricular wall thickness. The left ventricular systolic function is normal. The estimated ejection fraction is 55-60% No regional wall motion abnormalities noted.. Transmitral Doppler flow pattern is Grade I-abnormal relaxation pattern. No left ventricle thrombus noted on this study. There is no ventricular septal defect visualized. There is no left ventricular aneurysm. There is no mass noted in the left ventricle. RIGHT VENTRICLE The right ventricle is normal size. There is normal right ventricular wall thickness. The right ventricular systolic function is normal. PPM lead is noticed in right ventricle. ATRIA The left atrium is mildly dilated. The right atrium size is normal. The interatrial septum is intact with no evidence for an atrial septal defect. AORTIC VALVE The aortic valve is normal in structure. Mild aortic regurgitation is present. There is no aortic valvular stenosis. There is no aortic valvular vegetation. MITRAL VALVE The mitral valve is normal in structure. There is no evidence of mitral valve prolapse. There is no mitral valve stenosis. There is trace mitral valve regurgitation noted. TRICUSPID VALVE The tricuspid valve is normal in structure. There is mild tricuspid valve regurgitation noted. RVSP is calculated at 23 mm Hg. There is no tricuspid valve prolapse or vegetation. There is no tricuspid valve stenosis. PULMONIC VALVE The pulmonary valve is normal in structure. There is no pulmonic valvular regurgitation. There is no pulmonic valvular stenosis. GREAT VESSELS The aortic root is normal in size. The ascending aorta is normal in size. The pulmonary artery is normal. The IVC is normal in size and collapses >50% with inspiration. PERICARDIAL EFFUSION There is no pericardial effusion. There is no pleural effusion. <Conclusion> The estimated ejection fraction is 55-60% Transmitral Doppler flow pattern is Grade I-abnormal relaxation pattern. PPM lead is noticed in right ventricle. The left atrium is mildly dilated. Mild aortic regurgitation is present. There is trace mitral valve regurgitation noted. There is mild tricuspid valve regurgitation noted. RVSP is calculated at 23 mm Hg.
--- NOTE | 2018-03-31 00:39 | CON ---
DATE: 03/30/2018 CRITICAL CARE CONSULTATION LOCATION: The patient in emergency room being admitted to ICU. REASON FOR CONSULTATION: An 87-year-old male with retrosternal pain. HISTORY OF PRESENT ILLNESS: Mr. Sarmiento is an 87-year-old male with history significant for diabetes, hypertension, coronary artery disease, cardiac arrhythmia, status post coronary artery bypass graft surgery and permanent pacemaker insertion. He is also known to have hypothyroidism, anxiety, and osteoarthritis, status post bilateral knee replacement, also reportedly had an exploratory laparotomy reportedly for duodenal ulcer. In ER, patient's vital signs showed temperature 98.1, heart rate 103, respiratory rate 20, saturation 100%, blood pressure 103/72, mean arterial pressure 82. EKG showed atrial fibrillation with abnormal ST segments in V3 and V5, compared to EKG from 01/2018 revealed paced rhythm with ST segment flat in V3 and V5, status post code Heart, seen by Dr. Limon, likely ischemic rather than ST PA, recommended IV heparin and for elective cath on Sunday. Admitted to ICU. REVIEW OF SYSTEMS: No fever, chills, phlegm, or cough. Mild shortness of breath, also on exertion. Pain is less compared to yesterday. Complaining of mild abdominal discomfort. No diarrhea. No dysuria. PHYSICAL EXAMINATION: VITAL SIGNS: Temperature 98.1, heart rate of 103, respiratory rate 20 thoracoabdominal, blood pressure 103/72, mean arterial pressure 82, oxygen saturation 100%, weight 120 pounds. HEAD, EYES, EARS, NOSE, AND THROAT: Pupils are reactive. Conjunctivae pink. Sclerae white. Neck: Supple. Trachea central. CHEST: Bilateral breath sounds, clear to auscultation. HEART: Rhythm irregular. No S3, S4, gallop. ABDOMEN: Bowel sounds present and soft. EXTREMITIES: Scar from the previous knee replacement. SKIN: Scar on the mid abdomen and mid chest from previous surgeries. LABORATORY DATA: WBC 6.4, hemoglobin 13.4, hematocrit 39.9, platelet count 156, neutrophils 72.3, lymphocytes 14, monocytes 11.5. PT 25.9, INR 2.3, PTT 46.6. SMA-7: Sodium 139, potassium 3.8, chloride 103, CO2 of 27, blood urea nitrogen 21, creatinine 1.1. Random glucose 145, calcium 9.2, total bilirubin 0.7, AST 30, ALT 31, alkaline phosphatase 117. Troponin less than 0.012. Total protein 7.5, albumin of 3.9. Microbiology, none reported. Chest x-ray status post coronary artery bypass graft surgery, several sutures are present. No pleural effusion. No pneumothorax. Pacemaker wires in place. IMPRESSION AND PLAN: An 87-year-old male with history significant for hypertension, hyperlipidemia, coronary artery disease, status post coronary artery bypass graft surgery, atrial fibrillation, status post permanent pacemaker insertion, hypothyroidism, on Synthroid, metoprolol, temazepam, Valsartan, warfarin, admitted with retrosternal pain, with radiation to the neck. Laboratory data with normal white count, normal hemoglobin and hematocrit, normal platelet count, coagulopathy with INR 2.3. Troponin less than 0.012, likely ischemic. Follow recommendation from Cardiology. Continue heparin. Nitroglycerin as needed for pain. Continue his medications at home include metoprolol 25 mg p.o. daily, omeprazole 20 mg p.o. daily, Restoril 30 mg p.o. at bedtime, losartan 25 mg p.o. daily, atorvastatin 10 mg p.o. daily, hold warfarin on heparin 1 mg/kg subcu every 12 hours. Lauri Bolivar MD
[2018-03-31] MEDS: Levothyroxine 75 MCG TAB PO SCH (06:14)
[2018-03-31] MEDS: Phenol 1.4% Throat Spray MT PRN ×3 (06:15→21:10)
[2018-03-31] MEDS ORDERED: Levothyroxine 25 MCG TAB PO SCH (06:30)
[2018-03-31 06:56] LABS: BASO # 0.1 K/uL (0.0-0.2); BASO % 0.8 % (0.0-2.0); EOS # 0.3 K/uL (0.0-0.7); EOS % 4.8 % (0.0-4.0); HEMOGLOBIN 12.5 g/dL (12.0-18.0); LYMPH # 1.4 K/uL (1.0-4.3); LYMPH % 23.1 % (20.0-40.0); MEAN CELL VOLUME 89.8 fl (80.0-94.0); MEAN CORPUSCULAR HEMOGLOBIN 29.8 pg (27.0-31.0); MEAN CORPUSCULAR HGB CONC 33.3 g/dL (33.0-37.0); MEAN PLATELET VOLUME 9.7 fl (7.2-11.7); MONO % 16.2 % (0.0-10.0); NEUT # 3.5 K/uL (1.8-7.0); NEUT % 55.1 % (50.0-75.0); NRBC % 0.1 % (0.0-0.0); RBC 4.17 Mil/uL (4.40-5.90); RED CELL DISTRIBUTION WIDTH 14.6 % (11.5-14.5); WHITE BLOOD COUNT 6.3 K/uL (4.8-10.8)
[2018-03-31 07:03] LABS: ALBUMIN 3.6 g/dL (3.5-5.0); ALT/SGPT 26 U/L (21-72); AST/SGOT 30 U/L (17-59); BLOOD UREA NITROGEN 17 mg/dl (9-20); CALCIUM 9.1 mg/dL (8.4-10.2); GFR NON-AFRICAN AMERICAN > 60; HDL CHOLESTEROL 72 MG/DL (30-70)
[2018-03-31 07:08] LABS: B-TYPE NATRIURETIC PEPTIDE 706 pg/ml (0-900)
[2018-03-31 07:13] LABS: LDL CHOLESTEROL 57 mg/dL (0-129)
[2018-03-31 07:27] LABS: PARTIAL THROMBOPLASTIN TIME 125.6 Seconds (25.6-37.1)
[2018-03-31 07:38] LABS: INR 2.4; PROTHROMBIN TIME 27.3 Seconds (9.8-13.1)
[2018-03-31] MEDS ORDERED: Phytonadione 10 mg/ml Inj (Adult) IV ONE (10:12)
[2018-03-31] MEDS: Metoprolol Succinate 25 mg XL Tab PO SCH ×2 (10:51→13:23)
[2018-03-31] MEDS ORDERED: Phytonadione 10 MG in Sodium Chloride 0.9% 50 ML IV ONE (11:00)
--- NOTE | 2018-03-31 13:47 | CP.PCM.PN ---
<Anu Gee - Last Filed: 03/31/18 13:36> Subjective - Date & Time of Evaluation Date of Evaluation: 03/31/18 Time of Evaluation: 09:20 - Subjective Subjective: Patient seen and examined at bedside, in no acute distress. Denies chest pain, weakness, dizziness, SOB. Tolerating PO diet. Patient verbally expressed he is more concerned about his acid reflux than his heart and would consider leaving against medical advice. Discussed and reiterated to patient the reason for his admission, patient agrees to plan. Patients' heparin drip was held overnight due to PTT > 400. Patient INR today 2.4 and PTT 125.6, per discussion with Dr. Bolivar (anatomic pathology manager) and Dr. Limon, continue to hold coumadin, continue heparin drip per normogram and give vitamin K. Plan is for cardiac catheterization tomorrow. Patient is aware and agrees to procedure. Objective - Vital Signs/Intake and Output Vital Signs (last 24 hours): Temp Pulse Resp BP Pulse Ox 97.8 F 125 H 20 159/74 H 100 03/31/18 12:00 03/31/18 13:23 03/31/18 12:00 03/31/18 13:23 03/31/18 12:00 Intake and Output: 03/31/18 03/31/18 06:59 18:59 Intake Total 588 0 Output Total 1550 200 Balance -962 -200 - Medications Medications: Current Medications Atorvastatin Calcium (Lipitor) 10 mg PO HS [facility] Last Admin: 03/30/18 22:10 Dose: 10 mg Docusate Sodium (Colace) 100 mg PO DAILY [facility] Last Admin: 03/31/18 10:50 Dose: 100 mg Heparin Sodium/Dextrose (Heparin 25,000 Units/250ml In D5w) 25,000 units in 250 mls @ 6.532 mls/hr IV .Q24H [facility]; Protocol Last Titration: 03/31/18 10:00 Dose: 4.59 unit/kg/hr, 2.498 mls/hr Levothyroxine Sodium (Synthroid) 75 mcg PO DAILY@0630 [facility] Last Admin: 03/31/18 06:14 Dose: 75 mcg Losartan Potassium (Cozaar) 25 mg PO DAILY [facility] Last Admin: 03/31/18 10:50 Dose: 25 mg Metoprolol Succinate (Toprol Xl) 25 mg PO DAILY [facility] Last Admin: 03/31/18 13:23 Dose: 25 mg Nitroglycerin (Nitro-Bid 2% Oint) 1 ea TOP Q4 PRN PRN Reason: chest pain Pantoprazole Sodium (Protonix Inj) 40 mg IVP DAILY [facility] Last Admin: 03/31/18 10:50 Dose: 40 mg Phenol/Menthol (Phenaseptic 1.4% Throat [place]) 1 spry MT Q2 PRN PRN Reason: throat pain Last Admin: 03/31/18 10:52 Dose: 1 spr Temazepam (Restoril) 30 mg PO HS [facility] Last Admin: 03/30/18 22:10 Dose: 30 mg - Labs Labs: 03/31/18 05:30 03/31/18 05:30 PT 27.3 Seconds (9.8-13.1) H 03/31/18 05:30 INR 2.4 03/31/18 05:30 APTT 125.6 Seconds (25.6-37.1) H 03/31/18 05:30 - Constitutional Appears: No Acute Distress - Head Exam Head Exam: ATRAUMATIC, NORMOCEPHALIC - Eye Exam Eye Exam: EOMI - ENT Exam ENT Exam: Mucous Membranes Moist - Respiratory Exam Respiratory Exam: NORMAL BREATHING PATTERN - Cardiovascular Exam Cardiovascular Exam: +S1, +S2. absent: Gallop - GI/Abdominal Exam GI & Abdominal Exam: Soft, Normal Bowel Sounds - Neurological Exam Neurological Exam: Alert, Awake, Oriented x3 - Psychiatric Exam Psychiatric exam: Normal Affect, Normal Mood - Skin Skin Exam: Dry, Normal Color, Warm Assessment and Plan - Assessment and Plan (Free Text) Assessment: 87 yr old M admitted for ACS and EKG findings for lateral wall ischemia with significant PMHx including CAD (s/p CABG at [facility] more than 3 yrs ago), A-fib, pacemaker placement, hypothyroidism, BPH, NIDDM type 2. Dr. Limon consulted, plan is for catheterization tomorrow, in meantime continue heparin drip. Patient is hemodynamically stable at this time. Plan: 1. Acute Coronary Syndrome -chest pain improved, continue cardiac monitoring -Cardiology consult - Dr. Limon: heparin drip per normogram and cardiac cath on sunday -troponin negative x 3 -03/30/17: Echo LVEF 55-60%, PPM lead noted in right ventricle, -Nitropaste 2% TOP Q4 PRN for chest pain -NPO after midnight for cath 2. Coronary Artery Disease/Hypertension -chronic -Lipid panel TG 46, chol 130, LDL 57, HDL 72, CMP, Mg, Phos, B12 all within normal limit, proBNP normal -continue atorvastatin 10mg PO QHS, metoprolol succinate 25mg PO QD, Losartan 25mg PO QD 3. Atrial Fibrillation -chronic, controlled -Has pacemaker -INR 2.4 today, Hold warfarin, give vitamin K 10 mg PO once as plan is for cath tomorrow and patient is on heparin drip -f/u repeat PT/INR, PTT 4. GERD -chronic, uncontrolled -Protonix 40mg PO QD -referral to GI as outpatient 5. Hypothyroidism -chronic, controlled, TSH 1.13 -continue Levothyroxine 75 mcg PO QD 6. Anxiety/Depression -chronic, controlled -continue temazepam 30mg PO QHS 7. Constipation -chronic, controlled -Colace 100mg PO QD 8. NIDDM Type 2 -chronic, controlled without medication -07/28/17: HbA1c 6.6 -f/u repeat HbA1c 9. Diet and GI proph -Pureed modified consistency, per patient has trouble with regular bite size food DVT prophylaxis - patient is on heparin drip <Natalia Dixon - Last Filed: 03/31/18 14:47> Objective - Vital Signs/Intake and Output Vital Signs (last 24 hours): Temp Pulse Resp BP Pulse Ox 97.8 F 125 H 20 159/74 H 100 03/31/18 12:00 03/31/18 13:23 03/31/18 12:00 03/31/18 13:23 03/31/18 12:00 Intake and Output: 03/31/18 03/31/18 06:59 18:59 Intake Total 588 0 Output Total 1550 200 Balance -962 -200 - Medications Medications: Current Medications Atorvastatin Calcium (Lipitor) 10 mg PO HS [facility] Last Admin: 03/30/18 22:10 Dose: 10 mg Docusate Sodium (Colace) 100 mg PO DAILY [facility] Last Admin: 03/31/18 10:50 Dose: 100 mg Heparin Sodium/Dextrose (Heparin 25,000 Units/250ml In D5w) 25,000 units in 250 mls @ 6.532 mls/hr IV .Q24H [facility]; Protocol Last Titration: 03/31/18 10:00 Dose: 4.59 unit/kg/hr, 2.498 mls/hr Levothyroxine Sodium (Synthroid) 75 mcg PO DAILY@0630 [facility] Last Admin: 03/31/18 06:14 Dose: 75 mcg Losartan Potassium (Cozaar) 25 mg PO DAILY [facility] Last Admin: 03/31/18 10:50 Dose: 25 mg Metoprolol Succinate (Toprol Xl) 25 mg PO DAILY [facility] Last Admin: 03/31/18 13:23 Dose: 25 mg Nitroglycerin (Nitro-Bid 2% Oint) 1 ea TOP Q4 PRN PRN Reason: chest pain Pantoprazole Sodium (Protonix Inj) 40 mg IVP DAILY [facility] Last Admin: 03/31/18 10:50 Dose: 40 mg Phenol/Menthol (Phenaseptic 1.4% Throat [place]) 1 spry MT Q2 PRN PRN Reason: throat pain Last Admin: 03/31/18 10:52 Dose: 1 spr Sucralfate (Carafate Oral Susp) 1 gm PO BID [facility] Temazepam (Restoril) 30 mg PO HS [facility] Last Admin: 03/30/18 22:10 Dose: 30 mg - Labs Labs: 03/31/18 05:30 03/31/18 05:30 PT 27.3 Seconds (9.8-13.1) H 03/31/18 05:30 INR 2.4 03/31/18 05:30 APTT 125.6 Seconds (25.6-37.1) H 03/31/18 05:30 Attending/Attestation - Attestation I have personally seen and examined this patient.: Yes I have fully participated in the care of the patient.: Yes I have reviewed all pertinent clinical information, including history, physical exam and plan: Yes
--- NOTE | 2018-03-31 14:08 | PN ---
DATE: 03/31/2018 CRITICAL CARE CONSULTATION LOCATION: The patient in ICU bed 424. TIME SPENT: 35 minutes. The patient is seen and evaluated at the bedside. Past medical, surgical, family and social history reviewed. SUBJECTIVE: Mr. Sarmiento, 87-year-old , male with history significant for diabetes, hypertension, coronary artery disease, cardiac arrhythmias status post coronary artery bypass graft surgery and permanent pacemaker insertion. Also known to have hypothyroidism, anxiety, osteoarthritis. He is status post by lateral knee replaced admitted with retrosternal pain with EKG changes, currently on heparin. Overnight remains pain free. No shortness of breath or palpitation. Less abdominal discomfort. No diarrhea, fairly good appetite. PHYSICAL EXAMINATION: VITAL SIGNS: Temperature 98.3, heart rate 60, blood pressure 156/82 to 131/71, respiratory rate 24 thoracoabdominal, saturation 100% on oxygen supplement 2 liters nasal cannula. Intake 1198, output 1550, negative balance of 352. Weight 118 pounds. HEAD, EYES, EARS, NOSE AND THROAT: Pupils reactive. Conjunctivae pink. Sclerae are white. NECK: Supple. Trachea is central. CHEST: Bilateral breath sounds. Clear to auscultation. HEART: Rhythm irregular. No S3, S4 rub, gallop. ABDOMEN: Bowel sounds present. Soft. EXTREMITIES: Scar from the previous knee replacement. Scar on the mid abdomen and mid chest from previous surgeries. LABORATORY DATA WBC 6.3, hemoglobin 12.5, hematocrit 37.5, platelet count 160. Neutrophils 55.1, lymphocytes 23.1, monocytes 16.2, eosinophils 4.8. PT 27.3, INR 2.4. SMA-7 sodium 139, potassium 4.1, chloride 98, CO2 of 29, blood urea nitrogen 70, creatinine 1, random glucose 103, calcium 9.1, phosphorus 3.1, magnesium 2. Total bilirubin 0.7, AST 13, ALT 26, alkaline phosphatase 100, troponin negative. Total protein 7.1, albumin 3.6, triglycerides 46, cholesterol 130, LDL 57, HDL 72, B12 of 729, TSH 1.13. Microbiology, none reported. Chest x-ray unremarkable. EKG atrial sensed ventricular paced with prolonged AV conduction, T-wave abnormality. IMPRESSION: An 87-year-old male with history significant for hypertension, hyperlipidemia, coronary artery disease status post coronary artery bypass graft surgery, atrial fibrillation status post permanent pacemaker insertion, hypothyroidism. Admitted with retrosternal pain, abnormal T-wave changes in EKG, negative troponin. Awaiting for an ischemic evaluation pending catheterization on Sunday. History of hypothyroidism, on Synthroid. Hypertension, on metoprolol, valsartan. Atrial fibrillation, on warfarin. INR 2.3. Will continue to hold Coumadin for the procedure. Continue on heparin. Hold heparin 12 hours prior to the procedure. Continue nitroglycerin as needed p.r.n,. on metoprolol 25 mg p.o. daily, omeprazole 20 mg p.o. daily, Restoril 30 mg p.o. at bedtime for insomnia, losartan 20 mg p.o. daily, atorvastatin 10 mg p.o. daily. Lauri Bolivar MD
[2018-03-31] MEDS: Sucralfate 1 gm/10 ml Oral Susp UD PO SCH (18:48)
[2018-03-31 19:08] LABS: PROTHROMBIN TIME 22.2 Seconds (9.8-13.1)
[2018-03-31 19:10] LABS: PARTIAL THROMBOPLASTIN TIME 49.8 Seconds (25.6-37.1)
[2018-04-01 05:39] LABS: HEMOGLOBIN 13.5 g/dL (12.0-18.0); MEAN CELL VOLUME 87.5 fl (80.0-94.0); MEAN CORPUSCULAR HEMOGLOBIN 29.6 pg (27.0-31.0); MEAN CORPUSCULAR HGB CONC 33.8 g/dL (33.0-37.0); RBC 4.58 Mil/uL (4.40-5.90); RED CELL DISTRIBUTION WIDTH 15.1 % (11.5-14.5); WHITE BLOOD COUNT 5.8 K/uL (4.8-10.8)
[2018-04-01 05:44] LABS: INR 1.5; PROTHROMBIN TIME 16.7 Seconds (9.8-13.1)
[2018-04-01 05:47] LABS: PARTIAL THROMBOPLASTIN TIME 46.2 Seconds (25.6-37.1)
[2018-04-01 06:01] LABS: BLOOD UREA NITROGEN 20 mg/dl (9-20); CALCIUM 9.3 mg/dL (8.4-10.2); GFR NON-AFRICAN AMERICAN > 60
--- NOTE | 2018-04-01 09:42 | CP.PCM.PN ---
Subjective - Date & Time of Evaluation Date of Evaluation: 04/01/18 Time of Evaluation: 09:30 - Subjective Subjective: Patient seen and examined at bedside, AAO x 3 at this time. Reports he has some abdominal discomfort and is hungry. Denies chest pain, SOB, weakness, nausea or vomiting. Discussed plan with patient. Objective - Vital Signs/Intake and Output Vital Signs (last 24 hours): Temp Pulse Resp BP Pulse Ox 97.6 F 63 20 129/65 100 04/01/18 08:00 04/01/18 08:00 04/01/18 08:00 04/01/18 08:00 04/01/18 08:00 Intake and Output: 04/01/18 04/01/18 06:59 18:59 Intake Total 285 Output Total 1100 Balance -815 - Medications Medications: Current Medications Atorvastatin Calcium (Lipitor) 10 mg PO HS [facility] Last Admin: 03/31/18 21:11 Dose: 10 mg Docusate Sodium (Colace) 100 mg PO DAILY [facility] Last Admin: 03/31/18 10:50 Dose: 100 mg Heparin Sodium/Dextrose (Heparin 25,000 Units/250ml In D5w) 25,000 units in 250 mls @ 6.532 mls/hr IV .Q24H [facility]; Protocol Last Titration: 04/01/18 05:55 Dose: 6.59 unit/kg/hr, 3.587 mls/hr Levothyroxine Sodium (Synthroid) 75 mcg PO DAILY@0630 [facility] Last Admin: 03/31/18 06:14 Dose: 75 mcg Losartan Potassium (Cozaar) 25 mg PO DAILY [facility] Last Admin: 03/31/18 10:50 Dose: 25 mg Metoprolol Succinate (Toprol Xl) 25 mg PO DAILY [facility] Last Admin: 03/31/18 13:23 Dose: 25 mg Nitroglycerin (Nitro-Bid 2% Oint) 1 ea TOP Q4 PRN PRN Reason: chest pain Pantoprazole Sodium (Protonix Inj) 40 mg IVP DAILY [facility] Last Admin: 03/31/18 10:50 Dose: 40 mg Phenol/Menthol (Phenaseptic 1.4% Throat [place]) 1 spry MT Q2 PRN PRN Reason: throat pain Last Admin: 03/31/18 21:10 Dose: 1 spr Polyethylene Glycol (Miralax) 17 gm PO DAILY [facility] Sucralfate (Carafate Oral Susp) 1 gm PO BID [facility] Last Admin: 03/31/18 18:48 Dose: 1 gm Temazepam (Restoril) 30 mg PO HS [facility] Last Admin: 03/31/18 23:19 Dose: 30 mg - Labs Labs: 04/01/18 05:00 04/01/18 05:00 PT 16.7 Seconds (9.8-13.1) H D 04/01/18 05:00 INR 1.5 04/01/18 05:00 APTT 46.2 Seconds (25.6-37.1) H 04/01/18 05:00 - Constitutional Appears: No Acute Distress - Head Exam Head Exam: ATRAUMATIC, NORMOCEPHALIC - Eye Exam Eye Exam: EOMI - ENT Exam ENT Exam: Mucous Membranes Moist - Respiratory Exam Respiratory Exam: NORMAL BREATHING PATTERN - Cardiovascular Exam Cardiovascular Exam: +S1, +S2. absent: Gallop - GI/Abdominal Exam GI & Abdominal Exam: Soft, Normal Bowel Sounds - Extremities Exam Extremities Exam: absent: Calf Tenderness, Pedal Edema - Neurological Exam Neurological Exam: Alert, Awake, Oriented x3 Assessment and Plan - Assessment and Plan (Free Text) Assessment: 87 yr old M admitted for ACS and EKG findings for lateral wall ischemia with significant PMHx including CAD (s/p CABG at [facility] more than 3 yrs ago), A-fib, pacemaker placement, hypothyroidism, BPH, NIDDM type 2. Dr. Limon consulted, plan is for catheterization today, in meantime continue heparin drip. Patient is hemodynamically stable at this time. Plan: 1. Acute Coronary Syndrome -chest pain improved, continue cardiac monitoring -Cardiology consult - Dr. Limon: heparin drip per normogram and cardiac cath today -troponin negative x 3 -03/30/17: Echo LVEF 55-60%, PPM lead noted in right ventricle, -Nitropaste 2% TOP Q4 PRN for chest pain -patient is NPO for cath 2. Coronary Artery Disease/Hypertension -chronic -Lipid panel TG 46, chol 130, LDL 57, HDL 72, CMP, Mg, Phos, B12 all within normal limit, proBNP normal -continue atorvastatin 10mg PO QHS, metoprolol succinate 25mg PO QD, Losartan 25mg PO QD 3. Atrial Fibrillation -chronic, controlled -Has pacemaker -INR 1.5 today, Hold warfarin, give vitamin K 10 mg PO once as plan is for cath today and patient is on heparin drip 4. GERD -chronic, uncontrolled -Protonix 40mg PO QD -referral to GI as outpatient 5. Hypothyroidism -chronic, controlled, TSH 1.13 -continue Levothyroxine 75 mcg PO QD 6. Anxiety/Depression -chronic, controlled -continue temazepam 30mg PO QHS 7. Constipation -chronic, controlled -Colace 100mg PO QD 8. NIDDM Type 2 -chronic, controlled without medication -03/31/18: HbA1c 6.8 9. Diet and GI proph -Pureed modified consistency, per patient has trouble with regular bite size food 10. DVT prophylaxis - patient is on heparin drip
[2018-04-01] MEDS: Sucralfate 1 gm/10 ml Oral Susp UD PO SCH ×2 (10:08→17:18)
[2018-04-01] MEDS: Metoprolol Succinate 25 mg XL Tab PO SCH (10:08)
[2018-04-01] MEDS: Levothyroxine 75 MCG TAB PO SCH (10:09)
[2018-04-01] MEDS: POLYETHYLENE GLYCOL 3350 17 GM/Dose PACKET PO SCH (10:10)
[2018-04-01 12:33] LABS: INR 1.3; PARTIAL THROMBOPLASTIN TIME 52.5 Seconds (25.6-37.1); PROTHROMBIN TIME 14.4 Seconds (9.8-13.1)
--- NOTE | 2018-04-01 12:33 | CP.PCM.CON ---
<Christiano Holguin - Last Filed: 04/01/18 17:04> History of Present Illness - History of Present Illness History of Present Illness: Christiano Holguin DO PGY1 - Internal Medicine [employer] - Cardiology Consult Note for Dr. Limon. Patient is a 87M hx CAD (s/p CABG at [facility] more than 3 yrs ago), A-fib, pacemaker placement, hypothyroidism, BPH, diabetes mellitus type 2 (last known A1c July 2017 6.6), dysphasia, anxiety who initially came in w/ complaints of chest pain w/ pain radiating to his neck. At time of evaluation patient reports he came to hospital for complaints of abodminal pain and dizziness; Currently patient denies complaints of chest pain, SOB or palpitations. However on further evaluation, Patient reports that he does get pre-syncopal syndromes w/ exertion reports symptoms worsen w/ increasing exertion symptoms have been new onset over the past few months; denies similar symptoms during the summer; no complaints of dizziness at rest. Patient reports he slows his pace down to resolve his symptoms. Patient is agreeable for stress test at this time Patient is agreeable for cardiac cath if stress test findings are positive Upon ROS only complaining of LUQ and LLQ abd pain; Remainder 12 system ROS is otherwise negative Design Studio Consultant: Dr. Shelley PMH: as above Review of Systems - Review of Systems All systems: reviewed and no additional remarkable complaints except Review of Systems: as per HPI Past Patient History - Infectious Disease Hx of Infectious Diseases: None - Tetanus Immunizations Tetanus Immunization: Unknown - Past Medical History & Family History Past Medical History?: Yes - Past Social History Smoking Status: Former Smoker Alcohol: None Drugs: Denies Home Situation {Lives}: Alone - CARDIAC Hx Hypercholesterolemia: Yes Hx Hypertension: Yes - PULMONARY Hx Respiratory Disorders: No - NEUROLOGICAL Hx Neurological Disorder: No - HEENT Hx HEENT Problems: No - RENAL Hx Chronic Kidney Disease: No - ENDOCRINE/METABOLIC Hx Hypothyroidism: Yes - HEMATOLOGICAL/ONCOLOGICAL Hx Human Immunodeficiency Virus (HIV): No - INTEGUMENTARY Hx Dermatological Problems: No - MUSCULOSKELETAL/RHEUMATOLOGICAL Hx Arthritis: Yes - GASTROINTESTINAL Hx Gastrointestinal Disorders: Yes Hx Constipation: Yes - GENITOURINARY/GYNECOLOGICAL Hx Genitourinary Disorders: Yes Hx Prostate Problems: Yes - PSYCHIATRIC Hx Anxiety: Yes Hx Depression: Yes Hx Substance Use: No - SURGICAL HISTORY Hx Coronary Artery Bypass Graft: Yes - ANESTHESIA Hx Anesthesia: Yes Hx Anesthesia Reactions: No Hx Malignant Hyperthermia: No Meds Allergies/Adverse Reactions: Allergies Allergy/AdvReac Type Severity Reaction Status Date / Time No Known Allergies Allergy Verified 03/30/18 10:54 - Medications Medications: Current Medications Atorvastatin Calcium (Lipitor) 10 mg PO HS [facility] Last Admin: 03/31/18 21:11 Dose: 10 mg Docusate Sodium (Colace) 100 mg PO DAILY [facility] Last Admin: 04/01/18 10:09 Dose: 100 mg Heparin Sodium/Dextrose (Heparin 25,000 Units/250ml In D5w) 25,000 units in 250 mls @ 6.532 mls/hr IV .Q24H [facility]; Protocol Last Titration: 04/01/18 05:55 Dose: 6.59 unit/kg/hr, 3.587 mls/hr Levothyroxine Sodium (Synthroid) 75 mcg PO DAILY@0630 [facility] Last Admin: 04/01/18 10:09 Dose: 75 mcg Losartan Potassium (Cozaar) 25 mg PO DAILY [facility] Last Admin: 04/01/18 10:08 Dose: 25 mg Metoprolol Succinate (Toprol Xl) 25 mg PO DAILY [facility] Last Admin: 04/01/18 10:08 Dose: 25 mg Nitroglycerin (Nitro-Bid 2% Oint) 1 ea TOP Q4 PRN PRN Reason: chest pain Pantoprazole Sodium (Protonix Inj) 40 mg IVP DAILY [facility] Last Admin: 04/01/18 10:10 Dose: 40 mg Phenol/Menthol (Phenaseptic 1.4% Throat [place]) 1 spry MT Q2 PRN PRN Reason: throat pain Last Admin: 03/31/18 21:10 Dose: 1 spr Polyethylene Glycol (Miralax) 17 gm PO DAILY [facility] Last Admin: 04/01/18 10:10 Dose: 17 gm Sucralfate (Carafate Oral Susp) 1 gm PO BID [facility] Last Admin: 04/01/18 10:08 Dose: 1 gm Temazepam (Restoril) 30 mg PO HS [facility] Last Admin: 03/31/18 23:19 Dose: 30 mg Physical Exam - Constitutional Appears: Well, Non-toxic, No Acute Distress - Head Exam Head Exam: ATRAUMATIC, NORMOCEPHALIC - Eye Exam Eye Exam: EOMI, Normal appearance, PERRL - Respiratory Exam Respiratory Exam: Clear to Auscultation Bilateral, NORMAL BREATHING PATTERN - Cardiovascular Exam Cardiovascular Exam: RRR, +S1, +S2 - GI/Abdominal Exam GI & Abdominal Exam: Normal Bowel Sounds, Soft, Tenderness (LUQ/LLQ ) - Rectal Exam Rectal Exam: NORMAL INSPECTION - Extremities Exam Additional comments: Pedal pulses diminished bilaterally LE warm; Cap refill <2 sec; - Neurological Exam Neurological exam: Alert, Oriented x3 - Psychiatric Exam Psychiatric exam: Normal Affect, Normal Mood - Skin Skin Exam: Dry, Intact, Normal Color, Warm Results - Vital Signs Recent Vital Signs: Last Vital Signs Temp 98.6 F 04/01/18 12:00 Pulse 64 04/01/18 12:00 Resp 19 04/01/18 12:00 BP 115/61 04/01/18 12:00 Pulse Ox 100 04/01/18 12:00 - Labs Result Diagrams: 04/01/18 05:00 04/01/18 05:00 Labs: Laboratory Results - last 24 hr 03/31/18 03/31/18 03/31/18 05:30 16:22 18:30 WBC RBC Hgb Hct MCV MCH MCHC RDW Plt Count PT 22.2 H D INR 2.0 APTT 49.8 H Sodium Potassium Chloride Carbon Dioxide Anion Gap BUN Creatinine Est GFR ( Amer) Est GFR (Non-Af Amer) POC Glucose (mg/dL) 113 H Random Glucose Hemoglobin A1c 6.8 H Calcium 04/01/18 04/01/18 04/01/18 00:30 05:00 05:00 WBC 5.8 RBC 4.58 Hgb 13.5 Hct 40.0 MCV 87.5 D MCH 29.6 MCHC 33.8 RDW 15.1 H Plt Count 144 PT 16.7 H D INR 1.5 APTT 49.9 H 46.2 H Sodium Potassium Chloride Carbon Dioxide Anion Gap BUN Creatinine Est GFR ( Amer) Est GFR (Non-Af Amer) POC Glucose (mg/dL) Random Glucose Hemoglobin A1c Calcium 04/01/18 04/01/18 05:00 11:18 WBC RBC Hgb Hct MCV MCH MCHC RDW Plt Count PT INR APTT Sodium 138 Potassium 4.0 Chloride 98 Carbon Dioxide 29 Anion Gap 15 BUN 20 Creatinine 1.0 Est GFR ( Amer) > 60 Est GFR (Non-Af Amer) > 60 POC Glucose (mg/dL) 210 H Random Glucose 114 H Hemoglobin A1c Calcium 9.3 Assessment & Plan (1) ACS (acute coronary syndrome) Status: Acute (2) Near syncope Status: Acute (3) Abdominal pain Status: Acute (4) Atrial fibrillation with RVR Status: Acute - Assessment and Plan (Free Text) Assessment: This is a 87M hx CAD (s/p CABG at [facility] more than 3 yrs ago), A-fib, pacemaker placement, hypothyroidism, BPH, diabetes mellitus type 2 (last known A1c July 2017 6.6), dysphasia, anxiety; who initially presented complaining of chest pain with radiation to his neck during ED evaluation. Cardiology was consulted for evaluation of chest pain and acute coronary syndrome. Original EKG changes were concerning for lateral ischemia and upon evaluation, patient was found to have new onset presyncopal symptoms which worsened w/ exertion. New EKG shows Atrial- Sensed Ventricular-Paced rhythm. 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 Spencer who agrees Ischemic evaluation is warranted given new onset symptoms. Plan: Patient is agreeable for stress test - 04/02 AM NPO past MN except meds; all meds OK Will continue therapeutic heparin at this time; HOLD home coumadin Start ASA 81 QD C/w Lipitor 10 QD C/w Cozaar 25 QD C/w Metoprolol 25 QD <John Limon - Last Filed: 04/01/18 17:47> Meds - Medications Medications: Current Medications Aspirin (Aspirin Chewable) 81 mg PO DAILY [facility] Atorvastatin Calcium (Lipitor) 10 mg PO HS [facility] Last Admin: 03/31/18 21:11 Dose: 10 mg Docusate Sodium (Colace) 100 mg PO DAILY [facility] Last Admin: 04/01/18 10:09 Dose: 100 mg Heparin Sodium/Dextrose (Heparin 25,000 Units/250ml In D5w) 25,000 units in 250 mls @ 6.532 mls/hr IV .Q24H [facility]; Protocol Last Admin: 04/01/18 17:21 Dose: 6.59 unit/kg/hr, 3.587 mls/hr Levothyroxine Sodium (Synthroid) 75 mcg PO DAILY@0630 [facility] Last Admin: 04/01/18 10:09 Dose: 75 mcg Losartan Potassium (Cozaar) 25 mg PO DAILY [facility] Last Admin: 04/01/18 10:08 Dose: 25 mg Metoprolol Succinate (Toprol Xl) 25 mg PO DAILY [facility] Last Admin: 04/01/18 10:08 Dose: 25 mg Nitroglycerin (Nitro-Bid 2% Oint) 1 ea TOP Q4 PRN PRN Reason: chest pain Pantoprazole Sodium (Protonix Inj) 40 mg IVP DAILY [facility] Last Admin: 04/01/18 10:10 Dose: 40 mg Phenol/Menthol (Phenaseptic 1.4% Throat [place]) 1 spry MT Q2 PRN PRN Reason: throat pain Last Admin: 03/31/18 21:10 Dose: 1 spr Polyethylene Glycol (Miralax) 17 gm PO DAILY [facility] Last Admin: 04/01/18 10:10 Dose: 17 gm Sucralfate (Carafate Oral Susp) 1 gm PO BID [facility] Last Admin: 04/01/18 17:18 Dose: 1 gm Temazepam (Restoril) 30 mg PO HS [facility] Last Admin: 03/31/18 23:19 Dose: 30 mg Results - Vital Signs Recent Vital Signs: Last Vital Signs Temp 98 F 04/01/18 16:00 Pulse 71 04/01/18 16:00 Resp 15 04/01/18 16:00 BP 87/60 L 04/01/18 16:00 Pulse Ox 90 L 04/01/18 16:00 - Labs Result Diagrams: 04/01/18 05:00 04/01/18 05:00 Labs: Laboratory Results - last 24 hr 03/31/18 04/01/18 04/01/18 18:30 00:30 05:00 WBC 5.8 RBC 4.58 Hgb 13.5 Hct 40.0 MCV 87.5 D MCH 29.6 MCHC 33.8 RDW 15.1 H Plt Count 144 PT 22.2 H D INR 2.0 APTT 49.8 H 49.9 H Sodium Potassium Chloride Carbon Dioxide Anion Gap BUN Creatinine Est GFR ( Amer) Est GFR (Non-Af Amer) POC Glucose (mg/dL) Random Glucose Calcium 04/01/18 04/01/18 04/01/18 05:00 05:00 11:18 WBC RBC Hgb Hct MCV MCH MCHC RDW Plt Count PT 16.7 H D INR 1.5 APTT 46.2 H Sodium 138 Potassium 4.0 Chloride 98 Carbon Dioxide 29 Anion Gap 15 BUN 20 Creatinine 1.0 Est GFR ( Amer) > 60 Est GFR (Non-Af Amer) > 60 POC Glucose (mg/dL) 210 H Random Glucose 114 H Calcium 9.3 04/01/18 11:30 WBC RBC Hgb Hct MCV MCH MCHC RDW Plt Count PT 14.4 H INR 1.3 APTT 52.5 H Sodium Potassium Chloride Carbon Dioxide Anion Gap BUN Creatinine Est GFR ( Amer) Est GFR (Non-Af Amer) POC Glucose (mg/dL) Random Glucose Calcium Attending/Attestation - Attestation I have personally seen and examined this patient.: Yes I have fully participated in the care of the patient.: Yes I have reviewed all pertinent clinical information: Yes Notes (Text): 04/01/18 17:46 cont with IV heparin asa, bb, statins plan for stress test in am
[2018-04-01] MEDS: Heparin 25,000units in D5W 25,000 UNITS/250 ML BAG IV SCH (17:21)
--- NOTE | 2018-04-01 19:25 | PQF ---
PROVIDER RESPONSE TEXT: Underweight , BMI 18.5 REVIEWER QUERY TEXT: Nutritional Deficiency Clarification There are clinical indicators and dietary orders noted in the Medical Record regarding nutritional st atus. Please provide a nutritional diagnosis if able to further specify. EMR has the patient listed as 5' 7", weight of 118 pounds with a BMI of 18.5. Cable Television Technician consult: with a BMI of 18.4 ( Underweight < 18.5 ) + weight loss, Recommends Glucerna Shake and swallow evaluation for patient reporting swallowing difficulty recently.( approximately 2 months ago) The patient's Clinical Indicators include: EMR has the patient listed as 5' 7", weight of 118 pounds with a BMI of 18.5. Cable Television Technician consult: with a BMI of 18.4 ( Underweight < 18.5 ) + weight loss, Recommends Glucerna Shake and swallow evaluation for patient reporting swallowing difficulty recently. Query created by: Nicole Fisher on 04/01/2018 8:49 AM Electronically signed by: Natalia Dixon MD 04/01/2018 7:21 PM
--- NOTE | 2018-04-01 21:08 | CARD ---
APPROVED REPORT Date of service: 03/31/2018 EKG Measurement Heart [id number] [id number] <Conclusion> Atrial-sensed ventricular-paced rhythm with prolonged AV conduction T wave abnormality, consider anterior ischemia Abnormal ECG
[2018-04-02 05:25] LABS: HEMOGLOBIN 13.7 g/dL (12.0-18.0); MEAN CELL VOLUME 88.5 fl (80.0-94.0); MEAN CORPUSCULAR HEMOGLOBIN 29.8 pg (27.0-31.0); MEAN CORPUSCULAR HGB CONC 33.7 g/dL (33.0-37.0); RBC 4.6 Mil/uL (4.40-5.90); RED CELL DISTRIBUTION WIDTH 14.6 % (11.5-14.5); WHITE BLOOD COUNT 8.1 K/uL (4.8-10.8)
[2018-04-02 05:34] LABS: BLOOD UREA NITROGEN 26 mg/dl (9-20); GFR NON-AFRICAN AMERICAN > 60
[2018-04-02 06:28] LABS: INR 1.1; PROTHROMBIN TIME 12.9 Seconds (9.8-13.1)
[2018-04-02] MEDS: Levothyroxine 75 MCG TAB PO SCH (06:50)
[2018-04-02] MEDS: Sucralfate 1 gm/10 ml Oral Susp UD PO SCH ×2 (08:35→17:12)
[2018-04-02] MEDS: Metoprolol Succinate 25 mg XL Tab PO SCH (08:36)
--- NOTE | 2018-04-02 09:55 | CP.PCM.PN ---
<Christiano Holguin - Last Filed: 04/02/18 17:36> Subjective - Date & Time of Evaluation Date of Evaluation: 04/02/18 Time of Evaluation: 16:00 - Subjective Subjective: Christiano Holguin DO PGY1 - Internal Medicine Urology Nurse - Cardiology Note for Dr. Limon Nursing notes report no acute events overnight. Patient is to undergo pharmacologic stress testing today. Patient has remained NPO overnight for stress test. Stress test was cancelled due to performing barrel cleaner noting wall motion abnormality. Patient was explained echocardiogram shows some abnormal wall motion abnormality and that he will ultimately require cardiac cath. Patient was explained procedure can be performed by Dr. Limon or his outpatient barrel cleaner. Patient elected to have procedure performed by Dr. Limon while admitted at this time. Patient denies any complaints of chest pain, palpitations, shortness of breath; remainder of 12 Point review of systems is otherwise negative. Objective - Vital Signs/Intake and Output Vital Signs (last 24 hours): Temp Pulse Resp BP Pulse Ox 98 F 75 23 112/58 L 100 04/02/18 07:51 04/02/18 08:36 04/02/18 07:51 04/02/18 08:36 04/02/18 07:51 Intake and Output: 04/02/18 04/02/18 06:59 18:59 Intake Total 14 Balance 14 - Medications Medications: Current Medications Aspirin (Aspirin Chewable) 81 mg PO DAILY [facility] Last Admin: 04/02/18 08:36 Dose: 81 mg Atorvastatin Calcium (Lipitor) 10 mg PO HS [facility] Last Admin: 04/01/18 21:14 Dose: 10 mg Docusate Sodium (Colace) 100 mg PO DAILY [facility] Last Admin: 04/02/18 08:35 Dose: 100 mg Heparin Sodium/Dextrose (Heparin 25,000 Units/250ml In D5w) 25,000 units in 250 mls @ 6.532 mls/hr IV .Q24H [facility]; Protocol Last Admin: 04/01/18 17:21 Dose: 6.59 unit/kg/hr, 3.587 mls/hr Levothyroxine Sodium (Synthroid) 75 mcg PO DAILY@0630 [facility] Last Admin: 04/02/18 06:50 Dose: 75 mcg Losartan Potassium (Cozaar) 25 mg PO DAILY [facility] Last Admin: 04/02/18 08:35 Dose: 25 mg Metoprolol Succinate (Toprol Xl) 25 mg PO DAILY [facility] Last Admin: 04/02/18 08:36 Dose: 25 mg Nitroglycerin (Nitro-Bid 2% Oint) 1 ea TOP Q4 PRN PRN Reason: chest pain Pantoprazole Sodium (Protonix Inj) 40 mg IVP DAILY [facility] Last Admin: 04/02/18 08:37 Dose: 40 mg Phenol/Menthol (Phenaseptic 1.4% Throat [place]) 1 spry MT Q2 PRN PRN Reason: throat pain Last Admin: 03/31/18 21:10 Dose: 1 spr Polyethylene Glycol (Miralax) 17 gm PO DAILY [facility] Last Admin: 04/01/18 10:10 Dose: 17 gm Sucralfate (Carafate Oral Susp) 1 gm PO BID [facility] Last Admin: 04/02/18 08:35 Dose: 1 gm Temazepam (Restoril) 30 mg PO HS [facility] Last Admin: 04/01/18 21:14 Dose: 30 mg - Labs Labs: 04/02/18 04:30 04/02/18 04:30 PT 12.9 Seconds (9.8-13.1) 04/02/18 04:30 INR 1.1 04/02/18 04:30 APTT 51.5 Seconds (25.6-37.1) H 04/02/18 04:30 Physical Exam - Constitutional Appears: Well, Non-toxic, No Acute Distress - Head Exam Head Exam: ATRAUMATIC, NORMOCEPHALIC - Eye Exam Eye Exam: EOMI, Normal appearance, PERRL - Respiratory Exam Respiratory Exam: Clear to Auscultation Bilateral, NORMAL BREATHING PATTERN - Cardiovascular Exam Cardiovascular Exam: RRR, +S1, +S2 - GI/Abdominal Exam GI & Abdominal Exam: Normal Bowel Sounds, Soft, Tenderness (LUQ/LLQ ) - Rectal Exam Rectal Exam: NORMAL INSPECTION - Extremities Exam Additional comments: Pedal pulses diminished bilaterally LE warm; Cap refill <2 sec; - Neurological Exam Neurological exam: Alert, Oriented x3 - Psychiatric Exam Psychiatric exam: Normal Affect, Normal Mood - Skin Skin Exam: Dry, Intact, Normal Color, Warm Assessment and Plan (1) ACS (acute coronary syndrome) Status: Acute (2) Near syncope Status: Acute (3) Abdominal pain Status: Acute (4) Atrial fibrillation with RVR Status: Acute - Assessment and Plan (Free Text) Plan: Echo reviewed by Dr. Kern concerning for wall motional abnormality; Patient agreeable for cardiac cath within [employer] system Will Cath patient tomorrow morning (04/03) at [facility] Stop Heparin 04/03 @ 0400 Load Plavix 300mg once today Patient to be NPO past MN except meds Continue patient on aspirin 81 daily, Lipitor 10 daily, cozaar 25 daily, Metroprolol 25 daily. <John Limon - Last Filed: 04/04/18 19:06> Objective - Vital Signs/Intake and Output Vital Signs (last 24 hours): Temp Pulse Resp BP Pulse Ox 98.3 F 75 18 114/56 L 96 04/04/18 15:46 04/04/18 15:46 04/04/18 15:46 04/04/18 15:46 04/04/18 15:46 - Medications Medications: Current Medications Acetaminophen (Tylenol 325mg Tab) 650 mg PO Q6 PRN PRN Reason: Other Aspirin (Aspirin Chewable) 81 mg PO DAILY [facility] Last Admin: 04/04/18 08:51 Dose: 81 mg Atorvastatin Calcium (Lipitor) 10 mg PO HS [facility] Last Admin: 04/03/18 22:15 Dose: 10 mg Docusate Sodium (Colace) 100 mg PO DAILY [facility] Last Admin: 04/04/18 08:48 Dose: 100 mg Heparin Sodium/Dextrose (Heparin 25,000 Units/250ml In D5w) 25,000 units in 250 mls @ 8 mls/hr IV .Q24H [facility]; Protocol Last Admin: 04/04/18 03:26 Dose: 8 mls/hr Levothyroxine Sodium (Synthroid) 75 mcg PO DAILY@0630 [facility] Last Admin: 04/04/18 05:58 Dose: 75 mcg Losartan Potassium (Cozaar) 25 mg PO DAILY [facility] Last Admin: 04/04/18 08:51 Dose: 25 mg Metoprolol Succinate (Toprol Xl) 25 mg PO DAILY [facility] Last Admin: 04/04/18 08:48 Dose: 25 mg Morphine Sulfate (Morphine) 2 mg IVP Q4 PRN PRN Reason: Pain, severe (8-10) Last Admin: 04/03/18 22:15 Dose: 2 mg Nitroglycerin (Nitro-Bid 2% Oint) 1 ea TOP Q4 PRN PRN Reason: chest pain Pantoprazole Sodium (Protonix Inj) 40 mg IVP DAILY [facility] Last Admin: 04/04/18 08:49 Dose: 40 mg Phenol/Menthol (Phenaseptic 1.4% Throat [place]) 1 spry MT Q2 PRN PRN Reason: throat pain Last Admin: 04/02/18 23:36 Dose: 1 spr Polyethylene Glycol (Miralax) 17 gm PO DAILY [facility] Last Admin: 04/04/18 08:50 Dose: 17 gm Sucralfate (Carafate Oral Susp) 1 gm PO BID [facility] Last Admin: 04/04/18 17:36 Dose: 1 gm Temazepam (Restoril) 30 mg PO HS [facility] Last Admin: 04/03/18 22:57 Dose: 30 mg - Labs Labs: 04/04/18 11:00 04/04/18 11:00 PT 13.6 Seconds (9.8-13.1) H 04/04/18 18:53 INR 1.2 04/04/18 18:53 APTT 66.4 Seconds (25.6-37.1) H 04/04/18 18:53 Attending/Attestation - Attestation I have personally seen and examined this patient.: Yes I have fully participated in the care of the patient.: Yes I have reviewed all pertinent clinical information, including history, physical exam and plan: Yes
--- NOTE | 2018-04-02 11:31 | CP.PCM.PN ---
Subjective - Date & Time of Evaluation Date of Evaluation: 04/02/18 Time of Evaluation: 11:28 - Subjective Subjective: Patient was seen in the Cardiology stress test room for a Lexiscan study due to admission with chest pain. I looked at his Echocardiogram for this admission and compared with an Echocardiogram done in 2017. There is a significant change on this admission study. Dr Limon was notfifed and I discussed the case with him. He needs a Cardiac cathetrization study. The Lexiscan was cancelled. Objective - Vital Signs/Intake and Output Vital Signs (last 24 hours): Temp Pulse Resp BP Pulse Ox 98 F 65 22 114/55 L 98 04/02/18 07:51 04/02/18 10:00 04/02/18 10:00 04/02/18 10:00 04/02/18 10:00 Intake and Output: 04/02/18 04/02/18 06:59 18:59 Intake Total 14 26 Balance 14 26 - Medications Medications: Current Medications Aspirin (Aspirin Chewable) 81 mg PO DAILY [facility] Last Admin: 04/02/18 08:36 Dose: 81 mg Atorvastatin Calcium (Lipitor) 10 mg PO HS [facility] Last Admin: 04/01/18 21:14 Dose: 10 mg Docusate Sodium (Colace) 100 mg PO DAILY [facility] Last Admin: 04/02/18 08:35 Dose: 100 mg Heparin Sodium/Dextrose (Heparin 25,000 Units/250ml In D5w) 25,000 units in 250 mls @ 6.532 mls/hr IV .Q24H [facility]; Protocol Last Admin: 04/01/18 17:21 Dose: 6.59 unit/kg/hr, 3.587 mls/hr Levothyroxine Sodium (Synthroid) 75 mcg PO DAILY@0630 [facility] Last Admin: 04/02/18 06:50 Dose: 75 mcg Losartan Potassium (Cozaar) 25 mg PO DAILY [facility] Last Admin: 04/02/18 08:35 Dose: 25 mg Metoprolol Succinate (Toprol Xl) 25 mg PO DAILY [facility] Last Admin: 04/02/18 08:36 Dose: 25 mg Nitroglycerin (Nitro-Bid 2% Oint) 1 ea TOP Q4 PRN PRN Reason: chest pain Pantoprazole Sodium (Protonix Inj) 40 mg IVP DAILY [facility] Last Admin: 04/02/18 08:37 Dose: 40 mg Phenol/Menthol (Phenaseptic 1.4% Throat [place]) 1 spry MT Q2 PRN PRN Reason: throat pain Last Admin: 03/31/18 21:10 Dose: 1 spr Polyethylene Glycol (Miralax) 17 gm PO DAILY [facility] Last Admin: 04/01/18 10:10 Dose: 17 gm Sucralfate (Carafate Oral Susp) 1 gm PO BID [facility] Last Admin: 04/02/18 08:35 Dose: 1 gm Temazepam (Restoril) 30 mg PO HS [facility] Last Admin: 04/01/18 21:14 Dose: 30 mg - Labs Labs: 04/02/18 04:30 04/02/18 04:30 PT 12.9 Seconds (9.8-13.1) 04/02/18 04:30 INR 1.1 04/02/18 04:30 APTT 51.5 Seconds (25.6-37.1) H 04/02/18 04:30
[2018-04-02] MEDS: POLYETHYLENE GLYCOL 3350 17 GM/Dose PACKET PO SCH (15:18)
--- NOTE | 2018-04-02 18:40 | CP.PCM.PN ---
Subjective - Date & Time of Evaluation Date of Evaluation: 04/02/18 Time of Evaluation: 11:00 - Subjective Subjective: Patient seen and examined at bedside, in no acute distress. AAO x3. Denies chest pain, SOB, weakness or dizziness. Stress test today cancelled due to wall motion abnormality on repeat echocardiogram. Plan is for catheterization tomorrow. Patient is on heparin drip. Objective - Vital Signs/Intake and Output Vital Signs (last 24 hours): Temp Pulse Resp BP Pulse Ox 97.2 F L 60 17 101/53 L 97 04/02/18 16:00 04/02/18 16:00 04/02/18 16:00 04/02/18 16:00 04/02/18 16:00 Intake and Output: 04/02/18 04/02/18 06:59 18:59 Intake Total 14 39 Output Total 525 Balance 14 -486 - Medications Medications: Current Medications Acetaminophen (Tylenol 325mg Tab) 650 mg PO Q6 PRN PRN Reason: Pain, moderate (4-7) Last Admin: 04/02/18 12:18 Dose: 650 mg Aspirin (Aspirin Chewable) 81 mg PO DAILY [facility] Last Admin: 04/02/18 08:36 Dose: 81 mg Atorvastatin Calcium (Lipitor) 10 mg PO HS [facility] Last Admin: 04/01/18 21:14 Dose: 10 mg Docusate Sodium (Colace) 100 mg PO DAILY [facility] Last Admin: 04/02/18 08:35 Dose: 100 mg Heparin Sodium/Dextrose (Heparin 25,000 Units/250ml In D5w) 25,000 units in 250 mls @ 6.532 mls/hr IV .Q24H [facility]; Protocol Last Admin: 04/01/18 17:21 Dose: 6.59 unit/kg/hr, 3.587 mls/hr Levothyroxine Sodium (Synthroid) 75 mcg PO DAILY@0630 [facility] Last Admin: 04/02/18 06:50 Dose: 75 mcg Losartan Potassium (Cozaar) 25 mg PO DAILY [facility] Last Admin: 04/02/18 08:35 Dose: 25 mg Metoprolol Succinate (Toprol Xl) 25 mg PO DAILY [facility] Last Admin: 04/02/18 08:36 Dose: 25 mg Nitroglycerin (Nitro-Bid 2% Oint) 1 ea TOP Q4 PRN PRN Reason: chest pain Pantoprazole Sodium (Protonix Inj) 40 mg IVP DAILY [facility] Last Admin: 04/02/18 08:37 Dose: 40 mg Phenol/Menthol (Phenaseptic 1.4% Throat [place]) 1 spry MT Q2 PRN PRN Reason: throat pain Last Admin: 03/31/18 21:10 Dose: 1 spr Polyethylene Glycol (Miralax) 17 gm PO DAILY [facility] Last Admin: 04/02/18 15:18 Dose: 17 gm Sucralfate (Carafate Oral Susp) 1 gm PO BID [facility] Last Admin: 04/02/18 17:12 Dose: 1 gm Temazepam (Restoril) 30 mg PO HS [facility] Last Admin: 04/01/18 21:14 Dose: 30 mg - Labs Labs: 04/02/18 04:30 04/02/18 04:30 PT 12.9 Seconds (9.8-13.1) 04/02/18 04:30 INR 1.1 04/02/18 04:30 APTT 51.5 Seconds (25.6-37.1) H 04/02/18 04:30 - Constitutional Appears: No Acute Distress - Head Exam Head Exam: ATRAUMATIC, NORMOCEPHALIC - Eye Exam Eye Exam: EOMI - ENT Exam ENT Exam: Mucous Membranes Moist - Respiratory Exam Respiratory Exam: NORMAL BREATHING PATTERN. absent: Rhonchi, Wheezes - Cardiovascular Exam Cardiovascular Exam: +S1, +S2. 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 Stress test cancelled due to wall motion abnormality seen on repeat echocardiogram. Dr. Limon on consult, plan for catheterization tomorrow. Patient in agreement with plan. in meantime continue heparin drip. Patient is hemodynamically stable at this time. Plan: 1. Acute Coronary Syndrome -chest pain improved, continue cardiac monitoring -Cardiology consult - Dr. Limon: heparin drip per normogram and cardiac cath tomorrow -troponin negative x 3 -03/30/17: Echo LVEF 55-60%, PPM lead noted in right ventricle -Nitropaste 2% TOP Q4 PRN for chest pain -patient is NPO for cath 2. Coronary Artery Disease/Hypertension -chronic -Lipid panel TG 46, chol 130, LDL 57, HDL 72, CMP, Mg, Phos, B12 all within normal limit, proBNP normal -continue atorvastatin 10mg PO QHS, metoprolol succinate 25mg PO QD, Losartan 25mg PO QD 3. Atrial Fibrillation -chronic, controlled -Has pacemaker -INR 1.1 today, Hold warfarin, give vitamin K 10 mg PO once as plan is for cath today and patient is on heparin drip 4. GERD -chronic, uncontrolled -Protonix 40mg PO QD -referral to GI as outpatient 5. Hypothyroidism -chronic, controlled, TSH 1.13 -continue Levothyroxine 75 mcg PO QD 6. Anxiety/Depression -chronic, controlled -continue temazepam 30mg PO QHS 7. Constipation -chronic, controlled -Colace 100mg PO QD 8. NIDDM Type 2 -chronic, controlled without medication -03/31/18: HbA1c 6.8 9. Diet and GI proph -Pureed modified consistency, per patient has trouble with regular bite size food 10. DVT prophylaxis - patient is on heparin drip
[2018-04-02] MEDS: Morphine 4 MG/ML VIAL IVP PRN (22:52)
[2018-04-02] MEDS: Phenol 1.4% Throat Spray MT PRN (23:36)
[2018-04-03 05:31] LABS: HEMOGLOBIN 13.4 g/dL (12.0-18.0); MEAN CELL VOLUME 88.6 fl (80.0-94.0); MEAN CORPUSCULAR HEMOGLOBIN 29.4 pg (27.0-31.0); MEAN CORPUSCULAR HGB CONC 33.2 g/dL (33.0-37.0); RBC 4.55 Mil/uL (4.40-5.90); RED CELL DISTRIBUTION WIDTH 14.4 % (11.5-14.5); WHITE BLOOD COUNT 9.9 K/uL (4.8-10.8)
[2018-04-03 05:45] LABS: ALBUMIN 3.8 g/dL (3.5-5.0); ALT/SGPT 28 U/L (21-72); AST/SGOT 55 U/L (17-59); BLOOD UREA NITROGEN 28 mg/dl (9-20); GFR NON-AFRICAN AMERICAN > 60
[2018-04-03 05:46] LABS: INR 1.1; PROTHROMBIN TIME 12.7 Seconds (9.8-13.1)
[2018-04-03] MEDS: Levothyroxine 75 MCG TAB PO SCH (05:47)
[2018-04-03 05:49] LABS: PARTIAL THROMBOPLASTIN TIME 44.8 Seconds (25.6-37.1)
--- NOTE | 2018-04-03 07:30 | CP.PCM.PN ---
<Christiano Holguin - Last Filed: 04/03/18 16:40> Subjective - Date & Time of Evaluation Date of Evaluation: 04/03/18 Time of Evaluation: 16:40 - Subjective Subjective: Christiano Holguin DO PGY1 - Internal Medicine [employer] Director - Cardiology Note for Dr. Limon Patient seen and examined this morning at [facility] prior to cardiac catheterization nursing notes reviewed, patient has remained NPO overnight no acute events reported. Patient didn't complain of back pain 2 mg morphine IV administered overnight by on-call doctor. Patient vital signs reviewed, mildly hypotensive overnight however no signs of hemodynamic instability appreciate it, Upon review, lab work grossly unremarkable. Heparin was held this morning at 0400. Prior to procedure, all patient concerns and questions answered Objective - Vital Signs/Intake and Output Vital Signs (last 24 hours): Temp Pulse Resp BP Pulse Ox 97.9 F 70 20 98/55 L 98 04/02/18 20:00 04/03/18 06:00 04/03/18 06:00 04/03/18 06:00 04/03/18 06:00 Intake and Output: 04/03/18 04/03/18 06:59 18:59 Intake Total 319 Output Total 650 Balance -331 - Medications Medications: Current Medications Acetaminophen (Tylenol 325mg Tab) 650 mg PO Q6 PRN PRN Reason: Other Aspirin (Aspirin Chewable) 81 mg PO DAILY [facility] Last Admin: 04/02/18 08:36 Dose: 81 mg Atorvastatin Calcium (Lipitor) 10 mg PO HS [facility] Last Admin: 04/02/18 21:02 Dose: 10 mg Docusate Sodium (Colace) 100 mg PO DAILY [facility] Last Admin: 04/02/18 08:35 Dose: 100 mg Heparin Sodium/Dextrose (Heparin 25,000 Units/250ml In D5w) 25,000 units in 250 mls @ 6.532 mls/hr IV .Q24H [facility]; Protocol Last Titration: 04/03/18 04:00 Dose: 0 unit/kg/hr, 0 mls/hr Levothyroxine Sodium (Synthroid) 75 mcg PO DAILY@0630 [facility] Last Admin: 04/03/18 05:47 Dose: 75 mcg Losartan Potassium (Cozaar) 25 mg PO DAILY [facility] Last Admin: 04/02/18 08:35 Dose: 25 mg Metoprolol Succinate (Toprol Xl) 25 mg PO DAILY [facility] Last Admin: 04/02/18 08:36 Dose: 25 mg Morphine Sulfate (Morphine) 2 mg IVP Q4 PRN PRN Reason: Pain, severe (8-10) Last Admin: 04/02/18 22:52 Dose: 2 mg Nitroglycerin (Nitro-Bid 2% Oint) 1 ea TOP Q4 PRN PRN Reason: chest pain Pantoprazole Sodium (Protonix Inj) 40 mg IVP DAILY [facility] Last Admin: 04/02/18 08:37 Dose: 40 mg Phenol/Menthol (Phenaseptic 1.4% Throat [place]) 1 spry MT Q2 PRN PRN Reason: throat pain Last Admin: 04/02/18 23:36 Dose: 1 spr Polyethylene Glycol (Miralax) 17 gm PO DAILY [facility] Last Admin: 04/02/18 15:18 Dose: 17 gm Sucralfate (Carafate Oral Susp) 1 gm PO BID [facility] Last Admin: 04/02/18 17:12 Dose: 1 gm Temazepam (Restoril) 30 mg PO HS [facility] Last Admin: 04/02/18 23:21 Dose: 30 mg - Labs Labs: 04/03/18 04:30 04/03/18 04:30 PT 12.7 Seconds (9.8-13.1) 04/03/18 04:30 INR 1.1 04/03/18 04:30 APTT 44.8 Seconds (25.6-37.1) H 04/03/18 04:30 Physical Exam - Constitutional Appears: Well, Non-toxic, No Acute Distress - Head Exam Head Exam: ATRAUMATIC, NORMOCEPHALIC - Eye Exam Eye Exam: EOMI, Normal appearance, PERRL - Respiratory Exam Respiratory Exam: Clear to Auscultation Bilateral, NORMAL BREATHING PATTERN - Cardiovascular Exam Cardiovascular Exam: RRR, +S1, +S2 - GI/Abdominal Exam GI & Abdominal Exam: Normal Bowel Sounds, Soft, Tenderness (LUQ/LLQ ) - Rectal Exam Rectal Exam: NORMAL INSPECTION - Extremities Exam Additional comments: Pedal pulses diminished bilaterally LE warm; Cap refill <2 sec; - Neurological Exam Neurological exam: Alert, Oriented x3 - Psychiatric Exam Psychiatric exam: Normal Affect, Normal Mood - Skin Skin Exam: Dry, Intact, Normal Color, Warm Assessment and Plan (1) ACS (acute coronary syndrome) Status: Acute (2) Near syncope Status: Acute (3) Abdominal pain Status: Acute (4) Atrial fibrillation with RVR Status: Acute - Assessment and Plan (Free Text) Plan: Post cath orders placed; Can start bridging patient back to warfarin PT/PTT/INR ordered onced patient returns to [facility] Can resume Heparin drip at 12units/kg/hr; Can titrate up after PTT results obtained Can resume home warfarin regimen (Warfarin 2.5 QD) Heparin Should be DC'd onced patient can maintain INR 2-3 on warfarin Continue patient on aspirin 81 daily, Plavix 75 QD Lipitor 10 daily, cozaar 25 daily, Metroprolol 25 daily. <John Limon - Last Filed: 04/04/18 19:07> Objective - Vital Signs/Intake and Output Vital Signs (last 24 hours): Temp Pulse Resp BP Pulse Ox 98.3 F 75 18 114/56 L 96 04/04/18 15:46 04/04/18 15:46 04/04/18 15:46 04/04/18 15:46 04/04/18 15:46 - Medications Medications: Current Medications Acetaminophen (Tylenol 325mg Tab) 650 mg PO Q6 PRN PRN Reason: Other Aspirin (Aspirin Chewable) 81 mg PO DAILY [facility] Last Admin: 04/04/18 08:51 Dose: 81 mg Atorvastatin Calcium (Lipitor) 10 mg PO HS [facility] Last Admin: 04/03/18 22:15 Dose: 10 mg Docusate Sodium (Colace) 100 mg PO DAILY [facility] Last Admin: 04/04/18 08:48 Dose: 100 mg Heparin Sodium/Dextrose (Heparin 25,000 Units/250ml In D5w) 25,000 units in 250 mls @ 8 mls/hr IV .Q24H [facility]; Protocol Last Admin: 04/04/18 03:26 Dose: 8 mls/hr Levothyroxine Sodium (Synthroid) 75 mcg PO DAILY@0630 [facility] Last Admin: 04/04/18 05:58 Dose: 75 mcg Losartan Potassium (Cozaar) 25 mg PO DAILY [facility] Last Admin: 04/04/18 08:51 Dose: 25 mg Metoprolol Succinate (Toprol Xl) 25 mg PO DAILY [facility] Last Admin: 04/04/18 08:48 Dose: 25 mg Morphine Sulfate (Morphine) 2 mg IVP Q4 PRN PRN Reason: Pain, severe (8-10) Last Admin: 04/03/18 22:15 Dose: 2 mg Nitroglycerin (Nitro-Bid 2% Oint) 1 ea TOP Q4 PRN PRN Reason: chest pain Pantoprazole Sodium (Protonix Inj) 40 mg IVP DAILY [facility] Last Admin: 04/04/18 08:49 Dose: 40 mg Phenol/Menthol (Phenaseptic 1.4% Throat [place]) 1 spry MT Q2 PRN PRN Reason: throat pain Last Admin: 04/02/18 23:36 Dose: 1 spr Polyethylene Glycol (Miralax) 17 gm PO DAILY [facility] Last Admin: 04/04/18 08:50 Dose: 17 gm Sucralfate (Carafate Oral Susp) 1 gm PO BID [facility] Last Admin: 04/04/18 17:36 Dose: 1 gm Temazepam (Restoril) 30 mg PO HS [facility] Last Admin: 04/03/18 22:57 Dose: 30 mg - Labs Labs: 04/04/18 11:00 04/04/18 11:00 PT 13.6 Seconds (9.8-13.1) H 04/04/18 18:53 INR 1.2 04/04/18 18:53 APTT 66.4 Seconds (25.6-37.1) H 04/04/18 18:53 Attending/Attestation - Attestation I have personally seen and examined this patient.: Yes I have fully participated in the care of the patient.: Yes I have reviewed all pertinent clinical information, including history, physical exam and plan: Yes
--- NOTE | 2018-04-03 09:00 | CP.PCM.PN ---
Subjective - Date & Time of Evaluation Date of Evaluation: 04/03/18 Time of Evaluation: 09:00 - Subjective Subjective: pt was transferred for cardiac cath earlier this morning. Objective - Vital Signs/Intake and Output Vital Signs (last 24 hours): Temp Pulse Resp BP Pulse Ox 98.4 F 69 24 126/64 99 04/03/18 08:00 04/03/18 08:00 04/03/18 08:00 04/03/18 08:00 04/03/18 08:00 Intake and Output: 04/03/18 04/03/18 06:59 18:59 Intake Total 319 Output Total 650 Balance -331 - Medications Medications: Current Medications Acetaminophen (Tylenol 325mg Tab) 650 mg PO Q6 PRN PRN Reason: Other Aspirin (Aspirin Chewable) 81 mg PO DAILY [facility] Last Admin: 04/02/18 08:36 Dose: 81 mg Atorvastatin Calcium (Lipitor) 10 mg PO HS [facility] Last Admin: 04/02/18 21:02 Dose: 10 mg Docusate Sodium (Colace) 100 mg PO DAILY [facility] Last Admin: 04/02/18 08:35 Dose: 100 mg Heparin Sodium/Dextrose (Heparin 25,000 Units/250ml In D5w) 25,000 units in 250 mls @ 6.532 mls/hr IV .Q24H [facility]; Protocol Last Titration: 04/03/18 04:00 Dose: 0 unit/kg/hr, 0 mls/hr Levothyroxine Sodium (Synthroid) 75 mcg PO DAILY@0630 [facility] Last Admin: 04/03/18 05:47 Dose: 75 mcg Losartan Potassium (Cozaar) 25 mg PO DAILY [facility] Last Admin: 04/02/18 08:35 Dose: 25 mg Metoprolol Succinate (Toprol Xl) 25 mg PO DAILY [facility] Last Admin: 04/02/18 08:36 Dose: 25 mg Morphine Sulfate (Morphine) 2 mg IVP Q4 PRN PRN Reason: Pain, severe (8-10) Last Admin: 04/02/18 22:52 Dose: 2 mg Nitroglycerin (Nitro-Bid 2% Oint) 1 ea TOP Q4 PRN PRN Reason: chest pain Pantoprazole Sodium (Protonix Inj) 40 mg IVP DAILY [facility] Last Admin: 04/02/18 08:37 Dose: 40 mg Phenol/Menthol (Phenaseptic 1.4% Throat [place]) 1 spry MT Q2 PRN PRN Reason: throat pain Last Admin: 04/02/18 23:36 Dose: 1 spr Polyethylene Glycol (Miralax) 17 gm PO DAILY [facility] Last Admin: 04/02/18 15:18 Dose: 17 gm Sucralfate (Carafate Oral Susp) 1 gm PO BID [facility] Last Admin: 04/02/18 17:12 Dose: 1 gm Temazepam (Restoril) 30 mg PO HS [facility] Last Admin: 04/02/18 23:21 Dose: 30 mg - Labs Labs: 04/03/18 04:30 04/03/18 04:30 PT 12.7 Seconds (9.8-13.1) 04/03/18 04:30 INR 1.1 04/03/18 04:30 APTT 44.8 Seconds (25.6-37.1) H 04/03/18 04:30 Assessment and Plan - Assessment and Plan (Free Text) Assessment: patient was not seen, he was transferred for cardiac catheterization. 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 Stress test cancelled due to wall motion abnormality seen on repeat echocardiogram. Dr. Limon on consult. Plan: 1. Acute Coronary Syndrome -chest pain improved -Cardiology consult - Dr. Limon: heparin drip per normogram and cardiac cath today -troponin negative x 3 -03/30/17: Echo LVEF 55-60%, PPM lead noted in right ventricle -Nitropaste 2% TOP Q4 PRN for chest pain -pending results of cath 2. Coronary Artery Disease/Hypertension -chronic -Lipid panel TG 46, chol 130, LDL 57, HDL 72, CMP, Mg, Phos, B12 all within n ormal limit, proBNP normal -continue atorvastatin 10mg PO QHS, metoprolol succinate 25mg PO QD, Losartan 25mg PO QD 3. Atrial Fibrillation -chronic, controlled -Has pacemaker -INR 1.1 today, Hold warfarin, give vitamin K 10 mg PO once as plan is for cath today and patient is on heparin drip 4. GERD -chronic, uncontrolled -Protonix 40mg PO QD -referral to GI as outpatient 5. Hypothyroidism -chronic, controlled, TSH 1.13 -continue Levothyroxine 75 mcg PO QD 6. Anxiety/Depression -chronic, controlled -continue temazepam 30mg PO QHS 7. Constipation -chronic, controlled -Colace 100mg PO QD 8. NIDDM Type 2 -chronic, controlled without medication -03/31/18: HbA1c 6.8 9. Diet and GI proph -Pureed modified consistency, per patient has trouble with regular bite size f ood 10. DVT prophylaxis - patient is on heparin drip
--- NOTE | 2018-04-03 10:10 | RAD ---
Date of service: 04/02/2018 PROCEDURE: Radiographs of the Lumbar Spine. HISTORY: pain lower back COMPARISON: No prior. FINDINGS: BONES: Normal alignment. No listhesis. No fracture. Generalized osteopenia and diffuse marginal osteophytosis. Concomitant bilateral facet hypertrophic changes-most pronounced at the L4-5 and L5-S1 levels. Probable Schmorl's node indentations at the of upper lumbar levels. DISC SPACES: Unremarkable. OTHER FINDINGS: Atherosclerotic vascular calcifications present. Bilateral hip arthrosis. IMPRESSION: Generalized osteopenia, spondylosis and facet hypertrophic arthrosis. Per lateral view the AP inferior lumbo sacral spinal canal appear shallow at L5-S1. A concomitant spinal stenosis here is possible. No suspect lumbar vertebral body fracture suggested. No significant appearing spondylolisthesis noted.
[2018-04-03] MEDS: Sucralfate 1 gm/10 ml Oral Susp UD PO SCH ×2 (10:59→17:24)
[2018-04-03] MEDS: POLYETHYLENE GLYCOL 3350 17 GM/Dose PACKET PO SCH (11:00)
[2018-04-03] MEDS: Metoprolol Succinate 25 mg XL Tab PO SCH ×2 (11:01→17:30)
[2018-04-03] MEDS: Morphine 4 MG/ML VIAL IVP PRN ×2 (16:26→22:15)
[2018-04-03] MEDS ORDERED: Heparin 25,000units in D5W 25,000 UNITS/250 ML BAG IV SCH (17:00)
[2018-04-03 17:18] LABS: INR 1.1; PROTHROMBIN TIME 12.5 Seconds (9.8-13.1)
[2018-04-03 17:21] LABS: PARTIAL THROMBOPLASTIN TIME 33.6 Seconds (25.6-37.1)
[2018-04-04] MEDS ORDERED: Heparin 25,000units in D5W 25,000 UNITS/250 ML BAG IV SCH ×3 (02:30→03:30)
[2018-04-04] MEDS: Levothyroxine 75 MCG TAB PO SCH (05:58)
[2018-04-04] MEDS: Sucralfate 1 gm/10 ml Oral Susp UD PO SCH ×2 (08:48→17:36)
[2018-04-04] MEDS: Metoprolol Succinate 25 mg XL Tab PO SCH (08:48)
[2018-04-04] MEDS: POLYETHYLENE GLYCOL 3350 17 GM/Dose PACKET PO SCH (08:50)
[2018-04-04 11:08] LABS: MEAN CELL VOLUME 89.8 fl (80.0-94.0); MEAN CORPUSCULAR HEMOGLOBIN 29.5 pg (27.0-31.0); MEAN CORPUSCULAR HGB CONC 32.8 g/dL (33.0-37.0); RBC 4.06 Mil/uL (4.40-5.90); RED CELL DISTRIBUTION WIDTH 14.6 % (11.5-14.5); WHITE BLOOD COUNT 11.4 K/uL (4.8-10.8)
[2018-04-04 11:14] LABS: BLOOD UREA NITROGEN 29 mg/dl (9-20); CALCIUM 8.7 mg/dL (8.4-10.2); GFR NON-AFRICAN AMERICAN > 60
--- NOTE | 2018-04-04 11:17 | CP.PCM.PN ---
Subjective - Date & Time of Evaluation Date of Evaluation: 04/04/18 Time of Evaluation: 11:14 - Subjective Subjective: Patient seen and examined bedside. Patient was seen s/p cath last night, appeared weak. Catheter site was checked and appeared unremarkable, no bleeding, no hematoma. This morning patient more awake, no complaints of pain. Tolerated breakfast. Sitting upright in bed, sleeping but easily arousable. States he is tired. S/p cardiac cath 04/03/18. Report reviewed. Heparin drip resumed after cath. Bridging to Warfarin to be started today. Objective - Vital Signs/Intake and Output Vital Signs (last 24 hours): Temp Pulse Resp BP Pulse Ox 97.5 F L 66 20 110/54 L 96 04/04/18 08:09 04/04/18 08:51 04/04/18 08:09 04/04/18 08:51 04/04/18 08:09 Intake and Output: 04/04/18 04/04/18 06:59 18:59 Intake Total 50 Balance 50 - Medications Medications: Current Medications Acetaminophen (Tylenol 325mg Tab) 650 mg PO Q6 PRN PRN Reason: Other Aspirin (Aspirin Chewable) 81 mg PO DAILY [facility] Last Admin: 04/04/18 08:51 Dose: 81 mg Atorvastatin Calcium (Lipitor) 10 mg PO HS [facility] Last Admin: 04/03/18 22:15 Dose: 10 mg Docusate Sodium (Colace) 100 mg PO DAILY [facility] Last Admin: 04/04/18 08:48 Dose: 100 mg Heparin Sodium/Dextrose (Heparin 25,000 Units/250ml In D5w) 25,000 units in 250 mls @ 8 mls/hr IV .Q24H [facility]; Protocol Last Admin: 04/04/18 03:26 Dose: 8 mls/hr Levothyroxine Sodium (Synthroid) 75 mcg PO DAILY@0630 [facility] Last Admin: 04/04/18 05:58 Dose: 75 mcg Losartan Potassium (Cozaar) 25 mg PO DAILY [facility] Last Admin: 04/04/18 08:51 Dose: 25 mg Metoprolol Succinate (Toprol Xl) 25 mg PO DAILY [facility] Last Admin: 04/04/18 08:48 Dose: 25 mg Morphine Sulfate (Morphine) 2 mg IVP Q4 PRN PRN Reason: Pain, severe (8-10) Last Admin: 04/03/18 22:15 Dose: 2 mg Nitroglycerin (Nitro-Bid 2% Oint) 1 ea TOP Q4 PRN PRN Reason: chest pain Pantoprazole Sodium (Protonix Inj) 40 mg IVP DAILY [facility] Last Admin: 04/04/18 08:49 Dose: 40 mg Phenol/Menthol (Phenaseptic 1.4% Throat [place]) 1 spry MT Q2 PRN PRN Reason: throat pain Last Admin: 04/02/18 23:36 Dose: 1 spr Polyethylene Glycol (Miralax) 17 gm PO DAILY [facility] Last Admin: 04/04/18 08:50 Dose: 17 gm Sucralfate (Carafate Oral Susp) 1 gm PO BID [facility] Last Admin: 04/04/18 08:48 Dose: 1 gm Temazepam (Restoril) 30 mg PO HS [facility] Last Admin: 04/03/18 22:57 Dose: 30 mg - Labs Labs: 04/04/18 11:00 04/03/18 04:30 PT 12.5 Seconds (9.8-13.1) 04/03/18 16:59 INR 1.1 04/03/18 16:59 APTT 96.7 Seconds (25.6-37.1) H 04/04/18 07:53 - Constitutional Appears: Cachectic - Head Exam Head Exam: ATRAUMATIC, NORMAL INSPECTION, NORMOCEPHALIC - Eye Exam Eye Exam: EOMI - Respiratory Exam Respiratory Exam: NORMAL BREATHING PATTERN. absent: Rhonchi, Wheezes, Respiratory Distress - Cardiovascular Exam Cardiovascular Exam: REGULAR RHYTHM, +S1, +S2 Additional comments: distant heart sounds - GI/Abdominal Exam GI & Abdominal Exam: Soft. absent: Tenderness - Neurological Exam Neurological Exam: Awake - Skin Additional comments: right groin: dressing intact, clean and dry, no hematoma. 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 Cardiology consulted, Dr. Limon, pt started on heparin drip. Patient had echo on 03/30/17: EF of 55-60%, PPM lead noted in right ventricle. Patient s/p cardiac cath on 04/03/18, revealed severe triple vessel disease, recommend aggressive medical management, risk factor modification. Patient has chronic GERD - GI referral to be done outpatient. He has NIDDM, controlled off medications, last Hga1c: 6.8 on 03/31/17, #. ACS, acute #. CAD, chronic #. HTN, chronic, controlled #. Afib, chronic, paced rhythm #. GERD, chronic controlled #. Hypothyroidism, chronic, controlled #. Anxiety/ Depression, chronic controlled #. Constipation, chronic, controlled #. NIDDM2-, chronic controlled of medications #. Dysphagia #. GI/DIET prophylaxis Plan: -monitor vitals -Continue with heparin drip, bridge to warfarin starting today with Coumadin 3mg -home medications resumed -will recheck bmp and cbc s/p cardiac cath, f/u results. -await pt/ot eval Patient seen and examined with Dr. Carmen.
--- NOTE | 2018-04-04 17:14 | CP.PCM.PN ---
Subjective - Date & Time of Evaluation Date of Evaluation: 04/04/18 Time of Evaluation: 17:11 - Subjective Subjective: Christiano Holguin DO PGY1 - Internal Medicine Medical Aides Teacher - Cardiology Note for Dr. Limon Patient seen and examined this morning at bedside, no acute events reported overnight. Vital signs reviewed patient has demonstrated hemodynamic stability. Upon examination this morning patient complaining of still work irritation with swallowing. Will put patient on soft heart healthy diet. Objective - Vital Signs/Intake and Output Vital Signs (last 24 hours): Temp Pulse Resp BP Pulse Ox 98.3 F 75 18 114/56 L 96 04/04/18 15:46 04/04/18 15:46 04/04/18 15:46 04/04/18 15:46 04/04/18 15:46 Intake and Output: 04/04/18 04/04/18 06:59 18:59 Intake Total 50 Balance 50 - Medications Medications: Current Medications Acetaminophen (Tylenol 325mg Tab) 650 mg PO Q6 PRN PRN Reason: Other Aspirin (Aspirin Chewable) 81 mg PO DAILY [facility] Last Admin: 04/04/18 08:51 Dose: 81 mg Atorvastatin Calcium (Lipitor) 10 mg PO HS [facility] Last Admin: 04/03/18 22:15 Dose: 10 mg Docusate Sodium (Colace) 100 mg PO DAILY [facility] Last Admin: 04/04/18 08:48 Dose: 100 mg Heparin Sodium/Dextrose (Heparin 25,000 Units/250ml In D5w) 25,000 units in 250 mls @ 8 mls/hr IV .Q24H [facility]; Protocol Last Admin: 04/04/18 03:26 Dose: 8 mls/hr Levothyroxine Sodium (Synthroid) 75 mcg PO DAILY@0630 [facility] Last Admin: 04/04/18 05:58 Dose: 75 mcg Losartan Potassium (Cozaar) 25 mg PO DAILY [facility] Last Admin: 04/04/18 08:51 Dose: 25 mg Metoprolol Succinate (Toprol Xl) 25 mg PO DAILY [facility] Last Admin: 04/04/18 08:48 Dose: 25 mg Morphine Sulfate (Morphine) 2 mg IVP Q4 PRN PRN Reason: Pain, severe (8-10) Last Admin: 04/03/18 22:15 Dose: 2 mg Nitroglycerin (Nitro-Bid 2% Oint) 1 ea TOP Q4 PRN PRN Reason: chest pain Pantoprazole Sodium (Protonix Inj) 40 mg IVP DAILY [facility] Last Admin: 04/04/18 08:49 Dose: 40 mg Phenol/Menthol (Phenaseptic 1.4% Throat [place]) 1 spry MT Q2 PRN PRN Reason: throat pain Last Admin: 04/02/18 23:36 Dose: 1 spr Polyethylene Glycol (Miralax) 17 gm PO DAILY [facility] Last Admin: 04/04/18 08:50 Dose: 17 gm Sucralfate (Carafate Oral Susp) 1 gm PO BID [facility] Last Admin: 04/04/18 08:48 Dose: 1 gm Temazepam (Restoril) 30 mg PO HS [facility] Last Admin: 04/03/18 22:57 Dose: 30 mg Warfarin Sodium (Coumadin) 3 mg PO QD5 [facility]; Protocol Stop: 04/04/18 17:01 - Labs Labs: 04/04/18 11:00 04/04/18 11:00 PT 12.5 Seconds (9.8-13.1) 04/03/18 16:59 INR 1.1 04/03/18 16:59 APTT 96.7 Seconds (25.6-37.1) H 04/04/18 07:53 Physical Exam - Constitutional Appears: Well, Non-toxic, No Acute Distress - Head Exam Head Exam: ATRAUMATIC, NORMOCEPHALIC - Eye Exam Eye Exam: EOMI, Normal appearance, PERRL - Respiratory Exam Respiratory Exam: Clear to Auscultation Bilateral, NORMAL BREATHING PATTERN - Cardiovascular Exam Cardiovascular Exam: RRR, +S1, +S2 - GI/Abdominal Exam GI & Abdominal Exam: Normal Bowel Sounds, Soft, Tenderness (LUQ/LLQ ) - Rectal Exam Rectal Exam: NORMAL INSPECTION - Extremities Exam Additional comments: Pedal pulses diminished bilaterally LE warm; Cap refill <2 sec; - Neurological Exam Neurological exam: Alert, Oriented x3 - Psychiatric Exam Psychiatric exam: Normal Affect, Normal Mood - Skin Skin Exam: Dry, Intact, Normal Color, Warm Assessment and Plan (1) ACS (acute coronary syndrome) Status: Acute (2) Near syncope Status: Acute (3) Abdominal pain Status: Acute (4) Atrial fibrillation with RVR Status: Acute - Assessment and Plan (Free Text) Plan: Cont heparin drip as per protocol for hx afib Cont home warfarin 2.5mg ; F/u INR DC Heparin once INR 2-3 Continue patient on aspirin 81 daily, Plavix 75 QD Lipitor 10 daily, cozaar 25 daily, Metroprolol 25 daily. Angiographic findings from Cardiac Cath 04/03: Left main large-sized vessel bifurcation to the LAD and LCX. Distal Left main had 80% stenosis. LAD proximally 100% with competent flow from MC to LAD. Diagonal High grade 90% stenosis w/ some competitive flow noted. Left circum flex high-grade proximal 90% stenosis OM1 has 99% subtotal occlusion. RCA of proximal to mid 100% occluded. Graft anatomy, MC to LAD is patent. SVG to diagonal patent. SVG to OM1 and OM2 patent. SVG to right PDA patent. LVEF 55%
[2018-04-04 19:01] LABS: INR 1.2; PROTHROMBIN TIME 13.6 Seconds (9.8-13.1)
[2018-04-04 19:04] LABS: PARTIAL THROMBOPLASTIN TIME 66.4 Seconds (25.6-37.1)
[2018-04-04] MEDS: Morphine 4 MG/ML VIAL IVP PRN (20:16)
[2018-04-05] MEDS ORDERED: Heparin 25,000units in D5W 25,000 UNITS/250 ML BAG IV SCH (03:30)
[2018-04-05] MEDS: Heparin 25,000units in D5W 25,000 UNITS/250 ML BAG IV SCH (04:13)
[2018-04-05 06:04] LABS: INR 1.2; PROTHROMBIN TIME 13.8 Seconds (9.8-13.1)
[2018-04-05] MEDS: Levothyroxine 75 MCG TAB PO SCH (06:30)
[2018-04-05] MEDS: POLYETHYLENE GLYCOL 3350 17 GM/Dose PACKET PO SCH (08:54)
[2018-04-05] MEDS: Sucralfate 1 gm/10 ml Oral Susp UD PO SCH ×2 (08:54→17:51)
[2018-04-05] MEDS: Metoprolol Succinate 25 mg XL Tab PO SCH (08:54)
--- NOTE | 2018-04-05 10:51 | CP.PCM.PN ---
Subjective - Date & Time of Evaluation Date of Evaluation: 04/05/18 Time of Evaluation: 10:51 - Subjective Subjective: Patient seen and examined with attending. Sitting upright in bed, eating lunch. No complaints offered. Continue heparin drip, bridging to warfarin. Continue pt/ot No headaches, dizziness, chest pain, dyspnea, nausea, vomiting, abdominal pain. Tolerating diet. Objective - Vital Signs/Intake and Output Vital Signs (last 24 hours): Temp Pulse Resp BP Pulse Ox 97.9 F 70 18 111/68 98 04/05/18 07:57 04/05/18 08:54 04/05/18 07:57 04/05/18 08:54 04/05/18 07:57 Intake and Output: 04/05/18 04/05/18 06:59 18:59 Intake Total 50 Balance 50 - Medications Medications: Current Medications Acetaminophen (Tylenol 325mg Tab) 650 mg PO Q6 PRN PRN Reason: Other Last Admin: 04/05/18 09:06 Dose: 650 mg Aspirin (Aspirin Chewable) 81 mg PO DAILY [facility] Last Admin: 04/04/18 08:51 Dose: 81 mg Atorvastatin Calcium (Lipitor) 10 mg PO HS [facility] Last Admin: 04/04/18 22:16 Dose: 10 mg Docusate Sodium (Colace) 100 mg PO DAILY [facility] Last Admin: 04/05/18 08:53 Dose: 100 mg Heparin Sodium/Dextrose (Heparin 25,000 Units/250ml In D5w) 25,000 units in 250 mls @ 6 mls/hr IV .Q24H [facility]; Protocol Last Admin: 04/05/18 04:13 Dose: 6 mls/hr Levothyroxine Sodium (Synthroid) 75 mcg PO DAILY@0630 [facility] Last Admin: 04/05/18 06:30 Dose: 75 mcg Losartan Potassium (Cozaar) 25 mg PO DAILY [facility] Last Admin: 04/05/18 08:53 Dose: 25 mg Metoprolol Succinate (Toprol Xl) 25 mg PO DAILY [facility] Last Admin: 04/05/18 08:54 Dose: 25 mg Morphine Sulfate (Morphine) 2 mg IVP Q4 PRN PRN Reason: Pain, severe (8-10) Last Admin: 04/04/18 20:16 Dose: 2 mg Nitroglycerin (Nitro-Bid 2% Oint) 1 ea TOP Q4 PRN PRN Reason: chest pain Pantoprazole Sodium (Protonix Inj) 40 mg IVP DAILY [facility] Last Admin: 04/05/18 08:54 Dose: 40 mg Phenol/Menthol (Phenaseptic 1.4% Throat [place]) 1 spry MT Q2 PRN PRN Reason: throat pain Last Admin: 04/02/18 23:36 Dose: 1 spr Polyethylene Glycol (Miralax) 17 gm PO DAILY [facility] Last Admin: 04/05/18 08:54 Dose: 17 gm Sucralfate (Carafate Oral Susp) 1 gm PO BID [facility] Last Admin: 04/05/18 08:54 Dose: 1 gm Temazepam (Restoril) 30 mg PO HS [facility] Last Admin: 04/04/18 22:15 Dose: 30 mg Warfarin Sodium (Coumadin) 3 mg PO QD5 [facility]; Protocol Stop: 04/05/18 17:01 - Labs Labs: 04/04/18 11:00 04/04/18 11:00 PT 13.8 Seconds (9.8-13.1) H 04/05/18 04:30 INR 1.2 04/05/18 04:30 APTT 73.1 Seconds (25.6-37.1) H 04/05/18 08:06 - Constitutional Appears: Cachectic - Head Exam Head Exam: NORMAL INSPECTION - ENT Exam ENT Exam: Normal Exam - Respiratory Exam Respiratory Exam: Clear to Ausculation Bilateral, NORMAL BREATHING PATTERN. absent: Rales - Cardiovascular Exam Cardiovascular Exam: REGULAR RHYTHM, +S1, +S2. absent: Murmur - GI/Abdominal Exam GI & Abdominal Exam: Soft. 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 Cardiology consulted, Dr. Limon, pt started on heparin drip. Patient had echo on 03/30/17: EF of 55-60%, PPM lead noted in right ventricle. Patient s/p cardiac cath on 04/03/18, revealed severe triple vessel disease, recommend aggressive medical management, risk factor modification. Patient has chronic GERD - GI referral to be done outpatient. He has NIDDM, controlled off medications, last Hga1c: 6.8 on 03/31/17/ Hypothyroidism: controlled, TSH is 1.13 #. ACS, acute #. CAD, chronic #. HTN, chronic, controlled #. Afib, chronic, paced rhythm #. GERD, chronic controlled #. Hypothyroidism, chronic, controlled #. Anxiety/ Depression, chronic controlled #. Constipation, chronic, controlled #. NIDDM2-, chronic controlled of medications #. Deconditioning #. Cachexia #. Dysphagia #. GI/DIET prophylaxis Plan: -Continue with heparin drip, bridge to warfarin, Day #2 with Coumadin 3mg -INR 1.2 -Spoke with Dr. Limon, no plavix, pt was not on this previously. He is only on Coumadin and Aspirin. -pt/ot eval appreciated, continue with pt/ot with discharge to TCU once INR is therapeutic. Patient seen and examined with Dr. Carmen.
--- NOTE | 2018-04-05 11:01 | CP.PCM.PN ---
Subjective - Date & Time of Evaluation Date of Evaluation: 04/05/18 Time of Evaluation: 11:24 - Subjective Subjective: Christiano Holguin DO PGY1 - Internal Medicine Route Process Administrator - Cardiology Note for Dr. Limon Patient was seen and examined at bedside this morning, no acute events reported overnight vital signs stable. Denies any complaints of chest pain palpitations or shortness of breath. He is complaining of gross bodyaches as well as sore throat. Objective - Vital Signs/Intake and Output Vital Signs (last 24 hours): Temp Pulse Resp BP Pulse Ox 97.9 F 70 18 111/68 98 04/05/18 07:57 04/05/18 08:54 04/05/18 07:57 04/05/18 08:54 04/05/18 07:57 Intake and Output: 04/05/18 04/05/18 06:59 18:59 Intake Total 50 Balance 50 - Medications Medications: Current Medications Acetaminophen (Tylenol 325mg Tab) 650 mg PO Q6 PRN PRN Reason: Other Last Admin: 04/05/18 09:06 Dose: 650 mg Aspirin (Aspirin Chewable) 81 mg PO DAILY [facility] Last Admin: 04/04/18 08:51 Dose: 81 mg Atorvastatin Calcium (Lipitor) 10 mg PO HS [facility] Last Admin: 04/04/18 22:16 Dose: 10 mg Docusate Sodium (Colace) 100 mg PO DAILY [facility] Last Admin: 04/05/18 08:53 Dose: 100 mg Heparin Sodium/Dextrose (Heparin 25,000 Units/250ml In D5w) 25,000 units in 250 mls @ 6 mls/hr IV .Q24H [facility]; Protocol Last Admin: 04/05/18 04:13 Dose: 6 mls/hr Levothyroxine Sodium (Synthroid) 75 mcg PO DAILY@0630 [facility] Last Admin: 04/05/18 06:30 Dose: 75 mcg Losartan Potassium (Cozaar) 25 mg PO DAILY [facility] Last Admin: 04/05/18 08:53 Dose: 25 mg Metoprolol Succinate (Toprol Xl) 25 mg PO DAILY [facility] Last Admin: 04/05/18 08:54 Dose: 25 mg Morphine Sulfate (Morphine) 2 mg IVP Q4 PRN PRN Reason: Pain, severe (8-10) Last Admin: 04/04/18 20:16 Dose: 2 mg Nitroglycerin (Nitro-Bid 2% Oint) 1 ea TOP Q4 PRN PRN Reason: chest pain Pantoprazole Sodium (Protonix Inj) 40 mg IVP DAILY [facility] Last Admin: 04/05/18 08:54 Dose: 40 mg Phenol/Menthol (Phenaseptic 1.4% Throat [place]) 1 spry MT Q2 PRN PRN Reason: throat pain Last Admin: 04/02/18 23:36 Dose: 1 spr Polyethylene Glycol (Miralax) 17 gm PO DAILY [facility] Last Admin: 04/05/18 08:54 Dose: 17 gm Sucralfate (Carafate Oral Susp) 1 gm PO BID [facility] Last Admin: 04/05/18 08:54 Dose: 1 gm Temazepam (Restoril) 30 mg PO HS [facility] Last Admin: 04/04/18 22:15 Dose: 30 mg Warfarin Sodium (Coumadin) 3 mg PO QD5 [facility]; Protocol Stop: 04/05/18 17:01 - Labs Labs: 04/04/18 11:00 04/04/18 11:00 PT 13.8 Seconds (9.8-13.1) H 04/05/18 04:30 INR 1.2 04/05/18 04:30 APTT 73.1 Seconds (25.6-37.1) H 04/05/18 08:06 Physical Exam - Constitutional Appears: Well, Non-toxic, No Acute Distress - Head Exam Head Exam: ATRAUMATIC, NORMOCEPHALIC - Eye Exam Eye Exam: EOMI, Normal appearance, PERRL - Respiratory Exam Respiratory Exam: Clear to Auscultation Bilateral, NORMAL BREATHING PATTERN - Cardiovascular Exam Cardiovascular Exam: RRR, +S1, +S2 - GI/Abdominal Exam GI & Abdominal Exam: Normal Bowel Sounds, Soft, Tenderness (LUQ/LLQ ) - Rectal Exam Rectal Exam: NORMAL INSPECTION - Extremities Exam Additional comments: Pedal pulses diminished bilaterally LE warm; Cap refill <2 sec; - Neurological Exam Neurological exam: Alert, Oriented x3 - Psychiatric Exam Psychiatric exam: Normal Affect, Normal Mood - Skin Skin Exam: Dry, Intact, Normal Color, Warm Assessment and Plan (1) ACS (acute coronary syndrome) Status: Acute (2) Near syncope Status: Acute (3) Abdominal pain Status: Acute (4) Atrial fibrillation with RVR Status: Acute - Assessment and Plan (Free Text) Plan: Cont heparin drip as per protocol for hx afib Cont home warfarin 2.5mg ; F/u INR DC Heparin once INR 2-3 Continue patient on aspirin 81 daily, Lipitor 10 daily, cozaar 25 daily, Metroprolol 25 daily. Plavix 75 daily resumed Angiographic findings from Cardiac Cath 04/03: Left main large-sized vessel bifurcation to the LAD and LCX. Distal Left main had 80% stenosis. LAD proximally 100% with competent flow from MC to LAD. Diagonal High grade 90% stenosis w/ some competitive flow noted. Left circum flex high-grade proximal 90% stenosis OM1 has 99% subtotal occlusion. RCA of proximal to mid 100% occluded. Graft anatomy, MC to LAD is patent. SVG to diagonal patent. SVG to OM1 and OM2 patent. SVG to right PDA patent. LVEF 55%
[2018-04-05] MEDS: Phenol 1.4% Throat Spray MT PRN (21:19)
[2018-04-06] MEDS: Heparin 25,000units in D5W 25,000 UNITS/250 ML BAG IV SCH (06:11)
[2018-04-06] MEDS: Levothyroxine 75 MCG TAB PO SCH (06:12)
[2018-04-06 07:35] LABS: HEMOGLOBIN 11.6 g/dL (12.0-18.0); INR 1.4; MEAN CELL VOLUME 87.6 fl (80.0-94.0); MEAN CORPUSCULAR HEMOGLOBIN 29.5 pg (27.0-31.0); MEAN CORPUSCULAR HGB CONC 33.6 g/dL (33.0-37.0); PROTHROMBIN TIME 16.3 Seconds (9.8-13.1); RBC 3.95 Mil/uL (4.40-5.90); RED CELL DISTRIBUTION WIDTH 14.5 % (11.5-14.5)
[2018-04-06 07:37] LABS: PARTIAL THROMBOPLASTIN TIME 98.7 Seconds (25.6-37.1)
[2018-04-06 07:52] LABS: BLOOD UREA NITROGEN 24 mg/dl (9-20); CALCIUM 8.6 mg/dL (8.4-10.2); GFR NON-AFRICAN AMERICAN > 60
[2018-04-06 07:57] VITALS: RESP 20; TEMP 97.5
[2018-04-06] MEDS ORDERED: Enoxaparin 60 mg Syringe SC SCH (09:00)
[2018-04-06] MEDS: Metoprolol Succinate 25 mg XL Tab PO SCH (09:13)
[2018-04-06] MEDS: POLYETHYLENE GLYCOL 3350 17 GM/Dose PACKET PO SCH (09:14)
[2018-04-06] MEDS: Sucralfate 1 gm/10 ml Oral Susp UD PO SCH (11:54)
[2018-04-06 11:55] VITALS: BP 95/55; PULSE 73; O2SAT 97
--- NOTE | 2018-04-06 12:13 | CP.PCM.DIS ---
<Alberto Benitez - Last Filed: 04/06/18 12:09> Provider - Provider Date of Admission: 03/30/18 11:10 Attending physician: Lucio Carmen MD Primary care physician: Dr. Lucio Carmen Consults: 03/30/18 12:14 Cardiology Consult Routine Comment: ACS, PMHx CAD s/p CABG, Afibm CHF, HLD, HTN, hypot Consulting Provider: John Limon Consulting Physician: John Limon Reason for Consult: ACS, PMHx CAD s/p CABG, Afibm CHF, HLD, HTN, hypothyroidism, Anxiety Time Spent in preparation of Discharge (in minutes): 35 Diagnosis - Discharge Diagnosis (1) ACS (acute coronary syndrome) Status: Resolved Comment: s/p cardiac cath with Dr. Limon, severe triple vessel disease. medical management recommended. he is on losartan 25mg, toprol xl 25mg, aspirin, atorvastatin (2) Chest pain Status: Resolved Comment: as above (3) HTN (hypertension) Status: Chronic Comment: controlled : losartan 25mg, metoprolol succinate xl 25 mg po daily (4) A-fib Status: Chronic Priority: High Comment: bridge to coumadin, currently on therapeutic lovenox 50mg po q12 until INR is therapeutic (5) Hypothyroidism Status: Chronic Comment: controlled with levothyroxine 75mcg. TSH: 1.13 (03/31/17) (6) History of diabetes mellitus Status: Chronic Comment: controlled of medications. Hga1c: 6.8 (03/31/17) (7) Physical deconditioning Status: Acute Comment: discharge to TCU for rehabilitation (8) Cachexia Status: Chronic Hospital Course - Lab Results Lab Results: Micro Results 04/03/18 07:48 Naris MRSA Culture (Admit) - Final MRSA NOT DETECTED 04/03/18 18:28 Naris MRSA Culture (Admit) - Final MRSA NOT DETECTED 03/30/18 09:50 Naris MRSA Culture (Admit) - Final MRSA NOT DETECTED Most Recent Lab Values WBC 6.0 K/uL (4.8-10.8) 04/06/18 06:15 RBC 3.95 Mil/uL (4.40-5.90) L 04/06/18 06:15 Hgb 11.6 g/dL (12.0-18.0) L 04/06/18 06:15 Hct 34.6 % (35.0-51.0) L 04/06/18 06:15 MCV 87.6 fl (80.0-94.0) D 04/06/18 06:15 MCH 29.5 pg (27.0-31.0) 04/06/18 06:15 MCHC 33.6 g/dL (33.0-37.0) 04/06/18 06:15 RDW 14.5 % (11.5-14.5) 04/06/18 06:15 Plt Count 185 K/uL (130-400) 04/06/18 06:15 MPV 9.7 fl (7.2-11.7) 03/31/18 05:30 Neut % (Auto) 55.1 % (50.0-75.0) 03/31/18 05:30 Lymph % (Auto) 23.1 % (20.0-40.0) 03/31/18 05:30 [place] % (Auto) 16.2 % (0.0-10.0) H 03/31/18 05:30 Eos % (Auto) 4.8 % (0.0-4.0) H 03/31/18 05:30 Baso % (Auto) 0.8 % (0.0-2.0) 03/31/18 05:30 Neut # (Auto) 3.5 K/uL (1.8-7.0) 03/31/18 05:30 Lymph # (Auto) 1.4 K/uL (1.0-4.3) 03/31/18 05:30 [place] # (Auto) 1.0 K/uL (0.0-0.8) H 03/31/18 05:30 Eos # (Auto) 0.3 K/uL (0.0-0.7) 03/31/18 05:30 Baso # (Auto) 0.1 K/uL (0.0-0.2) 03/31/18 05:30 PT 16.3 Seconds (9.8-13.1) H 04/06/18 06:15 INR 1.4 04/06/18 06:15 APTT 98.7 Seconds (25.6-37.1) H 04/06/18 06:15 Sodium 136 mmol/l (132-148) 04/06/18 06:15 Potassium 3.8 MMOL/L (3.6-5.0) 04/06/18 06:15 Chloride 98 mmol/L (98-107) 04/06/18 06:15 Carbon Dioxide 28 mmol/L (22-30) 04/06/18 06:15 Anion Gap 14 (10-20) 04/06/18 06:15 BUN 24 mg/dl (9-20) H 04/06/18 06:15 Creatinine 1.0 mg/dl (0.8-1.5) 04/06/18 06:15 Est GFR ( Amer) > 60 04/06/18 06:15 Est GFR (Non-Af Amer) > 60 04/06/18 06:15 POC Glucose (mg/dL) 118 mg/dL (65-110) H 04/06/18 05:31 Random Glucose 122 mg/dL (75-110) H 04/06/18 06:15 Hemoglobin A1c 6.8 % (4.2-6.5) H 03/31/18 05:30 Calcium 8.6 mg/dL (8.4-10.2) 04/06/18 06:15 Phosphorus 3.1 mg/dl (2.5-4.5) 03/31/18 05:30 Magnesium 2.0 MG/DL (1.6-2.3) 03/31/18 05:30 Total Bilirubin 1.0 mg/dl (0.2-1.3) 04/03/18 04:30 AST 55 U/L (17-59) 04/03/18 04:30 ALT 28 U/L (21-72) 04/03/18 04:30 Alkaline Phosphatase 109 U/L (38-126) 04/03/18 04:30 Troponin I 0.0170 ng/mL (0.00-0.120) 03/31/18 02:08 NT-Pro-B Natriuret Pep 706 pg/ml (0-900) 03/31/18 05:30 Total Protein 7.4 G/DL (6.3-8.2) 04/03/18 04:30 Albumin 3.8 g/dL (3.5-5.0) 04/03/18 04:30 Globulin 3.6 gm/dL (2.2-3.9) 04/03/18 04:30 Albumin/Globulin Ratio 1.0 (1.0-2.1) 04/03/18 04:30 Triglycerides 46 mg/DL (0-149) 03/31/18 05:30 Cholesterol 130 mg/dL (0-199) 03/31/18 05:30 LDL Cholesterol Direct 57 mg/dL (0-129) 03/31/18 05:30 HDL Cholesterol 72 MG/DL (30-70) H 03/31/18 05:30 Vitamin B12 729 pg/mL (239-931) 03/31/18 05:30 TSH 3rd Generation 1.13 mIU/ML (0.46-4.68) 03/31/18 05:30 - Hospital Course Hospital Course: 87 yr old M admitted for ACS and EKG findings for lateral wall ischemia with significant PMHx including CAD s/p CABG > 5 yrs ago, A-fib, pacemaker placement, hypothyroidism, BPH, NIDDM type 2. Cardiology consulted, Dr. Limon, pt started on heparin drip and subsequently took patient for cardiac catheterization on 04/03/18, revealed severe triple vessel disease, recommend aggressive medical management, risk factor modification. Patient had echo on 03/30/17: EF of 55-60%, PPM lead noted in right ventricle. Patient has chronic GERD - GI referral to be done outpatient. He has NIDDM, controlled off medications, last Hga1c: 6.8 on 03/31/17. Hypothyroidism: controlled, TSH is 1.13 Patient discharged to TCU for further rehabilitation for physical deconditioning and bridging to coumadin. Therapeutic lovenox started today: lovenox 50mg sc q12 Patient was seen and examined with Dr. Dixon Medications: Aspirin 81 mg PO daily Atorvastatin 10mg PO HS Colace 100mg PO daily Lovenox 50 mg SC q12 Levothyroxine 75 mcg PO daily Losartan 25mg PO daily Toprol XL 25mg PO daily Protonix 40mg PO daily Miralax 15gm PO daily Sucralfate 1gm po BID Temazapam 15mg HS Coumadin Discharge Exam - Head Exam Head Exam: NORMAL INSPECTION Additional comments: cachectic elderly male - Eye Exam Eye Exam: EOMI, Normal appearance, PERRL - Respiratory Exam Respiratory Exam: Clear to PA & Lateral, NORMAL BREATHING PATTERN. absent: Rales, Rhonchi, Wheezes - Cardiovascular Exam Cardiovascular Exam: REGULAR RHYTHM (distant heart sounds), +S1, +S2 - GI/Abdominal Exam GI & Abdominal Exam: Soft, Unremarkable. absent: Distended - Neurological Exam Neurological exam: Alert, CN II-XII Intact Additional comments: gait not assessed - Psychiatric Exam Psychiatric exam: Flat Affect - Skin Skin Exam: Dry, Intact, Normal Color, Warm Discharge Plan - Follow Up Plan Condition: FAIR Disposition: REHAB FACILITY/REHAB UNIT Instructions: Coronary Heart Disease (DC) Referrals: John Limon MD [Staff Provider] - Stoney Shelley MD [Staff Provider] - Lucio Carmen MD [Family Provider] - <ZackElianaNataliaedelmira Dumas - Last Filed: 04/06/18 14:53> Provider - Provider Date of Admission: 03/30/18 11:10 Attending physician: Lucio Carmen MD Consults: 03/30/18 12:14 Cardiology Consult Routine Comment: ACS, PMHx CAD s/p CABG, Afibm CHF, HLD, HTN, hypot Consulting Provider: John Limon Consulting Physician: John Limon Reason for Consult: ACS, PMHx CAD s/p CABG, Afibm CHF, HLD, HTN, hypothyroidism, Anxiety Hospital Course - Lab Results Lab Results: Micro Results 04/03/18 07:48 Naris MRSA Culture (Admit) - Final MRSA NOT DETECTED 04/03/18 18:28 Naris MRSA Culture (Admit) - Final MRSA NOT DETECTED 03/30/18 09:50 Naris MRSA Culture (Admit) - Final MRSA NOT DETECTED Most Recent Lab Values WBC 6.0 K/uL (4.8-10.8) 04/06/18 06:15 RBC 3.95 Mil/uL (4.40-5.90) L 04/06/18 06:15 Hgb 11.6 g/dL (12.0-18.0) L 04/06/18 06:15 Hct 34.6 % (35.0-51.0) L 04/06/18 06:15 MCV 87.6 fl (80.0-94.0) D 04/06/18 06:15 MCH 29.5 pg (27.0-31.0) 04/06/18 06:15 MCHC 33.6 g/dL (33.0-37.0) 04/06/18 06:15 RDW 14.5 % (11.5-14.5) 04/06/18 06:15 Plt Count 185 K/uL (130-400) 04/06/18 06:15 MPV 9.7 fl (7.2-11.7) 03/31/18 05:30 Neut % (Auto) 55.1 % (50.0-75.0) 03/31/18 05:30 Lymph % (Auto) 23.1 % (20.0-40.0) 03/31/18 05:30 [place] % (Auto) 16.2 % (0.0-10.0) H 03/31/18 05:30 Eos % (Auto) 4.8 % (0.0-4.0) H 03/31/18 05:30 Baso % (Auto) 0.8 % (0.0-2.0) 03/31/18 05:30 Neut # (Auto) 3.5 K/uL (1.8-7.0) 03/31/18 05:30 Lymph # (Auto) 1.4 K/uL (1.0-4.3) 03/31/18 05:30 [place] # (Auto) 1.0 K/uL (0.0-0.8) H 03/31/18 05:30 Eos # (Auto) 0.3 K/uL (0.0-0.7) 03/31/18 05:30 Baso # (Auto) 0.1 K/uL (0.0-0.2) 03/31/18 05:30 PT 16.3 Seconds (9.8-13.1) H 04/06/18 06:15 INR 1.4 04/06/18 06:15 APTT 98.7 Seconds (25.6-37.1) H 04/06/18 06:15 Sodium 136 mmol/l (132-148) 04/06/18 06:15 Potassium 3.8 MMOL/L (3.6-5.0) 04/06/18 06:15 Chloride 98 mmol/L (98-107) 04/06/18 06:15 Carbon Dioxide 28 mmol/L (22-30) 04/06/18 06:15 Anion Gap 14 (10-20) 04/06/18 06:15 BUN 24 mg/dl (9-20) H 04/06/18 06:15 Creatinine 1.0 mg/dl (0.8-1.5) 04/06/18 06:15 Est GFR ( Amer) > 60 04/06/18 06:15 Est GFR (Non-Af Amer) > 60 04/06/18 06:15 POC Glucose (mg/dL) 118 mg/dL (65-110) H 04/06/18 05:31 Random Glucose 122 mg/dL (75-110) H 04/06/18 06:15 Hemoglobin A1c 6.8 % (4.2-6.5) H 03/31/18 05:30 Calcium 8.6 mg/dL (8.4-10.2) 04/06/18 06:15 Phosphorus 3.1 mg/dl (2.5-4.5) 03/31/18 05:30 Magnesium 2.0 MG/DL (1.6-2.3) 03/31/18 05:30 Total Bilirubin 1.0 mg/dl (0.2-1.3) 04/03/18 04:30 AST 55 U/L (17-59) 04/03/18 04:30 ALT 28 U/L (21-72) 04/03/18 04:30 Alkaline Phosphatase 109 U/L (38-126) 04/03/18 04:30 Troponin I 0.0170 ng/mL (0.00-0.120) 03/31/18 02:08 NT-Pro-B Natriuret Pep 706 pg/ml (0-900) 03/31/18 05:30 Total Protein 7.4 G/DL (6.3-8.2) 04/03/18 04:30 Albumin 3.8 g/dL (3.5-5.0) 04/03/18 04:30 Globulin 3.6 gm/dL (2.2-3.9) 04/03/18 04:30 Albumin/Globulin Ratio 1.0 (1.0-2.1) 04/03/18 04:30 Triglycerides 46 mg/DL (0-149) 03/31/18 05:30 Cholesterol 130 mg/dL (0-199) 03/31/18 05:30 LDL Cholesterol Direct 57 mg/dL (0-129) 03/31/18 05:30 HDL Cholesterol 72 MG/DL (30-70) H 03/31/18 05:30 Vitamin B12 729 pg/mL (239-931) 03/31/18 05:30 TSH 3rd Generation 1.13 mIU/ML (0.46-4.68) 03/31/18 05:30 Attending/Attestation - Attestation I have personally seen and examined this patient.: Yes I have fully participated in the care of the patient.: Yes I have reviewed all pertinent clinical information, including history, physical exam and plan: Yes Notes (Text): Acute Coronary Syndrome Chronic A Fib HTN DM Type II Hypothyroidism Physical Deconditioning - d/c pt to TCU for physical therapy - Change Heparin to therapeutic Lovenox to bridge while INR is subtherapeutic - cont med
== END 2018-04-06 14:10 | DRG 287 ==
LOC: H.ER 10:34 → H.ERHOLD 11:10 → H.ICU/CCU 12:53 → H.TEL 04-03 21:24
PROVIDERS: ADMIT Family Medicine; ATTEND Family Medicine
PROC: 4A023N7 Measurement of Cardiac Sampling and Pressure, Left Heart, Percutaneous Approach (ICD-10-PCS; principal; 2018-04-03)
PROC: B206YZZ Plain Radiography of Right and Left Heart using Other Contrast (ICD-10-PCS; 2018-04-03)
DX: I24.9 Acute ischemic heart disease, unspecified (principal); I25.119 Atherosclerotic heart disease of native coronary artery with unspecified angina pectoris; R64 Cachexia; Z68.1 Body mass index [BMI] 19.9 or less, adult; I48.2 Chronic atrial fibrillation; E11.9 Type 2 diabetes mellitus without complications; Z95.1 Presence of aortocoronary bypass graft; K21.9 Gastro-esophageal reflux disease without esophagitis; E03.9 Hypothyroidism, unspecified; I10 Essential (primary) hypertension; E78.5 Hyperlipidemia, unspecified; E78.00 Pure hypercholesterolemia, unspecified; N40.0 Benign prostatic hyperplasia without lower urinary tract symptoms; K59.09 Other constipation; M19.90 Unspecified osteoarthritis, unspecified site; R13.10 Dysphagia, unspecified; F41.9 Anxiety disorder, unspecified; F32.9 Major depressive disorder, single episode, unspecified; Z95.0 Presence of cardiac pacemaker; Z96.653 Presence of artificial knee joint, bilateral; Z87.891 Personal history of nicotine dependence; Z79.01 Long term (current) use of anticoagulants; Z79.02 Long term (current) use of antithrombotics/antiplatelets; Z79.84 Long term (current) use of oral hypoglycemic drugs; Z87.11 Personal history of peptic ulcer disease

== ENCOUNTER 2018-04-06 12:34 | Inpatient (IN) | payer OTHER, MEDICAID ==
[2018-04-06 12:59] VITALS: BMI 17.8
[2018-04-06 14:32] VITALS: RESP 20
[2018-04-06] MEDS ORDERED: Nitroglycerin 2% Ointment Foilpak UD TOP PRN (14:38)
[2018-04-06] MEDS: Sucralfate 1 gm/10 ml Oral Susp UD PO SCH (16:57)
[2018-04-06] MEDS: Enoxaparin 60 mg Syringe SC SCH (21:12)
[2018-04-06] MEDS ORDERED: POLYETHYLENE GLYCOL 3350 17 GM/Dose PACKET PO SCH (22:00)
[2018-04-07 07:29] LABS: INR 1.7
[2018-04-07] MEDS: Enoxaparin 60 mg Syringe SC SCH ×2 (08:50→22:21)
[2018-04-07] MEDS: Pantoprazole 40 mg EC Tab PO SCH (08:51)
[2018-04-07] MEDS: Metoprolol Succinate 25 mg XL Tab PO SCH (08:52)
[2018-04-07] MEDS: Sucralfate 1 gm/10 ml Oral Susp UD PO SCH ×2 (08:53→16:29)
[2018-04-07] MEDS: POLYETHYLENE GLYCOL 3350 17 GM/Dose PACKET PO SCH (09:00)
[2018-04-07] MEDS: Levothyroxine 25 MCG TAB PO SCH (09:10)
--- NOTE | 2018-04-07 09:53 | CP.PCM.HP ---
<Alberto Benitez - Last Filed: 04/07/18 12:31> History of Present Illness - History of Present Illness History of Present Illness: Patient seen and examined with attending. 87 yo M with hx CAD (s/p CABG at [facility] more than 3 yrs ago), A-fib, pacemaker placement, hypothyroidism, BPH, NIDDM dysphasia, anxiety admitted for rehabiliation s/p STEMI with subsequent cardiac catheterization that revealed severe triple vessel disease. Patient has been doing well after catheterization. No complaints today. PMD: Dr. Carmen Stationary Engineer Apprentice: Dr. Shelley; pt states he sees Dr. Shelley at least yearly for pacemaker check Med hx: via eCW CAD (s/p CABG at [facility] more than 3 yrs ago), A-fib, pacemaker placement, hypothyroidism, BPH, diabetes mellitus type 2, anxiety Surg hx: CABG, multivessel at [facility] (pt does not know year, however mentioned in first eCW note in 2014), pacemaker placement, cardiac cath Mar Fam hx: noncontributory, no hx of CV disease as per pt Social hx: former smoker (age [age]), about 1-2 cig/day; denies alcohol or drug use. Lives alone, has homemaker 3 hrs a day M-F. Son lives in [place]. Allergies: nkda Meds: as per last eCW note 02/15/18: temazepam 30 mg qhs prn, levothyroxine 75 mcg qd, metoprolol succinate ER 25 mg qd, losartan 25 mg qd, atorvastatin 10 mg qd, coumadin 3 mg qd, omeprazole 20 mg qd, miralax 1 pckt qd, bisacodyl 5 mg prn, ranitidine 300mg qhs, flonase qd Code status discussed with pt - full code. Next of kin/person to notify: Maynor Sarmiento Jr, son Present on Admission - Present on Admission Any Indicators Present on Admission: No History of DVT/PE: No History of Uncontrolled Diabetes: No Review of Systems - Constitutional Constitutional: absent: Chills, Headache - EENT Eyes: absent: Change in Vision - Cardiovascular Cardiovascular: absent: Chest Pain, Chest Pain at Rest, Dyspnea, Leg Edema - Respiratory Respiratory: absent: Cough, Dyspnea, Dyspnea on Exertion, Chest Congestion - Gastrointestinal Gastrointestinal: Dysphagia. absent: Abdominal Pain, Change in Bowel Habits, Constipation - Musculoskeletal Musculoskeletal: absent: Myalgias Past Patient History - Infectious Disease Hx of Infectious Diseases: None - Tetanus Immunizations Tetanus Immunization: Unknown - Past Medical History & Family History Past Medical History?: Yes - Past Social History Smoking Status: Former Smoker - CARDIAC Hx Hypercholesterolemia: Yes Hx Hypertension: Yes - PULMONARY Hx Respiratory Disorders: No - NEUROLOGICAL Hx Neurological Disorder: No - HEENT Hx HEENT Problems: No - RENAL Hx Chronic Kidney Disease: No - ENDOCRINE/METABOLIC Hx Hypothyroidism: Yes - HEMATOLOGICAL/ONCOLOGICAL Hx Human Immunodeficiency Virus (HIV): No - INTEGUMENTARY Hx Dermatological Problems: No - MUSCULOSKELETAL/RHEUMATOLOGICAL Hx Arthritis: Yes Hx Falls: No - GASTROINTESTINAL Hx Gastrointestinal Disorders: Yes Hx Constipation: Yes - GENITOURINARY/GYNECOLOGICAL Hx Genitourinary Disorders: Yes Hx Prostate Problems: Yes - PSYCHIATRIC Hx Anxiety: Yes Hx Depression: Yes Hx Substance Use: No - SURGICAL HISTORY Hx Coronary Artery Bypass Graft: Yes Other/Comment: CAGB. s/p cardiac cath 04/03/18 - ANESTHESIA Hx Anesthesia: Yes Hx Anesthesia Reactions: No Hx Malignant Hyperthermia: No Meds Allergies/Adverse Reactions: Allergies Allergy/AdvReac Type Severity Reaction Status Date / Time No Known Allergies Allergy Verified 04/06/18 12:59 Physical Exam - Constitutional Appears: Non-toxic, No Acute Distress, Cachectic - Head Exam Head Exam: ATRAUMATIC, NORMAL INSPECTION, NORMOCEPHALIC - Eye Exam Eye Exam: EOMI, Normal appearance, PERRL - ENT Exam ENT Exam: Mucous Membranes Moist, Normal Exam - Respiratory Exam Respiratory Exam: Clear to Auscultation Bilateral, NORMAL BREATHING PATTERN. absent: Decreased Breath Sounds, Rales, Rhonchi, Wheezes - Cardiovascular Exam Cardiovascular Exam: REGULAR RHYTHM, +S1, +S2. absent: Bradycardia, Tachycardia Additional comments: distant heart sounds - GI/Abdominal Exam GI & Abdominal Exam: Normal Bowel Sounds, Soft. absent: Tenderness - Extremities Exam Extremities exam: Positive for: normal inspection. Negative for: pedal edema, tenderness - Neurological Exam Neurological exam: Alert Results - Vital Signs Recent Vital Signs: Last Vital Signs Temp 97.6 F 04/07/18 08:29 Pulse 72 04/07/18 08:52 Resp 20 04/07/18 08:29 BP 121/67 04/07/18 08:52 Pulse Ox 98 04/07/18 08:29 - Labs Labs: Laboratory Results - last 24 hr 04/07/18 07:00 PT 19.0 H INR 1.7 Assessment & Plan - Assessment and Plan (Free Text) Assessment: 87 yr old M with multiple comorbidities, s/p STEMI with subsequent cardiac catheterization without stent placement, admitted for physical debility and bridging to coumadin .Currently on therapeutic lovenox and coumadin until INR is therapeutic. Patient has been hemodynamically stable, He has good appetite, eating well. #. Physical Debility #. CAD, chronic #. HTN, chronic, controlled #. Afib, chronic, paced rhythm #. GERD, chronic controlled #. Hypothyroidism, chronic, controlled #. Anxiety/ Depression, chronic controlled #. Constipation, chronic, controlled #. Hx of NIDDM2-, chronic controlled of medications #. Cachexia #. Dysphagia #. GI/DIET prophylaxis Plan: -PT/OT- -home medications resumed: comorbid conditions are controlled. -Lovenox 50mg SC q12 -Coumadin day #4 (recieved 3mg x2, then 5mg dose) 3 mg ordered for Today: INR is 1.[address] Dixon. <Natalia Dixon - Last Filed: 04/07/18 17:02> Results - Vital Signs Recent Vital Signs: Last Vital Signs Temp 98.2 F 04/07/18 16:37 Pulse 75 04/07/18 16:37 Resp 20 04/07/18 16:37 BP 103/55 L 04/07/18 16:37 Pulse Ox 97 04/07/18 16:37 - Labs Labs: Laboratory Results - last 24 hr 04/07/18 07:00 PT 19.0 H INR 1.7 Attending/Attestation - Attestation I have personally seen and examined this patient.: Yes I have fully participated in the care of the patient.: Yes I have reviewed all pertinent clinical information: Yes
[2018-04-07] MEDS: Phenol 1.4% Throat Spray MT PRN (22:21)
[2018-04-08 06:48] LABS: HEMOGLOBIN 12.3 g/dL (12.0-18.0); MEAN CELL VOLUME 87.5 fl (80.0-94.0); MEAN CORPUSCULAR HEMOGLOBIN 29.6 pg (27.0-31.0); MEAN CORPUSCULAR HGB CONC 33.8 g/dL (33.0-37.0); RBC 4.18 Mil/uL (4.40-5.90); RED CELL DISTRIBUTION WIDTH 14.5 % (11.5-14.5); WHITE BLOOD COUNT 5.2 K/uL (4.8-10.8)
[2018-04-08 06:55] LABS: BLOOD UREA NITROGEN 22 mg/dl (9-20); CALCIUM 8.8 mg/dL (8.4-10.2); GFR NON-AFRICAN AMERICAN > 60
[2018-04-08 07:23] LABS: PROTHROMBIN TIME 23.2 Seconds (9.8-13.1)
[2018-04-08] MEDS: Levothyroxine 25 MCG TAB PO SCH (07:37)
[2018-04-08] MEDS: Enoxaparin 60 mg Syringe SC SCH (09:50)
[2018-04-08] MEDS: Sucralfate 1 gm/10 ml Oral Susp UD PO SCH ×2 (09:51→16:44)
[2018-04-08] MEDS: Pantoprazole 40 mg EC Tab PO SCH (09:52)
[2018-04-08] MEDS: Metoprolol Succinate 25 mg XL Tab PO SCH (09:52)
[2018-04-08] MEDS: POLYETHYLENE GLYCOL 3350 17 GM/Dose PACKET PO SCH (09:52)
[2018-04-08] MEDS: Phenol 1.4% Throat Spray MT PRN ×2 (09:56→23:16)
--- NOTE | 2018-04-08 17:26 | CP.PCM.PN ---
Subjective - Date & Time of Evaluation Date of Evaluation: 04/08/18 Time of Evaluation: 12:30 - Subjective Subjective: Patient seen and examined bedside with attending. Sitting upright in bed. Feeling well. Eating well. INR 2.0 today continue coumadin d/c lovenox continue pt/ot Objective - Vital Signs/Intake and Output Vital Signs (last 24 hours): Temp Pulse Resp BP Pulse Ox 97.6 F 65 20 120/64 100 04/08/18 16:40 04/08/18 16:40 04/08/18 16:40 04/08/18 16:40 04/08/18 16:40 - Medications Medications: Current Medications Acetaminophen (Tylenol 325mg Tab) 650 mg PO Q6 PRN PRN Reason: Pain, moderate (4-7) Last Admin: 04/07/18 09:05 Dose: 650 mg Aspirin (Aspirin Chewable) 81 mg PO DAILY [facility] Last Admin: 04/08/18 09:51 Dose: 81 mg Atorvastatin Calcium (Lipitor) 10 mg PO HS [facility] Last Admin: 04/07/18 22:21 Dose: 10 mg Docusate Sodium (Colace) 100 mg PO BID [facility] Last Admin: 04/08/18 16:45 Dose: 100 mg Enoxaparin Sodium (Lovenox) 50 mg SC Q12 [facility]; Protocol Last Admin: 04/08/18 09:50 Dose: 50 mg Levothyroxine Sodium (Synthroid) 25 mcg PO DAILY@0630 [facility] Last Admin: 04/08/18 07:37 Dose: 25 mcg Losartan Potassium (Cozaar) 25 mg PO DAILY [facility] Last Admin: 04/08/18 09:51 Dose: 25 mg Metoprolol Succinate (Toprol Xl) 25 mg PO DAILY [facility] Last Admin: 04/08/18 09:52 Dose: 25 mg Nitroglycerin (Nitro-Bid 2% Oint) 1 ea TOP Q4 PRN PRN Reason: chest pain Pantoprazole Sodium (Protonix Ec Tab) 40 mg PO DAILY [facility] Last Admin: 04/08/18 09:52 Dose: 40 mg Phenol/Menthol (Phenaseptic 1.4% Throat [place]) 1 spry MT Q2 PRN PRN Reason: Pain, moderate (4-7) Last Admin: 04/08/18 09:56 Dose: 1 spr Polyethylene Glycol (Miralax) 17 gm PO DAILY [facility] Last Admin: 04/08/18 09:52 Dose: 17 gm Sucralfate (Carafate Oral Susp) 1 gm PO BID [facility] Last Admin: 04/08/18 16:44 Dose: 1 gm Temazepam (Restoril) 15 mg PO HS [facility] Last Admin: 04/07/18 22:21 Dose: 15 mg - Labs Labs: 04/08/18 06:32 04/08/18 06:32 PT 23.2 Seconds (9.8-13.1) H 04/08/18 06:32 INR 2.0 04/08/18 06:32 Assessment and Plan - Assessment and Plan (Free Text) Assessment: 87 yr old M with multiple comorbidities, s/p STEMI with subsequent cardiac catheterization without stent placement, admitted for physical debility and bridging to coumadin Patient has been hemodynamically stable. He has good appetite, eating well. #. Physical Debility #. CAD, chronic #. HTN, chronic, controlled #. Afib, chronic, paced rhythm #. GERD, chronic controlled #. Hypothyroidism, chronic, controlled #. Anxiety/ Depression, chronic controlled #. Constipation, chronic, controlled #. Hx of NIDDM2-, chronic controlled of medications #. Cachexia #. Dysphagia #. GI/DIET prophylaxis Plan: -PT/OT- -home medications resumed: comorbid conditions are controlled. -d/c today : Lovenox 50mg SC q12 -continue comumadin 3mg case d/w Dr. Carmen
--- NOTE | 2018-04-08 17:47 | CP.PCM.PN ---
Subjective - Date & Time of Evaluation Date of Evaluation: 04/08/18 Time of Evaluation: 17:47 - Subjective Subjective: Christiano Holguin DO PGY1 - Internal Medicine Inspector And Clipper - Cardiology Note for Dr. Limon Seen and examined at bedside; No acute events overnight; No chest pain, sob, palpitations. Remainder 12 system ROS is negative. Objective - Vital Signs/Intake and Output Vital Signs (last 24 hours): Temp Pulse Resp BP Pulse Ox 97.6 F 65 20 120/64 100 04/08/18 16:40 04/08/18 16:40 04/08/18 16:40 04/08/18 16:40 04/08/18 16:40 - Medications Medications: Current Medications Acetaminophen (Tylenol 325mg Tab) 650 mg PO Q6 PRN PRN Reason: Pain, moderate (4-7) Last Admin: 04/07/18 09:05 Dose: 650 mg Aspirin (Aspirin Chewable) 81 mg PO DAILY [facility] Last Admin: 04/08/18 09:51 Dose: 81 mg Atorvastatin Calcium (Lipitor) 10 mg PO HS [facility] Last Admin: 04/07/18 22:21 Dose: 10 mg Docusate Sodium (Colace) 100 mg PO BID [facility] Last Admin: 04/08/18 16:45 Dose: 100 mg Enoxaparin Sodium (Lovenox) 50 mg SC Q12 [facility]; Protocol Last Admin: 04/08/18 09:50 Dose: 50 mg Levothyroxine Sodium (Synthroid) 25 mcg PO DAILY@0630 [facility] Last Admin: 04/08/18 07:37 Dose: 25 mcg Losartan Potassium (Cozaar) 25 mg PO DAILY [facility] Last Admin: 04/08/18 09:51 Dose: 25 mg Metoprolol Succinate (Toprol Xl) 25 mg PO DAILY [facility] Last Admin: 04/08/18 09:52 Dose: 25 mg Nitroglycerin (Nitro-Bid 2% Oint) 1 ea TOP Q4 PRN PRN Reason: chest pain Pantoprazole Sodium (Protonix Ec Tab) 40 mg PO DAILY [facility] Last Admin: 04/08/18 09:52 Dose: 40 mg Phenol/Menthol (Phenaseptic 1.4% Throat [place]) 1 spry MT Q2 PRN PRN Reason: Pain, moderate (4-7) Last Admin: 04/08/18 09:56 Dose: 1 spr Polyethylene Glycol (Miralax) 17 gm PO DAILY [facility] Last Admin: 04/08/18 09:52 Dose: 17 gm Sucralfate (Carafate Oral Susp) 1 gm PO BID [facility] Last Admin: 04/08/18 16:44 Dose: 1 gm Temazepam (Restoril) 15 mg PO HS [facility] Last Admin: 04/07/18 22:21 Dose: 15 mg - Labs Labs: 04/08/18 06:32 04/08/18 06:32 PT 23.2 Seconds (9.8-13.1) H 04/08/18 06:32 INR 2.0 04/08/18 06:32 Assessment and Plan (1) CAD (coronary artery disease) Status: Acute (2) Atrial fibrillation with RVR Status: Acute (3) A-fib Status: Chronic (4) ACS (acute coronary syndrome) Status: Resolved - Assessment and Plan (Free Text) Plan: Patient transitioned to TCU POST CATH [place]ing well post procedure; patent bypass graft. Patient has a longstanding Hx of Afib; needs to resume warfarin Will need to continue heparin drip until his INR is therapeutic Continue patient on aspirin 81 daily, Lipitor 10 daily, cozaar 25 daily, Me troprolol 25 daily.
[2018-04-09] MEDS: Levothyroxine 25 MCG TAB PO SCH (06:20)
[2018-04-09 06:49] LABS: MEAN CELL VOLUME 88.4 fl (80.0-94.0); MEAN CORPUSCULAR HEMOGLOBIN 30.5 pg (27.0-31.0); MEAN CORPUSCULAR HGB CONC 34.5 g/dL (33.0-37.0); RBC 4.26 Mil/uL (4.40-5.90); RED CELL DISTRIBUTION WIDTH 14.6 % (11.5-14.5); WHITE BLOOD COUNT 4.6 K/uL (4.8-10.8)
[2018-04-09 07:36] LABS: INR 2.1; PROTHROMBIN TIME 23.7 Seconds (9.8-13.1)
[2018-04-09] MEDS: POLYETHYLENE GLYCOL 3350 17 GM/Dose PACKET PO SCH (08:30)
[2018-04-09] MEDS: Pantoprazole 40 mg EC Tab PO SCH (08:31)
[2018-04-09] MEDS: Metoprolol Succinate 25 mg XL Tab PO SCH (08:31)
[2018-04-09] MEDS: Sucralfate 1 gm/10 ml Oral Susp UD PO SCH ×2 (08:32→16:22)
[2018-04-09] MEDS: Phenol 1.4% Throat Spray MT PRN (23:12)
[2018-04-10] MEDS: Levothyroxine 25 MCG TAB PO SCH (06:10)
[2018-04-10 06:29] LABS: INR 2.2; PROTHROMBIN TIME 24.8 Seconds (9.8-13.1)
[2018-04-10] MEDS: POLYETHYLENE GLYCOL 3350 17 GM/Dose PACKET PO SCH (08:13)
[2018-04-10] MEDS: Sucralfate 1 gm/10 ml Oral Susp UD PO SCH ×2 (08:13→17:09)
[2018-04-10] MEDS: Metoprolol Succinate 25 mg XL Tab PO SCH (08:14)
[2018-04-10] MEDS: Pantoprazole 40 mg EC Tab PO SCH (08:14)
--- NOTE | 2018-04-10 17:11 | CP.PCM.PN ---
Subjective - Date & Time of Evaluation Date of Evaluation: 04/10/18 Time of Evaluation: 17:11 - Subjective Subjective: No acute overnight events. continue PT/OT. Eating well. anticoagulated on Coumadin Objective - Vital Signs/Intake and Output Vital Signs (last 24 hours): Temp Pulse Resp BP Pulse Ox 98.0 F 91 H 20 128/67 97 04/10/18 15:50 04/10/18 15:50 04/10/18 15:50 04/10/18 15:50 04/10/18 15:50 - Medications Medications: Current Medications Acetaminophen (Tylenol 325mg Tab) 650 mg PO Q6 PRN PRN Reason: Pain, moderate (4-7) Last Admin: 04/09/18 22:15 Dose: 650 mg Aspirin (Aspirin Chewable) 81 mg PO DAILY [facility] Last Admin: 04/10/18 08:14 Dose: 81 mg Atorvastatin Calcium (Lipitor) 10 mg PO HS [facility] Last Admin: 04/09/18 21:18 Dose: 10 mg Docusate Sodium (Colace) 100 mg PO BID [facility] Last Admin: 04/10/18 08:14 Dose: 100 mg Levothyroxine Sodium (Synthroid) 25 mcg PO DAILY@0630 [facility] Last Admin: 04/10/18 06:10 Dose: 25 mcg Losartan Potassium (Cozaar) 25 mg PO DAILY [facility] Last Admin: 04/10/18 08:14 Dose: 25 mg Metoprolol Succinate (Toprol Xl) 25 mg PO DAILY [facility] Last Admin: 04/10/18 08:14 Dose: 25 mg Nitroglycerin (Nitro-Bid 2% Oint) 1 ea TOP Q4 PRN PRN Reason: chest pain Pantoprazole Sodium (Protonix Ec Tab) 40 mg PO DAILY [facility] Last Admin: 04/10/18 08:14 Dose: 40 mg Phenol/Menthol (Phenaseptic 1.4% Throat [place]) 1 spry MT Q2 PRN PRN Reason: Pain, moderate (4-7) Last Admin: 04/09/18 23:12 Dose: 1 spr Polyethylene Glycol (Miralax) 17 gm PO DAILY [facility] Last Admin: 04/10/18 08:13 Dose: 17 gm Sucralfate (Carafate Oral Susp) 1 gm PO BID [facility] Last Admin: 04/10/18 08:13 Dose: 1 gm Temazepam (Restoril) 15 mg PO HS [facility] Last Admin: 04/09/18 23:11 Dose: 15 mg - Labs Labs: 04/09/18 05:45 04/08/18 06:32 PT 24.8 Seconds (9.8-13.1) H 04/10/18 05:31 INR 2.2 04/10/18 05:31 - Constitutional Appears: Well, No Acute Distress - Head Exam Head Exam: ATRAUMATIC, NORMAL INSPECTION, NORMOCEPHALIC - Respiratory Exam Respiratory Exam: Clear to Ausculation Bilateral, NORMAL BREATHING PATTERN - Cardiovascular Exam Cardiovascular Exam: REGULAR RHYTHM, +S1, +S2 - Neurological Exam Neurological Exam: Alert, Awake, Oriented x3 - Psychiatric Exam Psychiatric exam: Normal Affect, Normal Mood - Skin Skin Exam: Dry, Intact, Normal Color, Warm Assessment and Plan - Assessment and Plan (Free Text) Assessment: 87 yr old M with multiple comorbidities, s/p STEMI with subsequent cardiac catheterization without stent placement, admitted for physical debility and bridging to coumadin .Currently on therapeutic lovenox and coumadin until INR is therapeutic. Patient has been hemodynamically stable, He has good appetite, eating well. #. Physical Debility #. CAD, chronic #. HTN, chronic, controlled #. Afib, chronic, paced rhythm #. GERD, chronic controlled #. Hypothyroidism, chronic, controlled #. Anxiety/ Depression, chronic controlled #. Constipation, chronic, controlled #. Hx of NIDDM2-, chronic controlled of medications #. Cachexia #. Dysphagia #. GI/DIET prophylaxis Plan: -PT/OT- -home medications resumed: comorbid conditions are controlled. -Lovenox discontinued -Coumadin [address] Carmen
[2018-04-10] MEDS: Phenol 1.4% Throat Spray MT SCH (21:57)
[2018-04-11] MEDS: Phenol 1.4% Throat Spray MT SCH ×3 (04:37→21:14)
[2018-04-11] MEDS: Levothyroxine 25 MCG TAB PO SCH (06:07)
[2018-04-11 06:20] LABS: INR 2.2; PROTHROMBIN TIME 25.4 Seconds (9.8-13.1)
[2018-04-11] MEDS: Sucralfate 1 gm/10 ml Oral Susp UD PO SCH ×2 (07:30→17:21)
[2018-04-11] MEDS: POLYETHYLENE GLYCOL 3350 17 GM/Dose PACKET PO SCH (09:17)
[2018-04-11] MEDS: Metoprolol Succinate 25 mg XL Tab PO SCH (09:19)
[2018-04-11] MEDS: Pantoprazole 40 mg EC Tab PO SCH (09:24)
[2018-04-11 17:42] VITALS: O2SAT 97
[2018-04-11] MEDS ORDERED: Benzocaine/Menthol (Cepacol) Lozenge PO PRN (19:16)
[2018-04-12] MEDS: Phenol 1.4% Throat Spray MT SCH ×2 (05:36→12:00)
[2018-04-12] MEDS: Levothyroxine 25 MCG TAB PO SCH (05:50)
[2018-04-12 07:00] LABS: INR 2.3; PROTHROMBIN TIME 25.9 Seconds (9.8-13.1)
[2018-04-12 07:54] VITALS: BP 110/65; TEMP 97.5
[2018-04-12] MEDS: Metoprolol Succinate 25 mg XL Tab PO SCH (08:06)
[2018-04-12] MEDS: Sucralfate 1 gm/10 ml Oral Susp UD PO SCH (08:07)
[2018-04-12] MEDS: Pantoprazole 40 mg EC Tab PO SCH (08:07)
[2018-04-12 08:08] VITALS: PULSE 70
[2018-04-12] MEDS: POLYETHYLENE GLYCOL 3350 17 GM/Dose PACKET PO SCH (08:11)
--- NOTE | 2018-04-12 11:27 | CP.PCM.DIS ---
Provider - Provider Date of Admission: 04/06/18 16:08 Attending physician: Lucio Carmen MD Consults: 04/06/18 14:33 Pastoral Care Referral Routine Comment: Physician Instructions: Reason For Exam: advance directive Time Spent in preparation of Discharge (in minutes): 35 Hospital Course - Lab Results Lab Results: Most Recent Lab Values WBC 4.6 K/uL (4.8-10.8) L 04/09/18 05:45 RBC 4.26 Mil/uL (4.40-5.90) L 04/09/18 05:45 Hgb 13.0 g/dL (12.0-18.0) 04/09/18 05:45 Hct 37.7 % (35.0-51.0) 04/09/18 05:45 MCV 88.4 fl (80.0-94.0) 04/09/18 05:45 MCH 30.5 pg (27.0-31.0) 04/09/18 05:45 MCHC 34.5 g/dL (33.0-37.0) 04/09/18 05:45 RDW 14.6 % (11.5-14.5) H 04/09/18 05:45 Plt Count 263 K/uL (130-400) 04/09/18 05:45 PT 25.9 Seconds (9.8-13.1) H 04/12/18 06:30 INR 2.3 04/12/18 06:30 Sodium 138 mmol/l (132-148) 04/08/18 06:32 Potassium 4.2 MMOL/L (3.6-5.0) 04/08/18 06:32 Chloride 99 mmol/L (98-107) 04/08/18 06:32 Carbon Dioxide 29 mmol/L (22-30) 04/08/18 06:32 Anion Gap 14 (10-20) 04/08/18 06:32 BUN 22 mg/dl (9-20) H 04/08/18 06:32 Creatinine 1.0 mg/dl (0.8-1.5) 04/08/18 06:32 Est GFR ( Amer) > 60 04/08/18 06:32 Est GFR (Non-Af Amer) > 60 04/08/18 06:32 Random Glucose 118 mg/dL (75-110) H 04/08/18 06:32 Calcium 8.8 mg/dL (8.4-10.2) 04/08/18 06:32 Discharge Exam - Head Exam Head Exam: ATRAUMATIC, NORMAL INSPECTION, NORMOCEPHALIC Discharge Plan - Follow Up Plan Condition: GOOD Disposition: HOME/ ROUTINE Referrals: Lucio Carmen MD [Staff Provider] -
== END 2018-04-12 16:00 | disposition home or self-care (01) | DRG 949 ==
LOC: H.TCU 16:08
PROVIDERS: ADMIT Family Medicine; ATTEND Family Medicine
PROC: F07Z9FZ Gait Training/Functional Ambulation Treatment using Assistive, Adaptive, Supportive or Protective Equipment (ICD-10-PCS; principal; 2018-04-06)
PROC: F08Z4FZ Home Management Treatment using Assistive, Adaptive, Supportive or Protective Equipment (ICD-10-PCS; 2018-04-06)
PROC: F07M6FZ Therapeutic Exercise Treatment of Musculoskeletal System - Whole Body using Assistive, Adaptive, Supportive or Protective Equipment (ICD-10-PCS; 2018-04-06)
PROC: F07K6FZ Therapeutic Exercise Treatment of Musculoskeletal System - Upper Back / Upper Extremity using Assistive, Adaptive, Supportive or Protective Equipment (ICD-10-PCS; 2018-04-06)
DX: Z48.812 Encounter for surgical aftercare following surgery on the circulatory system (principal); I24.9 Acute ischemic heart disease, unspecified; R64 Cachexia; Z68.1 Body mass index [BMI] 19.9 or less, adult; I25.10 Atherosclerotic heart disease of native coronary artery without angina pectoris; I48.2 Chronic atrial fibrillation; R53.81 Other malaise; I10 Essential (primary) hypertension; K21.9 Gastro-esophageal reflux disease without esophagitis; R13.10 Dysphagia, unspecified; Z95.1 Presence of aortocoronary bypass graft; Z95.0 Presence of cardiac pacemaker; K59.09 Other constipation; F41.9 Anxiety disorder, unspecified; E78.00 Pure hypercholesterolemia, unspecified; E11.9 Type 2 diabetes mellitus without complications; E03.9 Hypothyroidism, unspecified; N40.0 Benign prostatic hyperplasia without lower urinary tract symptoms; I25.2 Old myocardial infarction; Z79.01 Long term (current) use of anticoagulants; Z79.84 Long term (current) use of oral hypoglycemic drugs; Z87.891 Personal history of nicotine dependence

== ENCOUNTER 2018-04-16 12:27 | Emergency (ER) | payer MEDICARE, MEDICAID ==
[2018-04-16 12:28] VITALS: BMI 17.8
--- NOTE | 2018-04-16 13:42 | ED PDOC ---
HPI: General Adult Chief Complaint (Provider): Throat pain Additional History Per: Patient Additional Complaint(s): 87 yo M with hx CAD (s/p CABG at [facility] more than 3 yrs ago), A-fib, pacemaker placement, hypothyroidism, BPH, NIDDM dysphasia, anxiety comes to the ER c/o chronic throat pain and dizziness. Patient reports throat pain is going on since long time, he visited hospital and ENT many times but noone is doing anything. Its a burning pain, comes and goes, 5/10, non-radiating, not associated with any chest pain. Patient reports chronic dizziness, denies any falls or LOC, reports he feels dizzy whenever he makes sudden body movements and its associated with palpitations. Patient was recently discharged from hospital last weak. PMD: Dr. Carmen Credit Office Manager: Dr. Shelley; pt states he sees Dr. Shelley at least yearly for pacemaker check Med hx: via eCW CAD (s/p CABG at [facility] more than 3 yrs ago), A-fib, pacemaker placement, hypothyroidism, BPH, diabetes mellitus type 2, anxiety Surg hx: CABG, multivessel at [facility] (pt does not know year, however mentioned in first eCW note in 2014), pacemaker placement, cardiac cath Mar Fam hx: noncontributory, no hx of CV disease as per pt Social hx: former smoker (age [age]), about 1-2 cig/day; denies alcohol or drug use. Lives alone, has homemaker 3 hrs a day M-F. Son lives in [place]. Allergies: nkda Meds: as per last eCW note 02/15/18: temazepam 30 mg qhs prn, levothyroxine 75 mcg qd, metoprolol succinate ER 25 mg qd, losartan 25 mg qd, atorvastatin 10 mg qd, coumadin 3 mg qd, omeprazole 20 mg qd, miralax 1 pckt qd, bisacodyl 5 mg prn, ranitidine 300mg qhs, flonase qd <Lizeth Holguin - Last Filed: 04/16/18 15:47> <Meliza Patino - Last Filed: 04/17/18 15:43> Time Seen by Provider: 04/16/18 12:55 Chief Complaint (Nursing): Chest Pain Supervising Attending Note - Supervising Attending Note The Documented history was done by the: Physician Rehabilitator, Attending Physician The documented physical exam was done by the: Physician Rehabilitator, Attending Physician The documented procedures were done by the: Physician Rehabilitator, Attending Physician - Attestation: I have personally seen and examined this patient.: Yes I have fully participated in the care of the patient.: Yes I have reviewed all pertinent clinical information, including history, physical exam and plan: Yes <Meliza Patino - Last Filed: 04/17/18 15:43> Past Medical History Vital Signs: Last Vital Signs Temp 97.2 F L 04/16/18 12:38 Pulse 74 04/16/18 12:38 Resp 16 04/16/18 12:38 BP 132/76 04/16/18 12:38 Pulse Ox 100 04/16/18 12:38 - Medical History PMH: Anxiety, Arthritis, Atrial Fibrillation, CAD, Cardia Arrhythmia, CHF, Depression, Diabetes, HTN, Hypercholesterolemia, Hypothyroidism Denies: HIV, Chronic Kidney Disease - Surgical History Surgical History: CABG, Pacemaker - Family History Family History: States: Unknown Family Hx <Lizeth Holguin - Last Filed: 04/16/18 15:47> Reviewed: Historical Data, Nursing Documentation, Vital Signs Vital Signs: Last Vital Signs Temp 97.2 F L 04/16/18 12:38 Pulse 74 04/16/18 12:38 Resp 16 04/16/18 12:38 BP 132/76 04/16/18 12:38 Pulse Ox 100 04/16/18 14:04 <Meliza Patino - Last Filed: 04/17/18 15:43> - Home Medications Home Medications: Ambulatory Orders Medication Instructions Recorded RX: Acetaminophen [Tylenol 325mg 650 mg PO Q6 PRN tab 04/06/18 tab] RX: Docusate [Colace] 100 mg PO DAILY cap 04/06/18 RX: Aspirin [Aspirin Chewable] 81 mg PO DAILY #30 chew 04/12/18 RX: Atorvastatin [Lipitor] 10 mg PO HS #30 tab 04/12/18 RX: Benzocaine/Menthol [Cepacol 1 clayton PO Q8 #15 clayton 04/12/18 Sore Throat] RX: Levothyroxine [Synthroid] 25 mcg PO DAILY #30 tab 04/12/18 RX: Losartan [Cozaar] 25 mg PO DAILY #30 tab 04/12/18 RX: Metoprolol Succinate XL 25 mg PO DAILY #30 tab 04/12/18 [Toprol XL] RX: Nitroglycerin 2% [Nitro-Bid 2% 1 ea TOP Q4 PRN #1 fp 04/12/18 Oint] RX: Pantoprazole [Protonix EC Tab] 40 mg PO DAILY #30 ect 04/12/18 RX: Phenol 1.4% Topical 1 spry MT Q8H #1 bottle 04/12/18 [Phenaseptic 1.4% Throat [place]] RX: Temazepam [Restoril] 15 mg PO HS #30 cap 04/12/18 RX: Warfarin [Coumadin] 3 mg PO QD5 #14 tab 04/12/18 - Allergies Allergies/Adverse Reactions: Allergies Allergy/AdvReac Type Severity Reaction Status Date / Time No Known Allergies Allergy Verified 04/16/18 12:38 Review of Systems Constitutional: Negative for: Fever Eyes: Negative for: Pain ENT: Positive for: Throat Pain. Negative for: Ear Pain (Ear ringing, chronic ), Nose Pain, Nose Congestion, Mouth Pain, Throat Swelling Cardiovascular: Positive for: Palpitations. Negative for: Chest Pain, Orthopnea, Paroxysmal Noc. Dyspnea Respiratory: Negative for: Cough, Shortness of Breath, Hemoptysis Gastrointestinal: Negative for: Vomiting, Abdominal Pain, Diarrhea Genitourinary Male: Negative for: Dysuria Musculoskeletal: Negative for: Neck Pain, Shoulder Pain Skin: Negative for: Rash Neurological: Negative for: Weakness, Numbness Psych: Negative for: Anxiety <Lizeth Holguin - Last Filed: 04/16/18 15:47> ROS Statement: Except As Marked, All Systems Reviewed And Found Negative <Meliza Patino - Last Filed: 04/17/18 15:43> Physical Exam - Physical Exam Appears: Positive for: No Acute Distress Skin: Positive for: Normal Color Eye Exam: Positive for: Normal appearance, EOMI, PERRL ENT: Positive for: Normal ENT Inspection. Negative for: Sinus Pain/Drainage, Nasal Congestion, Pharyngeal Erythema, Tonsillar Exudate, Tonsillar Swelling Neck: Positive for: Normal, Painless ROM, Supple Cardiovascular/Chest: Positive for: Regular Rate, Rhythm Respiratory: Positive for: Normal Breath Sounds. Negative for: Decreased Breath Sounds, Accessory Muscle Use, Crackles Gastrointestinal/Abdominal: Positive for: Normal Exam, Bowel Sounds, Soft. Negative for: Tenderness Extremity: Positive for: Normal ROM. Negative for: Tenderness Neurologic/Psych: Positive for: Alert, Oriented <Lizeth Holguin - Last Filed: 04/16/18 15:47> - Reviewed Nursing Documentation Reviewed: Yes Vital Signs Reviewed: Yes <Meliza Patino - Last Filed: 04/17/18 15:43> - Laboratory Results Result Diagrams: 04/16/18 13:50 04/16/18 13:50 - ECG O2 Sat by Pulse Oximetry: 100 - Progress ED Course And Treament: A/P: 87 y/o male with chronic throat burning/pain and chronic dizziness. - CBC - CMP - Coag - Trop - EKG Case discussed with Dr. Patino - PMD, Dr. Carmen was called and informed about patient - Labs reviewed - Patient is walking in hallway with out any difficulties Re-evaluation Time: 15:47 Condition: Re-examined <Lizeth Holguin - Last Filed: 04/16/18 15:47> - Laboratory Results Result Diagrams: 04/16/18 13:50 04/16/18 13:50 Lab Results: PT 30.9 Seconds (9.8-13.1) H 04/16/18 13:50 INR 2.7 04/16/18 13:50 APTT 44.3 Seconds (25.6-37.1) H 04/16/18 13:50 Troponin I < 0.0120 ng/mL (0.00-0.120) 04/16/18 13:50 Total Bilirubin 0.4 mg/dl (0.2-1.3) 04/16/18 13:50 AST 31 U/L (17-59) 04/16/18 13:50 ALT 27 U/L (21-72) 04/16/18 13:50 Alkaline Phosphatase 93 U/L (38-126) 04/16/18 13:50 Total Protein 6.9 G/DL (6.3-8.2) 04/16/18 13:50 Albumin 3.4 g/dL (3.5-5.0) L 04/16/18 13:50 Globulin 3.5 gm/dL (2.2-3.9) 04/16/18 13:50 Albumin/Globulin Ratio 1.0 (1.0-2.1) 04/16/18 13:50 <Meliza Patino - Last Filed: 04/17/18 15:43> Medical Decision Making Medical Decision Making: Chronic Throat pain and Dizziness <Fabio Holguinjos - Last Filed: 04/16/18 15:47> Disposition - Patient ED Disposition Is Patient to be Admitted: No Doctor Will See Patient In The: Office - Disposition Disposition: Routine/Home <Fabio Holguinjos - Last Filed: 04/16/18 15:47> - Patient ED Disposition Is Patient to be Admitted: No Discussed With Dr.: Lucio Carmen Doctor Will See Patient In The: Office Counseled Patient/Family Regarding: Studies Performed, Diagnosis - Disposition Disposition: Routine/Home Disposition Time: 15:44 <Meliza Patino - Last Filed: 04/17/18 15:43> - Clinical Impression Clinical Impression: Throat pain, Dizziness - Disposition Referrals: Lucio Carmen MD [Family Provider] - Condition: GOOD Additional Instructions: JUVENCIO LUA, thank you for letting us take care of you today. Your provider was Meliza Patino MD and you were treated for CHEST PAIN, HEADAC HE. The emergency medical care you received today was directed at your acute symptoms. If you were prescribed any medication, please fill it and take as directed. It may take several days for your symptoms to resolve. Return to the Emergency Department if your symptoms worsen, do not improve, or if you have any other problems. Please contact your doctor or call one of the physicians/clinics you have been referred to that are listed on the Patient Visit Information form that is included in your discharge packet. Bring any paperwork you were given at discharge with you along with any medications you are taking to your follow up visit. Our treatment cannot replace ongoing medical care by a primary care provider outside of the emergency department. Thank you for allowing the [facility] team to be part of your care today. If you had an X-Ray or CT scan: A Radiologist will review the ED reading if any change in treatment is needed we will contact you. If you had a blood, urine, or wound culture: It will take several days for the results, if any change in treatment is needed we will contact you. If you had an STI test: It will take 48 hours for the results. Please call after 1 week if you have not heard back. Instructions: Vertigo (a Type of Dizziness), Sore Throat, Adult (DC) Print Language: CAMBODIAN
[2018-04-16 14:00] LABS: BASO # 0.1 K/uL (0.0-0.2); BASO % 2.5 % (0.0-2.0); EOS # 0.3 K/uL (0.0-0.7); EOS % 6.7 % (0.0-4.0); HEMOGLOBIN 11.5 g/dL (12.0-18.0); LYMPH % 22.6 % (20.0-40.0); MEAN CELL VOLUME 88.3 fl (80.0-94.0); MEAN CORPUSCULAR HEMOGLOBIN 29.4 pg (27.0-31.0); MEAN CORPUSCULAR HGB CONC 33.3 g/dL (33.0-37.0); MEAN PLATELET VOLUME 8.9 fl (7.2-11.7); MONO # 0.6 K/uL (0.0-0.8); MONO % 13.6 % (0.0-10.0); NEUT # 2.5 K/uL (1.8-7.0); NEUT % 54.6 % (50.0-75.0); NRBC % 0.1 % (0.0-0.0); RBC 3.91 Mil/uL (4.40-5.90); WHITE BLOOD COUNT 4.5 K/uL (4.8-10.8)
[2018-04-16 14:07] LABS: INR 2.7; PROTHROMBIN TIME 30.9 Seconds (9.8-13.1)
[2018-04-16 14:08] LABS: PARTIAL THROMBOPLASTIN TIME 44.3 Seconds (25.6-37.1)
[2018-04-16 14:16] LABS: ALBUMIN 3.4 g/dL (3.5-5.0); ALT/SGPT 27 U/L (21-72); AST/SGOT 31 U/L (17-59); BLOOD UREA NITROGEN 28 mg/dl (9-20); CALCIUM 8.9 mg/dL (8.4-10.2); GFR NON-AFRICAN AMERICAN 57
[2018-04-16 17:00] VITALS: RESP 18; O2SAT 98
[2018-04-16 17:02] VITALS: BP 120/79; PULSE 71; TEMP 98
--- NOTE | 2018-04-16 18:06 | CARD ---
APPROVED REPORT Date of service: 04/16/2018 EKG Measurement Heart [id number] <Conclusion> Unusual P axis, possible ectopic atrial rhythm Right bundle branch block Left anterior fascicular block Bifascicular block Abnormal ECG
== END 2018-04-16 17:31 | disposition home or self-care (01) ==
LOC: H.ER 12:27
DX: J02.9 Acute pharyngitis, unspecified (principal); R42 Dizziness and giddiness; E03.9 Hypothyroidism, unspecified; E11.9 Type 2 diabetes mellitus without complications; E78.00 Pure hypercholesterolemia, unspecified; I11.0 Hypertensive heart disease with heart failure; Z79.01 Long term (current) use of anticoagulants; Z79.899 Other long term (current) drug therapy

== ENCOUNTER 2018-05-09 09:29 | Emergency (ER) | payer MEDICARE, MEDICAID ==
[2018-05-09 09:47] VITALS: TEMP 98; O2SAT 99; BMI 17.2
--- NOTE | 2018-05-09 10:25 | ED PDOC ---
HPI: General Adult Chief Complaint (Provider): throat burninng History Per: Patient History/Exam Limitations: no limitations Onset/Duration Of Symptoms: Other (chronic) Current Symptoms Are (Timing): Still Present Recently: Treated By A Physician Additional Complaint(s): 87 yo M with hx CAD (s/p CABG at [facility] more than 3 yrs ago), A-fib, pacemaker, hypothyroidism, BPH, NIDDM, chronic dysphasia and heartburn, constipation, anxiety comes to the ER c/o chronic throat pain, constipation, and dizziness. Patient reports throat discomfort has been going on for years and has not changed in nature. Constipation and dizziness are chronic as well. He did not have any acute changes of these chronic conditions since the last time he was seen here in ED last month, and he had visit with PMD 6 days ago. Review of visit states that he was prescribed mylanta BID and ranitidine but patient denies starting new medications. He states he came to ED because he is concerned symptoms are not getting better, though they have been present for a long time. Describes throat pain as burning, 5/10, not radiating. Denies chest pain. Last BM was yesterday, no blood in BM. Denies any falls. PMD: Dr. Lucio Carmen Cold Strip Feeder: Dr. Shelley; pt states he sees Dr. Shelley at least yearly for pacemaker check Med hx: via eCW CAD (s/p CABG at [facility] more than 3 yrs ago), A-fib, pacemaker placement, hypothyroidism, BPH, diabetes mellitus type 2, anxiety Surg hx: CABG, multivessel at [facility] (pt does not know year, however mentioned in first eCW note in 2014), pacemaker placement, cardiac cath Mar Fam hx: noncontributory, no hx of CV disease as per pt Social hx: former smoker (age [age]), about 1-2 cig/day; denies alcohol or drug use. Lives alone, has homemaker 3 hrs a day M-F. Son lives in [place]. Allergies: NKDA Meds: as per last eCW note 05/03/18: temazepam 30 mg qhs prn, levothyroxine 75 mcg qd, metoprolol succinate ER 25 mg qd, losartan 25 mg qd, atorvastatin 10 mg qd, coumadin 2.5 mg qd, omeprazole 20 mg qd, miralax 1 pckt qd, ranitidine 300mg qhs, flonase qd, mylanta qd <Nida Tellez - Last Filed: 05/09/18 13:13> <Meliza Patino - Last Filed: 05/09/18 14:55> Time Seen by Provider: 05/09/18 09:53 Chief Complaint (Nursing): ENT Problem Supervising Attending Note - Supervising Attending Note The Documented history was done by the: Physician Gun Examiner, Attending Physician The documented physical exam was done by the: Physician Gun Examiner, Attending Physician The documented procedures were done by the: Physician Gun Examiner, Attending Physician - Attestation: I have personally seen and examined this patient.: Yes I have fully participated in the care of the patient.: Yes I have reviewed all pertinent clinical information, including history, physical exam and plan: Yes <Meliza Patino - Last Filed: 05/09/18 14:55> Past Medical History Vital Signs: Last Vital Signs Temp 98.0 F 05/09/18 09:46 Pulse 82 05/09/18 09:46 Resp 16 05/09/18 09:46 BP 144/77 05/09/18 09:46 Pulse Ox 99 05/09/18 09:46 - Medical History PMH: Anxiety, Arthritis, Atrial Fibrillation, CAD, Cardia Arrhythmia, CHF, Depression, Diabetes, HTN, Hypercholesterolemia, Hypothyroidism Denies: HIV, Chronic Kidney Disease - Surgical History Surgical History: CABG, Pacemaker - Family History Family History: States: Unknown Family Hx <Nida Tellez - Last Filed: 05/09/18 13:13> Reviewed: Historical Data, Nursing Documentation, Vital Signs Vital Signs: Last Vital Signs Temp 98.0 F 05/09/18 09:46 Pulse 82 05/09/18 09:46 Resp 16 05/09/18 09:46 BP 144/77 05/09/18 09:46 Pulse Ox 99 05/09/18 13:13 <Meliza Patino - Last Filed: 05/09/18 14:55> - Home Medications Home Medications: Ambulatory Orders Medication Instructions Recorded RX: Acetaminophen [Tylenol 325mg 650 mg PO Q6 PRN tab 04/06/18 tab] RX: Docusate [Colace] 100 mg PO DAILY cap 04/06/18 RX: Aspirin [Aspirin Chewable] 81 mg PO DAILY #30 chew 04/12/18 RX: Atorvastatin [Lipitor] 10 mg PO HS #30 tab 04/12/18 RX: Benzocaine/Menthol [Cepacol 1 clayton PO Q8 #15 clayton 04/12/18 Sore Throat] RX: Levothyroxine [Synthroid] 25 mcg PO DAILY #30 tab 04/12/18 RX: Losartan [Cozaar] 25 mg PO DAILY #30 tab 04/12/18 RX: Metoprolol Succinate XL 25 mg PO DAILY #30 tab 04/12/18 [Toprol XL] RX: Nitroglycerin 2% [Nitro-Bid 2% 1 ea TOP Q4 PRN #1 fp 04/12/18 Oint] RX: Pantoprazole [Protonix EC Tab] 40 mg PO DAILY #30 ect 04/12/18 RX: Phenol 1.4% Topical 1 spry MT Q8H #1 bottle 04/12/18 [Phenaseptic 1.4% Throat [place]] RX: Temazepam [Restoril] 15 mg PO HS #30 cap 04/12/18 RX: Warfarin [Coumadin] 3 mg PO QD5 #14 tab 04/12/18 - Allergies Allergies/Adverse Reactions: Allergies Allergy/AdvReac Type Severity Reaction Status Date / Time No Known Allergies Allergy Verified 04/16/18 12:38 Review of Systems Constitutional: Negative for: Fever, Chills, Weakness Cardiovascular: Negative for: Chest Pain, Palpitations Respiratory: Negative for: Cough, Shortness of Breath, Hemoptysis, SOB with Exertion, Wheezing Gastrointestinal: Positive for: Constipation. Negative for: Nausea, Vomiting, Abdominal Pain, Diarrhea Genitourinary Male: Negative for: Dysuria Neurological: Negative for: Numbness, Incoordination, Change in Speech Psych: Positive for: Anxiety <Nida Tellez - Last Filed: 05/09/18 13:13> ROS Statement: Except As Marked, All Systems Reviewed And Found Negative <Meliza Patino - Last Filed: 05/09/18 14:55> Physical Exam - Reviewed Nursing Documentation Reviewed: Yes Vital Signs Reviewed: Yes - Physical Exam Appears: Positive for: No Acute Distress Head Exam: Positive for: ATRAUMATIC, NORMAL INSPECTION Skin: Positive for: Normal Color, Warm, Dry Eye Exam: Positive for: Normal appearance, EOMI ENT: Positive for: Normal ENT Inspection, Pharynx Is (clear of erythema or exudates) Neck: Positive for: Painless ROM, Supple Cardiovascular/Chest: Positive for: Regular Rate, Rhythm, Chest Non Tender. Negative for: Murmur Respiratory: Positive for: Normal Breath Sounds. Negative for: Accessory Muscle Use Gastrointestinal/Abdominal: Positive for: Bowel Sounds, Soft. Negative for: Tenderness Back: Positive for: Normal Inspection Extremity: Negative for: Deformity Neurologic/Psych: Positive for: Alert, delivery manager II-XII, Oriented. Negative for: Motor/Sensory Deficits <Nida Tellez - Last Filed: 05/09/18 13:13> - Reviewed Nursing Documentation Reviewed: Yes - Physical Exam Neurologic/Psych: Positive for: Gait (steady) <Meliza Patino - Last Filed: 05/09/18 14:55> - Laboratory Results Result Diagrams: 05/09/18 11:05 05/09/18 11:05 - ECG O2 Sat by Pulse Oximetry: 99 <Nida Tellez - Last Filed: 05/09/18 13:13> - Laboratory Results Result Diagrams: 05/09/18 11:05 05/09/18 11:05 Lab Results: Troponin I < 0.0120 ng/mL (0.00-0.120) 05/09/18 11:05 <SukumarUsmanrosa Jones - Last Filed: 05/09/18 14:55> Medical Decision Making Medical Decision Makin yo M with chronic constipation, dysphagia/heartburn, dizziness; presenting with unchanging symptoms from prior visits. Rule out cardiac etiology. - BMP - EKG - Troponin 1215 Trop neg No acute changes on EKG BMP wnl Pt continues to deny chest pain or acute changes in symptoms. Spoke with PMD Dr. Carmen; stated patient was to start taking H2 blockers in the evening, and mylanta before meals; continue PPI in am. Called pt's pharmacy - pt picked up ranitidine that was prescribed on 05/03. Patient unclear whether he started new med or not. Will give 1 dose viscous lidocaine 2% 15 ml. Stable for discharge. Central scheduling called- appt made for f/u in clinic on 05/13 at 3:20 pm; patient aware of appt. All above discussed w/ Dr. Patino. <Nida Tellez - Last Filed: 05/09/18 13:13> Disposition - Patient ED Disposition Is Patient to be Admitted: No - Disposition Disposition: Routine/Home Disposition Time: 13:10 - POA Present On Arrival: None <Nida Tellez - Last Filed: 05/09/18 13:13> Discussed With Dr.: Lucio Carmen Doctor Will See Patient In The: Office Counseled Patient/Family Regarding: Studies Performed, Diagnosis, Need For Fo llowup <Meliza Patino - Last Filed: 05/09/18 14:55> - Clinical Impression Clinical Impression: Heartburn, Constipation, Throat pain - Disposition Referrals: Lucio Carmen MD [Family Provider] - 05/13/18 3:20 pm (Por favor llegue 20 min antes fede, a las 3 en la tarde.) Condition: GOOD Additional Instructions: Tiene eloy fede con Dr. Carmen en la clinica , a las 3:20 en la tarde. Por favor llegue 20 min antes grigsg fede. Necesita regresar a la emergencia si tiene dolor en pecho o problemas con respiracion (falta de aire). Instructions: Constipation in Adults, Acid Reflux (Gastroesophageal Reflux Disease) in Adults Print Language: SLOVAK
[2018-05-09 11:26] LABS: BASO # 0.1 K/uL (0.0-0.2); EOS # 0.3 K/uL (0.0-0.7); EOS % 6.1 % (0.0-4.0); HEMOGLOBIN 11.8 g/dL (12.0-18.0); LYMPH # 0.9 K/uL (1.0-4.3); LYMPH % 21.4 % (20.0-40.0); MEAN CORPUSCULAR HEMOGLOBIN 29.1 pg (27.0-31.0); MEAN CORPUSCULAR HGB CONC 33.1 g/dL (33.0-37.0); MEAN PLATELET VOLUME 9.4 fl (7.2-11.7); MONO # 0.6 K/uL (0.0-0.8); NEUT # 2.4 K/uL (1.8-7.0); NEUT % 56.5 % (50.0-75.0); NRBC % 0.3 % (0.0-0.0); RBC 4.04 Mil/uL (4.40-5.90); RED CELL DISTRIBUTION WIDTH 15.2 % (11.5-14.5); WHITE BLOOD COUNT 4.3 K/uL (4.8-10.8)
[2018-05-09 11:35] LABS: BLOOD UREA NITROGEN 20 mg/dl (9-20); GFR NON-AFRICAN AMERICAN 57
[2018-05-09 16:27] VITALS: BP 157/90; PULSE 80; RESP 18
--- NOTE | 2018-05-09 21:52 | CARD ---
APPROVED REPORT Date of service: 05/09/2018 EKG Measurement Heart [id number] 256P [id number] <Conclusion> AV dual-paced rhythm with prolonged AV conduction Abnormal ECG
== END 2018-05-09 15:30 | disposition home or self-care (01) ==
LOC: H.ER 09:29
DX: K21.9 Gastro-esophageal reflux disease without esophagitis (principal); K59.00 Constipation, unspecified; J02.9 Acute pharyngitis, unspecified; E03.9 Hypothyroidism, unspecified; E11.9 Type 2 diabetes mellitus without complications; E78.00 Pure hypercholesterolemia, unspecified; Z79.01 Long term (current) use of anticoagulants; I50.9 Heart failure, unspecified